=== PATIENT | female | born 1955 | race Caucasian/White ===

== ENCOUNTER 2019-04-28 07:08 | Outpatient (CLI) | payer MEDICARE, SELFPAY ==
--- NOTE | 2019-04-28 16:33 | WPDPFTINT ---
PFT Interpretation PFT Interpretation: DOS: 04/28/2019 REQUESTING: Dr. Mayers/ [place] REASON FOR TESTING: Asthma PULMONARY FUNCTION TESTS Results are reliable and reproducible. Spirometry: FEV1 is 54%, 1.3 L, moderately reduced. FVC 57%, moderately reduced. FEV1% is 76% consistent with airflow obstruction. [id number]% is reduced at 38%, increases by 24% after bronchodilator administration. Lung volumes: Total lung capacity is 61%, mildly reduced. RV/TLC ratio is 39% mild air trapping. Airway resistance is increased. Diffusion: DLCO is 62%, mildly decreased. Flow volume loop: Scooping of the expiratory limb. IMPRESSION: Mild obstructive ventilatory impairment which is severe in the small airways with a good response to bronchodilator in the small airways. Mild restriction, mild air trapping, increased airway resistance, and mild diffusion impairment. This is a mixed pattern with obstructive and restrictive processes. Elsi Sarkar MD
== END 2019-04-28 07:09 | disposition home or self-care (01) ==
LOC: CHSCARD 07:11
PROVIDERS: PCP Family Medicine; Visit Provider Internal Medicine Critical Care Medicine
DX: J45.909 Unspecified asthma, uncomplicated (principal)
CPT/HCPCS: 94060; 94726; 94729

== ENCOUNTER 2019-04-30 19:58 | Outpatient (CLI) | payer MEDICARE, SELFPAY ==
--- NOTE | 2019-05-18 12:33 | SLEEP_ITS ---
Split-night sleep study. DATE OF STUDY: 04/30/2019 ORDERING PHYSICIAN: Elsi Sarkar M.D. REASON FOR STUDY: History of hypercapnic hypoxemic respiratory failure, suspected obstructive sleep apnea syndrome. HISTORY: This patient is a 64-year-old female, 66 inches tall, weighing 214 pounds with a body mass index of 34.5. She has a history of hypercapnia with underlying lung disease, asthma, and witnessed apneas. She does not usually snore and it is not loud enough that others complain about it. She occasionally has trouble sleeping with a cold. She does not gasp for breath at night. She has been told by others that she does not breathe normally at night. She occasionally sweats excessively at night and occasionally notices her heart pounding or beating irregularly at night. She rarely falls asleep during the day. She does not fall asleep involuntarily or while driving. She does not have loss of muscle tone with strong emotion. She denies daytime difficulties due to excessive sleepiness. She does not feel paralyzed on waking or falling asleep and does not have vivid dreamlike scenes upon awakening or falling asleep. She is never afraid to go to sleep. She rarely has nightmares. She occasionally remembers her dreams. She frequently has racing thoughts. She rarely feels sad or depressed. She occasionally has anxiety. She does not have muscular tension. She rarely notices parts of her body jerking. She does not kick at night. She does not have crawly achy feelings in her legs. She rarely has leg pain at night. No morning jaw pain or grinding her teeth at night. She frequently is bothered by pain during the day. She occasionally is awakened by pain at night. She rarely wakes up feeling stiff in the morning with sore achy muscles or having pain in her neck or spine. Normal bedtime is 11:30-12 midnight taking 5 to 10 minutes to fall asleep, typically waking once at night to go to the bathroom. She wakes for the day at 7 to 8 a.m. Weekend schedule is the same. She does not take naps. MEDICAL COMORBIDITIES: Hypertension, asthma, seasonal allergies, kyphoscoliosis with restrictive lung physiology, history of DVT, pulmonary hypertension. MEDICATIONS: 1. Aspirin 325 mg a day. 2. Losartan 25 mg a day. 3. Metoprolol 25 mg daily. 4. Furosemide 40 mg a day. 5. Trelegy inhaler 1 puff daily. 6. Claritin 1 tablet daily. 7. Azelastine 1 squirt each nostril at night. 8. Benadryl 2 tablets at night as needed. 9. ProAir inhaler p.r.n. shortness of breath. HABITS: Tobacco, never smoked tobacco. One caffeinated beverage a day. No alcohol. DESCRIPTION OF THE STUDY: On the Mcandrews Sleepiness Scale, her score is 6. This was conducted as a split-night study using the KTM Advance multiple channel system including EOG, EEG, submental EMG, EKG, nasal and oral airflow using thermistors and nasal pressure sensors, chest and abdominal belts, body position data, and pulse oximetry. The study was scored using [facility] guidelines. Duration of the baseline diagnostic portion 185.1 minutes. Sleep time 165.5 minutes. Sleep efficiency 89.4%. Sleep latency was 14.7 minutes. REM latency 62 minutes. She had 4 awakenings. She spent 4.9 minutes awake after sleep onset. Sleep architecture showed 3% stage I sleep, 38.7% stage II sleep, 42.3% stage III sleep, and 16% stage REM. She spent 0.6% of this portion supine. The apnea-hypopnea index was 7.6. The obstructive index was 7.3 and the central index was 0.4. The lowest desaturation was 68%. She had 15 desaturations of 4% or greater for an index of 4.9. The REM desaturation index was 29.4. The mean saturation was 92.4%. She spent 48.6 minutes below 88%, which was 23.6% of the baseline portion. She had 12 obstructive apneas, 3 obs
== END 2019-04-30 19:59 | disposition home or self-care (01) ==
LOC: CHSCSM 20:00
PROVIDERS: PCP Family Medicine; Visit Provider Internal Medicine Critical Care Medicine
DX: G47.30 Sleep apnea, unspecified (principal)
CPT/HCPCS: 95811

== ENCOUNTER → 2019-05-08 13:00 | Outpatient (CLI) | payer MEDICARE, SELFPAY ==
--- NOTE | ~2019-05-08 | MMUS_ITS ---
EXAMINATION: MM diagnostic shreya BI w chastity, US breast LT limited HISTORY: Palpable lump in the upper outer quadrant of the left breast TECHNIQUE: Craniocaudal, mediolateral, and mediolateral oblique 3-D tomosynthesis images of the warren ts were performed and synthetic 2-D images were generated. CAD analysis was submitted and interpreted . High resolution limited left breast ultrasound was performed. COMPARISON: 06/20/2017, 06/06/2017, 03/28/2015, 05/22/2013 BREAST PARENCHYMAL COMPOSITION: The breasts are almost entirely fatty. FINDINGS: MAMMOGRAPHIC FINDINGS: There is no evidence of suspicious mass, calcification, or architectural distortion in either breast to suggest malignancy. There has been no suspicious interval change. No mammographic correlate is i dentified for the reported palpable abnormality of concern in the left breast. ULTRASOUND: There is no evidence of focal abnormal solid or cystic lesion in the vicinity of the reported palpabl e abnormalities concern of the left breast IMPRESSION: 1. No specific mammographic or sonographic correlate is identified for the reported palpable abnormal ity of concern in the left breast. Further evaluation at this time should be based on clinical assess ment. Continued follow-up physical examination is recommended. 2. Recommend routine screening mammography in one year. BI-RADS Category 1: Negative Reviewed, dictated and finalized at location A. IMPRESSION: 1. No specific mammographic or sonographic correlate is identified for the repo rted palpable abnormality of concern in the left breast. Further evaluation at this time should be based on clinical assessment. Continued follow-up physical examination is recommended. 2. Recommend routine screening mammography in one year. BI-RADS Category 1: Negative
== END ==
PROVIDERS: PCP Family Medicine; Visit Provider Obstetrics & Gynecology
DX: Z12.31 Encounter for screening mammogram for malignant neoplasm of breast (principal); N63.21 Unspecified lump in the left breast, upper outer quadrant
CPT/HCPCS: 76642; 77062; 77066; G0279

== ENCOUNTER → 2019-09-29 12:12 | Outpatient (CLI) | payer MEDICARE, SELFPAY ==
--- NOTE | ~2019-09-29 | DEXA_ITS ---
Bone Density Report Name: Lucita Vallejo Age: 64 Sex: Female Ethnicity: White Date of : 1955 Indication: osteopenia; history of glucocorticoids; asthma or emphysema; postmenopausal Referring Provider: DARLING MELGAR Study: Bone densitometry was performed. Exam Date: September 29, 2019 Accession number: [id number] Bone Density: Region BMD T-score Z-score Classification AP Spine (L1-L4) 0.818 -2.1 -0.3 Osteopenia Femoral Neck (Left) 0.659 -1.7 -0.2 Osteopenia Total Hip (Left) 0.914 -0.2 1.0 Normal Femoral Neck (Right) 0.674 -1.6 0.0 Osteopenia Total Hip (Right) 1.028 0.7 2.0 Normal Total Hip Mean 0.971 0.3 1.5 Normal World Health Organization criteria for BMD impression classify patients as: Normal (T-score at or above -1.0), Osteopenia (T-score between -1.0 and -2.5), or Osteoporosis (T-score at or below -2.5). 10-year Fracture Risk(1): Major Osteoporotic Fracture 15% Hip Fracture 2.1% Reported Risk Factors: [place] (), Neck BMD=0.659, BMI=32.9, glucocorticoids (1) FRAX(R) Version 3.08. Fracture probability calculated for an untreated patient. Fracture probability may be lower if the patient has received treatment. Previous Exams: Region Exam Age BMD T-score BMD Change BMD Change Date g/cm2 vs Baseline vs Previous AP Spine(L1-L4) 09/29/2019 64 0.818 -2.1 -0.067 -0.007 06/06/2017 62 0.826 -2.0 -0.060 0.026* 05/22/2013 58 0.800 -2.2 -0.086 0.018 01/08/2011 55 0.781 -2.4 -0.104 -0.043 01/06/2010 54 0.824 -2.0 -0.061 -0.011 01/06/2008 52 0.835 -1.9 -0.051* -0.051* 10/01/2005 50 0.885 -1.5 Total Hip(Left) 09/29/2019 64 0.914 -0.2 0.045 -0.109* 06/06/2017 62 1.023 0.7 0.154 0.048* 05/22/2013 58 0.975 0.3 0.106 0.044* 01/08/2011 55 0.931 -0.1 0.062 0.053* 01/06/2010 54 0.877 -0.5 0.009 -0.072 01/06/2008 52 0.949 0.1 0.081* 0.081* 10/01/2005 50 0.869 -0.6 Total Hip(Right) 09/29/2019 64 1.028 0.7 0.069 -0.020 06/06/2017 62 1.048 0.9 0.089 0.098* 05/22/2013 58 0.950 0.1 -0.009 0.066* 01/08/2011 55 0.884 -0.5 -0.075 -0.015 01/06/2010 54 0.899 -0.4 -0.060 -0.079 01/06/2008 52 0.977 0.3 0.019 0.019 10/01/2005 50 0.959 0.1
== END ==
PROVIDERS: Visit Provider Obstetrics & Gynecology
DX: Z78.0 Asymptomatic menopausal state (principal); M85.89 Other specified disorders of bone density and structure, multiple sites
CPT/HCPCS: 77080

== ENCOUNTER 2019-12-21 07:50 | Outpatient (CLI) | payer MEDICARE, SELFPAY ==
--- NOTE | 2020-01-20 11:48 | WPDHOMESLEEP ---
Sleep Study - Home Unattended Date of Study: 12/21/19 Ordering Provider: Elsi Sarkar MD Interpreting Physician: Elsi Sarkar MD Home Sleep Study Type: Apnea Link Air Height: 1.68 m Weight: 91.172 kg Body Mass Index: 32.4 Neck Circumference (inches): 17 [place]: 4 Reason for Sleep Study Known JESSEE and severe nocturnal hypoxemia, poor response to therapy Sleep History Lucita Vallejo is a 64 yo female with a history of congestive heart failure EF 45%, hypercapnic respiratory failure due to restrictive lung disease associated with to kyphoscoliosis as well as asthma-COPD overlap. She has been on BiPAP 02/01 with 2 liters/minute oxygen with sleep which was prescribed after her April 30, 2019 split night study. Although she has been complaint and the AHI was controlled, she has not felt better. She has not felt refreshed using it. Since that time she has lost 20 lb. The patient was hospitalized in February, had low oxygen levels with elevated carbon dioxide. She has a history of hypercapnia with underlying lung disease, asthma, and witnessed apneas. She does not usually snore and it is not loud enough that others complain about it. She occasionally has trouble sleeping with a cold. She does not gasp for breath at night. She has been told by others that she does not breathe normally at night. She occasionally sweats excessively at night and occasionally notices her heart pounding or beating irregularly at night. She rarely falls asleep during the day. She does not fall asleep involuntarily or while driving. She does not have loss of muscle tone with strong emotion. She denies daytime difficulties due to excessive sleepiness. She does not feel paralyzed on waking or falling asleep and does not have vivid dreamlike scenes upon awakening or falling asleep. She is never afraid to go to sleep. She rarely has nightmares. She occasionally remembers her dreams. She frequently has racing thoughts. She rarely feels sad or depressed. She occasionally has anxiety. She does not have muscular tension. She rarely notices parts of her body jerking. She does not kick at night. She does not have crawly achy feelings in her legs. She rarely has leg pain at night. No morning jaw pain or grinding her teeth at night. She frequently is bothered by pain during the day. She occasionally is awakened by pain at night. She rarely wakes up feeling stiff in the morning with sore achy muscles or having pain in her neck or spine. Normal bedtime is 11:30-12 midnight taking 5 to 10 minutes to fall asleep, typically waking once at night to go to the bathroom. She wakes for the day at 7 to 8 a.m. Weekend schedule is the same. She does not take naps. [facility] Past Medical History Medical History Acute and chronic respiratory failure with hypercapnia Asthma Asthma Asthma-COPD overlap syndrome Bronchitis CHF (congestive heart failure) Systolic Diverticulitis DVT (deep venous thrombosis) Both legs after a trip to [place] History of ovarian cyst History of pneumonia HTN (hypertension) with goal to be determined Kyphoscoliosis Pulmonary hypertension Surgical History Surgical History History of removal of ovarian cyst History of surgery on arm lt. 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 Her is the power state's attorney. She desires to be a full code.
[2020-01-25 13:22] VITALS: BMI 32.4
== END 2019-12-21 07:51 | disposition home or self-care (01) ==
LOC: ANHCSM 07:54
PROVIDERS: PCP Family Medicine; Visit Provider Internal Medicine Critical Care Medicine
DX: G47.33 Obstructive sleep apnea (adult) (pediatric) (principal)
CPT/HCPCS: 95806

== ENCOUNTER 2019-12-24 09:03 | Outpatient (CLI) | payer MEDICARE, SELFPAY ==
--- NOTE | 2019-12-27 13:03 | WPDPFTINT ---
PFT Interpretation PFT Interpretation: This Spirometry met all criteria for ATS standards and reproducibility FEV/FVC 71% FEV1 53% or 1.22 liters FVC 54% or 1.71 liters Flow volume loops showed significant expiratory coving. Impression: Moderate airflow obstruction. Clinical correlation is advised.
== END 2019-12-24 09:04 | disposition home or self-care (01) ==
PROVIDERS: PCP Family Medicine; Visit Provider Internal Medicine Critical Care Medicine
DX: J45.909 Unspecified asthma, uncomplicated (principal); R94.2 Abnormal results of pulmonary function studies
CPT/HCPCS: 94375

== ENCOUNTER 2020-06-29 15:10 | Outpatient (CLI) | payer MEDICARE, SELFPAY ==
[2020-06-29 15:59] LABS: SARS-CoV-2 RNA PCR Negative (Negative)
== END 2020-06-29 15:11 | disposition home or self-care (01) ==
LOC: CHSLAB 15:13
PROVIDERS: PCP Internal Medicine; Visit Provider Internal Medicine Critical Care Medicine
DX: Z01.812 Encounter for preprocedural laboratory examination (principal); Z20.822 Contact with and (suspected) exposure to COVID-19
CPT/HCPCS: C9803; U0003; U0005

== ENCOUNTER 2020-07-01 19:55 | Outpatient (CLI) | payer MEDICARE, SELFPAY ==
--- NOTE | 2020-07-08 09:14 | WPDSLEEPSTUD ---
Sleep Study Ordering Provider: Elsi Sarkar MD Interpreting Physician: Jose Rodriges MD Sleep Study Type: Polysomnogram Height: 1.68 m Weight: 92.986 kg Body Mass Index: 33.0 Neck Circumference (inches): 19 [place]: 2 Reason for Sleep Study Patient has history of obstructive sleep apnea which was identified during her hospitalization in 2019. Patient was recommended to use BiPAP but was aperture and Diederich intolerant. Currently has a mandibular advancement device. Sleep History Patient's sleep history does not mention significant sleep-related symptoms. . As a matter of fact patient mentions that she was unaware of the problem till she was informed about it in February of 2019. . [facility] Past Medical History Medical History Acute respiratory failure with hypoxia and hypercapnia Asthma-COPD overlap syndrome Bronchitis CHF (congestive heart failure) Systolic Diverticulitis DVT (deep venous thrombosis) Both legs after a trip to [place] History of ovarian cyst History of pneumonia HTN (hypertension) with goal to be determined Kyphoscoliosis Pulmonary hypertension Surgical History Surgical History History of removal of ovarian cyst History of surgery on arm lt. 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 Her is the power state's attorney. She desires to be a full code. She has 3 children. Lifelong nonsmoker. No alcohol. No illicit drugs. Lives with her Smoking status: Never smoker Second hand tobacco smoke exposure: No Alcohol intake: current Drinks per week: 1 Substance use: never Gender identity (if verbalized by the patient): Female Spiritual care concerns: No Agree to blood products: Yes Medications Home Medications Medication Instructions Recorded Confirmed Type albuterol sulfate [ProAir HFA] 2 puff INHALATION QID PRN 03/03/19 06/06/20 History aspirin 325 mg PO DAILY 03/03/19 06/06/20 History loratadine 10 mg PO DAILY 03/03/19 06/06/20 History losartan 25 mg PO DAILY 03/03/19 06/06/20 History metoprolol succinate 25 mg PO DAILY 03/03/19 06/06/20 History calcium carbonate 600 mg calcium 600 mg PO DAILY 12/31/19 06/06/20 History (1,500 mg) tablet cholecalciferol (vitamin D3) 50 50 mcg PO DAILY 12/31/19 06/06/20 History mcg (2,000 unit) capsule furosemide 20 mg tablet 40 mg PO DAILY tablet 06/06/20 06/06/20 History Sleep Procedure Patient underwent overnight polysomnography with the dental device in place. The device is Prosomnus ALYSON with javier. it was adjusted during the sleep study. Initial setting was 1 mm was increased to 3 mm in the last part of the study. Sleep Architecture Total recording time 520 minutes, total sleep time 336 minutes with 64.7% sleep efficiency. Sleep latency was 7 minutes, REM latency 381 minutes. Awake after sleep onset 176 minutes, stage N1 32.8%, N2 65.2%, N3 0%, stage R 1.9%. supine sleep 0% Respiratory Analysis CMS criteria used. - Patient had 1 central apnea with index 0.2, 16 hypopneas with index 2.9, AHI 3.0 . REM index 55.4, non-REM index 2.0. All events occurred in nonsupine sleep. Arousals Total arousals 138 with index 15.9, spontaneous arousals 121, snore arousals 14, hypopnea arousals 2, leg movement arousals 1. Periodic Limb Movements There was 1 isolated leg movement, no PLM. Oximetry D
[2020-07-08 09:34] VITALS: BMI 33.0
== END 2020-07-01 19:56 | disposition home or self-care (01) ==
LOC: CHSCSM 19:55
PROVIDERS: PCP Internal Medicine; Visit Provider Internal Medicine Critical Care Medicine
DX: G47.33 Obstructive sleep apnea (adult) (pediatric) (principal); I27.20 Pulmonary hypertension, unspecified
CPT/HCPCS: 95810

== ENCOUNTER 2021-12-18 11:10 | Outpatient (CLI) | payer MEDICARE, SELFPAY ==
--- NOTE | ~2021-12-18 | XR_ITS ---
XR chest 2V 12/18/2021 11:50 Indication: Hypoxia. Pulmonary fibrosis. Procedure: PA and lateral views of the chest Comparison: 03/03/2019 Findings: Cardiomegaly. Enlarged central pulmonary arteries consistent with pulmonary hypertension. B ibasilar airspace disease may represent atelectasis or pneumonia. There is a wedge-shaped deformity o f the upper thoracic spine. There is accentuated kyphosis at this level. Impression: 1: Bibasilar infiltrates may represent atelectasis and/or pneumonia. 2: Enlarged central pulmonary arteries consistent with pulmonary hypertension. Reviewed, dictated and finalized at location B. Impression: 1: Bibasilar infiltrates may represent atelectasis and/or pneumonia. 2: Enlarged central pulmonary arteries consistent with pulmonary hypertension.
[2021-12-18 11:28] LABS: Base Excess ABG 7.9 mmol/L (0-2); Basophils Absolute Auto 0.03 K/mm3 (0.00-0.10); Basophils Percent Auto 0.4 % (0.0-1.0); Eosinophils Absolute Auto 0.13 K/mm3 (0.02-0.50); Eosinophils Percent Auto 1.8 % (1.0-6.0); HCO3 ABG 35.9 mmol/L (23-29); Hematocrit 51.4 % (35.0-42.0); Hemoglobin 15.3 g/dL (11.7-13.8); Immature Granulocyte Absolute 0.02 K/mm3 (0.00-0.00); Immature Granulocyte Percent A 0.3 % (0.0-0.0); Lymphocytes Absolute Auto 1.23 K/mm3 (1.10-4.50); Lymphocytes Percent Auto 16.8 % (18.0-42.0); Mean Corpuscular HGB Conc 29.8 g/dL (32.0-36.0); Mean Corpuscular Hemoglobin 28.3 pg (27.0-31.0); Mean Platelet Volume 10.2 fl (9.2-11.8); Monocytes Percent Auto 10.9 % (2.0-11.0); Neutrophils Absolute Auto 5.1 K/mm3 (1.7-7.2); Neutrophils Percent Auto 69.8 % (50.0-70.0); Oxygen Content ABG 19.7 %vol (16.0-22.0); Oxygen Saturation ABG 87.3 % (95-97); Oxyhemoglobin 85.2 % (94-100); PCO2 ABG 62.8 mmHg (35-45); PO2 ABG 52.1 mmHg (75-85); Platelet Count Result 172 K/mm3 (150-420); Red Blood Count 5.41 M/mm3 (4.20-5.40); Total Hemoglobin 16.5 g/dL (12.0-18.0); White Blood Count 7.3 K/mm3 (4.8-10.8); pH ABG 7.38 (7.35-7.45)
[2021-12-18 11:29] LABS: Device ROOM AIR; Modified Allen's Test Pass; Site Drawn LEFT RADIAL
[2021-12-18 11:55] LABS: Hemoglobin A1C 6.3 % (<5.7)
[2021-12-18 12:14] LABS: Alanine Aminotransferase 27 U/L (14-59); Albumin Level 3.1 g/dL (3.4-5.0); Alkaline Phosphatase 57 U/L (46-116); Anion Gap 3 mmol/L (8-16); Aspartate Amino Transferase 23 U/L (15-37); Bilirubin,Total 0.4 mg/dL (0.00-1.00); Blood Urea Nitrogen 15 mg/dL (7-18); Calcium 8.2 mg/dL (8.5-10.1); Carbon Dioxide 38 mmol/L (21-32); Chloride 97 mmol/L (98-108); Cholesterol 130 mg/dL (0-200); Estimated Glomerular Filt Rate 59; Free T4 Free Thyroxine 1.07 ng/dL (0.76-1.46); Glucose 99 mg/dL (70-99); HDL Direct 39 mg/dL (40-60); LDL Cholesterol Calculated 75 mg/dL (<130); NT Pro B Type Natriuretic Pept 1052 pg/mL (0-125); Osmolality Calculated 286 mOsm/kg (285-295); Potassium 4.5 mmol/L (3.5-5.1); Sodium 138 mmol/L (136-145); Thyroid Stimulating Hormone 2.88 uIU/mL (0.36-3.74); Total Protein 6.7 g/dL (6.4-8.2); Triglycerides 79 mg/dL (0-150)
== END 2021-12-18 11:11 | disposition home or self-care (01) ==
PROVIDERS: PCP Internal Medicine; Visit Provider Internal Medicine
DX: I50.42 Chronic combined systolic (congestive) and diastolic (congestive) heart failure (principal); I27.20 Pulmonary hypertension, unspecified; R73.01 Impaired fasting glucose; R09.02 Hypoxemia
CPT/HCPCS: 36415; 36600; 71046; 80053; 80061; 82805; 83036; 83880; 84439; 84443; 85025

== ENCOUNTER 2021-12-19 08:46 | Outpatient (CLI) | payer MEDICARE, SELFPAY ==
--- NOTE | ~2021-12-19 | CT_ITS ---
EXAMINATION: CTA chest PE protocol DATE: 12/19/2021 10:00 INDICATION: Shortness of breath. TECHNIQUE: Computed tomography angiography (CTA) of the chest was performed with 100 mL Omnipaque-350 intravenous contrast timed to evaluate the pulmonary arteries. Coronal maximum intensity projection 3D-reconstructions were created by the technologist. Automated exposure control and iterative reconst ruction technique were employed. The dose-length product was 595.55 mGy-cm. COMPARISON: Chest CT 03/04/2019 FINDINGS: The lungs demonstrate mild atelectasis. Motion artifact is noted. A calcified left lung nod ule is consistent with old granulomatous disease. No pleural effusion. Cardiomegaly is noted. No rashaun cardial effusion. There is no pulmonary embolus. There is a 5 mm cyst in the liver. There are old rig ht rib deformities. There are segmentation anomalies in superior thoracic spine with focal kyphosis. IMPRESSION: 1. No pulmonary embolus. Sensitivity is severely decreased by motion artifact. 2. Cardiomegaly. Reviewed, dictated and finalized at location A.
[2021-12-19 10:40] VITALS: PULSE 87; O2SAT 95
[2021-12-19 10:42] VITALS: PULSE 110; O2SAT 83
[2021-12-19 10:45] VITALS: PULSE 95; O2SAT 83
[2021-12-19 10:48] VITALS: PULSE 94; O2SAT 83
[2021-12-19 10:51] VITALS: PULSE 98; O2SAT 93
--- NOTE | 2021-12-19 12:07 | HOMEO2EVAL ---
Evaluation was performed at [facility] Home Oxygen Evaluation RC: Home Oxygen (O2) Evaluation Start: 12/19/21 11:57 Freq: Status: Active Protocol: RPE Activity Type Activity Date Activity User E-sign Co-sign Detail Recorded Client Recorded Date Recorded By Document 12/19/21 10:40 [id number] 12/19/21 12:07 CH Document 12/19/21 10:42 CH [id number] 12/19/21 12:07 CH Document 12/19/21 10:45 [id number] 12/19/21 12:07 Document 12/19/21 10:48 [id number] 12/19/21 12:07 Document 12/19/21 10:51 CH [id number] 12/19/21 12:07 12/19/21 12/19/21 12/19/21 10:40 10:42 10:45 Home O2 Evaluation [Oxygen] -Test Phase Resting Exercise Exercise -Oxygen Delivery Room Air Room Air Nasal Cannula -Oxygen Flow Rate (L/min) 1 [Pulse Oximetry] -Pulse Oximetry (90-100 %) 95 83 L 83 L [Pulse Rate] -Pulse Rate (60-100 beats/min) 87 110 H 95 [Evaluation] -Activity Tolerance Fair Fair -Rating of Perceived Dyspnea (PD) +2 Mild, Some +2 Mild, Some Difficulty, Difficulty, Noticeable to Noticeable to the Observer the Observer -Rate of Perceived Exertion (PE) 9 Very light 9 Very light Query Text:Click the Protocol Button to View the RPE Scale [Exercise] -Ambulation Distance (feet) 130 190 -Ambulation Distance (meters) 39.62 57.90 [Comments] -Home Oxygen Evaluation Comments will begin walk will start 1 will increase . LPM. to 2 LPM. [Charges] -Treatment Charges O2 Evaluation - Outpatient 12/19/21 12/19/21 10:48 10:51 Home O2 Evaluation [Oxygen] -Test Phase Exercise Exercise -Oxygen Delivery Nasal Cannula Nasal Cannula -Oxygen Flow Rate (L/min) 2 3 [Pulse Oximetry] -Pulse Oximetry (90-100 %) 83 L 93 [Pulse Rate] -Pulse Rate (60-100 beats/min) 94 98 [Evaluation] -Activity Tolerance Fair Good -Rating of Perceived Dyspnea (PD) +2 Mild, Some +2 Mild, Some Difficulty, Difficulty, Noticeable to Noticeable to the Observer the Observer -Rate of Perceived Exertion (PE) 12 12 Query Text:Click the Protocol Button to View the RPE Scale [Exercise] -Ambulation Distance (feet) 250 260 -Ambulation Distance (meters) 76.19 79.24 [Comments] -Home Oxygen Evaluation Comments will increase Finished the to 3 lpm. walk on 3LPM with SPO2 at 93 % and above. Total walked 935 feet pushing a wheelchair. PLB encouraged. [Charges] -Treatment Charges
== END 2021-12-19 08:47 | disposition home or self-care (01) ==
LOC: CHSIMG 08:48
PROVIDERS: PCP Internal Medicine; Visit Provider Internal Medicine
DX: R06.02 Shortness of breath (principal); R09.02 Hypoxemia; I50.42 Chronic combined systolic (congestive) and diastolic (congestive) heart failure; I27.20 Pulmonary hypertension, unspecified
CPT/HCPCS: 71275; 94618; Q9967

== ENCOUNTER 2021-12-21 09:16 | Outpatient (CLI) | payer MEDICARE, SELFPAY ==
--- NOTE | ~2021-12-21 | CT_ITS ---
EXAMINATION: CT chest high resolution wo nv DATE: 12/21/2021 09:45 INDICATION: Shortness of breath. Low oxygen saturation. TECHNIQUE: Computed tomography (CT) of the chest was performed without intravenous contrast. The dose -length product was 334.58 mGy-cm. Automated exposure control and iterative reconstruction technique were employed. COMPARISON: CT dated 12/19/2021 FINDINGS: There is mild atherosclerosis of ectasia of the aorta. No evidence for aneurysm. Cardiomega ly. No significant pleural or pericardial effusion. There is a Bochdalek hernia. No thoracic lymphade nopathy. There are old right rib deformities. Segmentation anomalies in the upper thoracic spine. The re is bilateral basilar atelectasis/scarring without significant change. There is mild interlobular s eptal thickening of the right lower lobe. No pneumothorax. IMPRESSION: 1. Stable linear infiltrates of the mid and lower lungs with areas of interlobular septal thickening which may represent atelectasis and/or fibrosis. 2: Cardiomegaly. Reviewed, dictated and finalized at location B. IMPRESSION: 1. Stable linear infiltrates of the mid and lower lungs with areas of interlobu lar septal thickening which may represent atelectasis and/or fibrosis. 2: Cardiomegaly.
== END 2021-12-21 09:17 | disposition home or self-care (01) ==
LOC: CHSIMG 09:18
PROVIDERS: PCP Internal Medicine; Visit Provider Internal Medicine
DX: R06.02 Shortness of breath (principal); J84.10 Pulmonary fibrosis, unspecified
CPT/HCPCS: 71250

== ENCOUNTER 2021-12-29 13:16 | Outpatient (CLI) | payer MEDICARE, SELFPAY ==
--- NOTE | 2021-12-29 14:28 | ECHO_ITS ---
Patient Info Name: Lucita Vallejo Age: 66 years : 1955 Gender: Female Ht: 66 in Wt: 212 lbs BSA: 2.15 m2 HR: 79 bpm BP: 117 / 63 mmHg Technical Quality: Fair Exam Date: 12/29/2021 1:22 PM Exam Location: [facility] [place] Patient Status: Outpatient Admit Date: 12/29/2021 Staff Ordering Physician: Sreedhar Ortega MD Rheostat Assembler: Sidney Husain RDCS, RT Attending Provider: Sreedhar Ortega MD Referring Physician: Jordan MCFARLANE; Exam Type: CA echo doppler color flow Study Info Indications J96.91 - Respiratory failure, unspecified with hypoxia Complete two-dimensional, color flow and Doppler transthoracic echocardiogram is performed. Strain analysis performed. Summary 1. Complete two-dimensional, color flow and Doppler transthoracic echocardiogram is performed. 2. Left ventricular chamber dimension is normal. 3. Left ventricular systolic function is normal, estimated at 65-70%. 4. The left ventricular diastolic function is normal. 5. E/e' 5 is not elevated. 6. Global longitudinal strain is abnormal at -11.2%. 7. Left atrial chamber dimension is mildly enlarged. 8. There is mild tricuspid valve regurgitation. 9. Moderate pulmonary hypertension, estimated pulmonary arterial systolic pressure is 55 mmHg. 10. There is trace pulmonic regurgitation. Left Ventricle E/e' 5 is not elevated. Global longitudinal strain is abnormal at -11.2%. Left ventricular chamber dimension is normal. Left ventricular systolic function is normal, estimated at 65-70%. The left ventricular diastolic function is normal. Right Ventricle Right ventricular systolic function is normal and with normal TAPSE 2.3 cm. Right ventricular chamber dimension is normal. Left Atria Left atrial chamber dimension is mildly enlarged. Right Atria Right atrial chamber dimension is normal. Aortic Valve The aortic valve is trileaflet. There is no aortic valve stenosis. There is no aortic valve regurgitation. Pulmonic Valve There is trace pulmonic regurgitation. Mitral Valve There is no mitral valve stenosis. There is no mitral valve regurgitation. Tricuspid Valve There is mild tricuspid valve regurgitation. Moderate pulmonary hypertension, estimated pulmonary arterial systolic pressure is 55 mmHg. Pericardium/Pleural There is no pericardial effusion. Inferior Vena Cava Normal inferior vena cava with >50% collapse upon inspiration consistent with normal right atrial pressure, 5 mmHg. Aorta The aortic root size at the sinus of Valsalva is normal. Left Ventricular Outflow Tract Name Value Normal LVOT 2D LVOT Diameter 2.0 cm LVOT Doppler LVOT Peak Velocity 87 cm/s LVOT Peak Gradient 3 mmHg LVOT Mean Gradient 2 mmHg LVOT VTI 18 cm LVOT VTI/AV VTI Ratio 0.7 LVOT Stroke Volume 54 ml Mitral Valve Name Value Normal
== END 2021-12-29 13:17 | disposition home or self-care (01) ==
LOC: CHSIMG 13:17
PROVIDERS: PCP Internal Medicine; Visit Provider Internal Medicine
DX: R09.02 Hypoxemia (principal); I50.42 Chronic combined systolic (congestive) and diastolic (congestive) heart failure; I27.20 Pulmonary hypertension, unspecified; R73.01 Impaired fasting glucose
CPT/HCPCS: 93306

== ENCOUNTER 2022-01-04 15:02 | Outpatient (CLI) | payer MEDICARE, SELFPAY ==
--- NOTE | 2022-01-10 11:46 | P.PCNPFT_ITS ---
PFT Procedure Performed PFT Procedure Performed Plethysmography (Lung Vol) Diffusing Cap (DLCO) Flow Vol Loop Spirometry w/o Bronchodil PFT Interpretation This is a pulmonary function test with spirometry, plethysmography and diffusing capacity. The test was performed and results interpreted in accordance with the 2019 and 2005 ATS/ERS Task Force guidelines respectively using the Global Lung Function Initiative-2012 reference equations. Patient demonstrated good effort and cooperation. Reproducibility criteria were met. The quality of the spirometry maneuver was Grade A. Findings: Spirometry: The contour the expiratory flow tracing remain as embolus is that of a witch's hat . The FVC is 1.26 L, 40% predicted. The FEV1 is 0.92 L, 37% predicted. The FEV1: FVC ratio 73%. Plethysmography: The total lung capacity is 3.19 L, 59% predicted. The functional residual capacity is 2.04 L, 67% predicted. The residual volume is 1.66 L, 74% predicted. Diffusing capacity: The diffusing capacity unadjusted for hemoglobin and carboxyhemoglobin is 15.6, 72% predicted. The diffusing capacity adjusted for alveolar volume is 6.36, 150% predicted. Impression: There is a severe restrictive ventilatory abnormality. The spirometry is normal without evidence of an obstructive abnormality. The di ffusing capacity unadjusted for hemoglobin and carboxyhemoglobin is normal and is elevated when adjusted for alveolar volume. There are no prior studies for comparison
== END 2022-01-04 15:03 | disposition home or self-care (01) ==
LOC: ANHPFT 15:03
PROVIDERS: PCP Internal Medicine; Visit Provider Internal Medicine
DX: R09.02 Hypoxemia (principal); R06.00 Dyspnea, unspecified; J84.10 Pulmonary fibrosis, unspecified
CPT/HCPCS: 94375; 94726; 94729

== ENCOUNTER 2022-01-05 08:59 | Outpatient (CLI) | payer MEDICARE, SELFPAY | END 2022-01-05 09:00 | disposition home or self-care (01) | LOC: CHSCARD 09:01 | PROVIDERS: PCP Internal Medicine; Visit Provider Internal Medicine | DX: R09.02 Hypoxemia (principal); I50.42 Chronic combined systolic (congestive) and diastolic (congestive) heart failure; I27.20 Pulmonary hypertension, unspecified; R73.01 Impaired fasting glucose | CPT/HCPCS: 95012 ==

== ENCOUNTER 2022-04-18 18:08 | Outpatient (CLI) | payer MEDICARE, SELFPAY ==
[2022-04-18 18:59] LABS: Influenza A QL RT-PCR Negative (Negative); Influenza B QL RT-PCR Negative (Negative); SARS-CoV-2 RNA PCR Negative (Negative)
== END 2022-04-18 18:09 | disposition home or self-care (01) ==
LOC: CHSLAB 18:10
PROVIDERS: PCP Internal Medicine; Visit Provider Internal Medicine
DX: J06.9 Acute upper respiratory infection, unspecified (principal); Z20.822 Contact with and (suspected) exposure to COVID-19
CPT/HCPCS: 87636

== ENCOUNTER 2023-01-01 10:40 | Outpatient (CLI) | payer MEDICARE, SELFPAY ==
[2023-01-01 11:03] LABS: Base Excess ABG 7.4 mmol/L (0-2); Basophils Absolute Auto 0.05 K/mm3 (0.00-0.10); Basophils Percent Auto 0.9 % (0.0-1.0); Eosinophils Absolute Auto 0.19 K/mm3 (0.02-0.50); Eosinophils Percent Auto 3.3 % (1.0-6.0); HCO3 ABG 31.9 mmol/L (23-29); Hematocrit 46.4 % (35.0-42.0); Hemoglobin 13.6 g/dL (11.7-13.8); Immature Granulocyte Absolute 0.01 K/mm3 (0.00-0.00); Immature Granulocyte Percent A 0.2 % (0.0-0.0); Lymphocytes Percent Auto 24.2 % (18.0-42.0); Mean Corpuscular HGB Conc 29.3 g/dL (32.0-36.0); Mean Corpuscular Hemoglobin 29.4 pg (27.0-31.0); Mean Corpuscular Volume 100.2 fL (78.0-102.0); Mean Platelet Volume 10.4 fl (9.2-11.8); Monocytes Absolute Auto 0.47 K/mm3 (0.10-0.90); Monocytes Percent Auto 8.1 % (2.0-11.0); Neutrophils Absolute Auto 3.7 K/mm3 (1.7-7.2); Neutrophils Percent Auto 63.3 % (50.0-70.0); Oxygen Content ABG 19.7 %vol (16.0-22.0); PCO2 ABG 44.1 mmHg (35-45); PO2 ABG 108.7 mmHg (75-85); Platelet Count Result 199 K/mm3 (150-420); Red Blood Count 4.63 M/mm3 (4.20-5.40); Red Cell Distribution Width 12.4 % (11.6-14.4); Total Hemoglobin 14.5 g/dL (12.0-18.0); White Blood Count 5.8 K/mm3 (4.8-10.8); pH ABG 7.48 (7.35-7.45)
[2023-01-01 11:04] LABS: Device ROOM AIR; Modified Allen's Test Pass; Site Drawn LEFT RADIAL
[2023-01-01 11:07] LABS: Appearance Urine Clear (Clear); Bilirubin Urine 1+ (Negative); Blood Urine Negative (Negative); Color Urine Yellow (Yellow); Glucose Urine UA Negative (Negative); Ketones Urine Negative (Negative); Leukocyte Esterase Ur 1+ (Negative); Nitrate Urine Negative (Negative); Protein Urine Trace (Negative); Specific Grav Ur >= 1.030 (1.010-1.020)
[2023-01-01 11:12] LABS: Add Urine Microscopic? YES; Bacteria Urine 1+ /hpf; Mucus Urine Rare /lpf; RBC Urine None seen /hpf (0-2); Squamous Epithelial Cell Urine Few /hpf (Few)
[2023-01-01 11:13] LABS: MALB Creatinine Ratio 7.4 mg/g (0-30); Microalbumin Urine Random 25.2 mg/L
[2023-01-01 11:14] LABS: Hemoglobin A1C 5.9 % (<5.7)
[2023-01-01 11:36] LABS: Alanine Aminotransferase 20 U/L (14-59); Albumin Level 3.3 g/dL (3.4-5.0); Alkaline Phosphatase 65 U/L (46-116); Anion Gap 8 mmol/L (8-16); Aspartate Amino Transferase 13 U/L (15-37); Bilirubin,Total 0.5 mg/dL (0.00-1.00); Blood Urea Nitrogen 11 mg/dL (7-18); Carbon Dioxide 31 mmol/L (21-32); Chloride 99 mmol/L (98-108); Cholesterol 176 mg/dL (0-200); Creatine Kinase 40 U/L (26-192); Estimated Glomerular Filt Rate > 60; Free T4 Free Thyroxine 1.02 ng/dL (0.76-1.46); Glucose 111 mg/dL (70-99); HDL Direct 58 mg/dL (40-60); LDL Cholesterol Calculated 105 mg/dL (<130); NT Pro B Type Natriuretic Pept 58 pg/mL (0-125); Osmolality Calculated 286 mOsm/kg (285-295); Potassium 3.5 mmol/L (3.5-5.1); Sodium 138 mmol/L (136-145); Thyroid Stimulating Hormone 3.65 uIU/mL (0.36-3.74); Total Protein 7.1 g/dL (6.4-8.2); Triglycerides 64 mg/dL (0-150)
== END 2023-01-01 10:41 | disposition home or self-care (01) ==
LOC: CHSLAB 10:43
PROVIDERS: PCP Internal Medicine; Visit Provider Internal Medicine
DX: I50.42 Chronic combined systolic (congestive) and diastolic (congestive) heart failure (principal); I27.20 Pulmonary hypertension, unspecified; J96.11 Chronic respiratory failure with hypoxia; I10 Essential (primary) hypertension; R73.01 Impaired fasting glucose
CPT/HCPCS: 36415; 36600; 80053; 80061; 81001; 82043; 82550; 82805; 83036; 83880; 84439; 84443; 85025

== ENCOUNTER 2023-03-19 10:18 | Outpatient (CLI) | payer MEDICARE, SELFPAY ==
[2023-03-19 11:41] LABS: Anion Gap 4 mmol/L (8-16); Blood Urea Nitrogen 9 mg/dL (7-17); Calcium 8.6 mg/dL (8.4-10.2); Carbon Dioxide 38 mmol/L (22-30); Chloride 97 mmol/L (98-107); Estimated Glomerular Filt Rate > 60; Glucose 100 mg/dL (65-110); Sodium 139 mmol/L (137-145)
== END 2023-03-19 10:19 | disposition home or self-care (01) ==
LOC: ANHSURGERY 10:23
PROVIDERS: Anesthesiology; PCP Internal Medicine; Visit Provider Surgery
DX: Z01.818 Encounter for other preprocedural examination (principal); I27.20 Pulmonary hypertension, unspecified
CPT/HCPCS: 36415; 80048

== ENCOUNTER 2023-03-22 00:27 | Day surgery (SDC) | payer MEDICARE, SELFPAY ==
--- NOTE | 2023-03-14 12:52 | PC.NURSE ---
Report to the Outpatient Waiting Room, entrance under the green pavilion located off [facility], at time 1 PM on date ___03/22/23 ____. Planned Procedure Time: __3 PM . Time changes happen often and if your time is changed the preop area will call you the afternoon before. - You and your visitor will be asked to self-screen and do not enter if you have any COVID symptoms. - A mask is optional within the hospital at this time. Patients may have clear liquids (water, carbonated beverages, clear teas, apple juice) until 3 hours prior to surgery( NOON) with a maximum of 20 ounces. - No food from midnight until time of surgery - Infants may have breast milk until 4 hours before surgery, formula 6 hours prior to surgery. - Children will be allowed to drink immediately following surgery. If applicable, please bring a bottle or sippy cup to assist with drinking. Juice, water, soda, and popsicles are readily available. For infants on formula, please bring formula the day of surgery. Pacifiers are allowed. Take the following medications with a SIP of water the morning of surgery: ___INHALER IF NEEDED,METOPROLOL DO NOT STOP ANY OF YOUR OTHER PRESCRIPTION MEDICATIONS PRIOR TO SURGERY ?EXCEPT THE FOLLOWING Medications to discontinue per physician ___PT STATES HOLD ASPIRIN 7 DAYS PRE OP PER DR HWANG.LAST DOSE 03/14/23. HOLD ALL VITAMINS AND SUPPLEMENTS 3 DAYS PRE OP .LAST DOSE 03/18/23 Please no make-up, nail greenlandic, hairspray, perfume, deodorant, or body powder the day of surgery. No jewelry (including any body piercings) or valuables the day of surgery, leave them at home. Please take a shower or bath the night before, or the morning of, surgery with an antibacterial soap. Wear comfortable, loose fitting clothing. Children are encouraged to wear pajamas. - Jewelry must be removed prior to entering the operating room. Rings and piercings that are not removed may be cut off. - The hospital will not accept responsibility for valuables. - Please leave all valuables, including medications, at home the day of surgery. If you are going home after surgery, a licensed furniture delivery driver must drive you home. - NO public transportation without another adult if you receive anesthesia. - We recommend that an adult stay with you for 24 hours following discharge. - We also recommend that you do not drive, make important decision, drink alcoholic beverages, or take any drugs that were not prescribed by your health care provider for at least 24 hours after your discharge time. For Pediatric surgeries, we recommend two adults accompany the child home. Follow any additional instructions given to you from your surgeon. If you or anyone in your household have experienced Covid symptoms in the past week, please notify your surgeon or the nurse liaison at the phone number below for possible testing. Telephone instructions given to __PATIENT and asked if any additional questions and then verbalized understanding. Patient advised to call surgeon office or pre surgery nurse liaison [phone] if any additional questions.
[2023-03-14 13:05] VITALS: BMI 35.5
[2023-03-22] VITALS (8 sets, daily range): BP systolic 111–135; BP diastolic 55–77; PULSE 72–84; RESP 12–20; TEMP 36.4–36.5; O2SAT 91–100
[2023-03-22] MEDS: LACTATED RINGERS 1,000 ML 30 ML IV CONT (12:50)
--- NOTE | 2023-03-22 13:03 | WPDANESEPPF ---
Anes - Initial Pre Proc Eval Procedure: Operation Date: 03/22/23 15:00 Proposed Procedures p Excision Back Cyst Times Two - Tyler Lopes DO Date/Time: 03/22/23 13:03 Surgeon: Tyler Lopes DO Pre Op Diagnosis: back cyst x2 1.5CM /1.2CM Patient Data Age: 68 Gender: F Height: 1.68 m Weight: 101 kg Last Vital Signs Temp 36.5 C 03/22/23 12:58 Pulse 79 03/22/23 12:58 Resp 20 03/22/23 12:58 BP 135/69 03/22/23 12:58 Pulse Ox 97 03/22/23 12:58 O2 Del Method Room Air 03/22/23 12:58 Allergies Allergy/AdvReac Type Severity Reaction Status Date / Time ibuprofen Allergy Unknown Swelling Verified 03/22/23 12:34 Penicillins Allergy Unknown Unknown Verified 03/22/23 12:34 Common Ragweed Allergy Mild NASAL AND Uncoded 03/22/23 12:34 CHEST CONGESTION Cat Dander Allergy Unknown ASTHMA Uncoded 03/22/23 12:34 SYMPTOMS Chicken Feathers Allergy Unknown NASAL Uncoded 03/22/23 12:34 CONGESTION AND SWELLING ASTHMA SYMPTOMS WHEEZING Dog Dander Allergy Unknown ASTHMA Uncoded 03/22/23 12:34 SYMPTOMS Dust Allergy Unknown ASTHMATIC Uncoded 03/22/23 12:34 SYMPTOMS WHEEZING AND COUGHING Grass Allergy Unknown NASAL Uncoded 03/22/23 12:34 CONGESTION AND WHEEZING Molds and Smuts Allergy Unknown SNEEZING Uncoded 03/22/23 12:34 NASAL AND CHEST CONGESTION Home Medications Medication Instructions Recorded Confirmed Type albuterol sulfate 90 mcg/actuation 2 puff inhalation QID PRN 03/03/19 03/14/23 History aerosol inhaler (ProAir HFA) Shortness Of Breath Or Wheezing aspirin 325 mg tablet 325 mg PO DAILY 03/03/19 03/14/23 History loratadine 10 mg tablet 10 mg PO DAILY 03/03/19 03/14/23 History losartan 25 mg tablet 25 mg PO DAILY 03/03/19 03/14/23 History cholecalciferol (vitamin D3) 50 50 mcg PO DAILY 12/31/19 03/14/23 History mcg (2,000 unit) capsule furosemide 20 mg tablet 60 mg PO DAILY 12/08/21 03/14/23 History calcium carbonate 600 mg calcium 300 mg PO DAILY 06/08/22 03/14/23 History (1,500 mg) tablet (Calcium) metoprolol succinate 25 mg 12.5 mg PO DAILY 06/08/22 03/14/23 History tablet,extended release 24 hr potassium chloride 10 mEq 10 meq PO DAILY 03/14/23 03/14/23 History tablet,extended release(part/cryst) (Roxann M) Patient hx anesthesia problems: none Family hx anesthesia problems: none Results Review: All pre-operative results and documents have been reviewed as part of the pre-operative evaluation. [facility] Past Medical History Medical History Acute respiratory failure with hypoxia and hypercapnia Bronchitis Cataracts, both eyes Diverticulitis DVT (deep venous thrombosis) Both legs after a trip to [place] History of ovarian cyst History of pneumonia HTN (hypertension) with goal to be determined Kyphoscoliosis Pulmonary hypertension Surgical History Surgical History History of removal of ovarian cyst History of surgery on arm lt. 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 Her is the power energy attorney. She desires to be a full code. She has 3 children. Lifelong nonsmoker. No alcohol. No illicit drugs. Lives with her Smoking status: Never smoker Second hand tobacco smoke e
--- NOTE | 2023-03-22 13:51 | PM.IMHP ---
H&P: HPI History of Present Illness Date/Time: 03/22/23 13:51 Chief Complaint: Back mass Narrative: This is a 68-year-old woman who presents for excision of 2 back masses. She reports no changes since last seen in the office. Review of Systems Review of Systems: All systems reviewed & are unremarkable except as noted in HPI and below Constitutional: Constitutional: Denies chills, Denies fever(s), Denies headache(s) and Denies weight loss Eyes: Eyes: Denies change in vision ENT: Denies dizziness, Denies headache(s), Denies neck mass and Denies throat swelling Cardiovascular: Cardiovascular: Denies chest pain, Denies lightheadedness and Denies dyspnea Respiratory: Respiratory: Denies cough, Denies dyspnea and Denies wheezing Gastrointestinal: Gastrointestinal: Denies abdominal pain, Denies change in bowel habits, Denies nausea and Denies vomiting Genitourinary: Genitourinary: Denies hematuria and Denies dysuria Musculoskeletal: Musculoskeletal: Reports as per HPI Integumentary/Breasts: Skin/Breast: Reports as per HPI Neurologic: Denies dizziness and Denies headache(s) Allergic/Immunologic: Allergic/Immunologic: Denies throat swelling and Denies wheezing PMFSH Past Medical History Medical History Acute respiratory failure with hypoxia and hypercapnia Bronchitis Cataracts, both eyes Diverticulitis DVT (deep venous thrombosis) Both legs after a trip to [place] History of ovarian cyst History of pneumonia HTN (hypertension) with goal to be determined Kyphoscoliosis Pulmonary hypertension Surgical History Surgical History History of removal of ovarian cyst History of surgery on arm lt. 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 Her is the power state attorney. She desires to be a full code. She has 3 children. Lifelong nonsmoker. No alcohol. No illicit drugs. Lives with her Smoking status: Never smoker Second hand tobacco smoke exposure: No Alcohol intake: current Drinks per week: 1 Substance use: never Living arrangements: with family Occupation/Education: retired Gender identity (if verbalized by the patient): Female Spiritual care concerns: No Agree to blood products: Yes Meds Home Medications and Allergies Home Medications Medication Instructions Recorded Confirmed Type albuterol sulfate 90 mcg/actuation 2 puff inhalation QID PRN 03/03/19 03/14/23 History aerosol inhaler (ProAir HFA) Shortness Of Breath Or Wheezing aspirin 325 mg tablet 325 mg PO DAILY 03/03/19 03/14/23 History loratadine 10 mg tablet 10 mg PO DAILY 03/03/19 03/14/23 History losartan 25 mg tablet 25 mg PO DAILY 03/03/19 03/14/23 History cholecalciferol (vitamin D3) 50 50 mcg PO DAILY 12/31/19 03/14/23 History mcg (2,000 unit) capsule furosemide 20 mg tablet 60 mg PO DAILY 12/08/21 03/14/23 History calcium carbonate 600 mg calcium 300 mg PO DAILY 06/08/22 03/14/23 History (1,500 mg) tablet (Calcium) metoprolol succinate 25 mg 12.5 mg PO DAILY 06/08/22 03/14/23 History tablet,extended release 24 hr potassium chloride 10 mEq 10 meq PO DAILY 03/14/23 03/14/23 History tablet,extended release(part/cryst) (Klor-Con M) Allergies Allergy/AdvReac Type Severity Reaction Status Date / Time ibuprofen Allergy Unknown Swe
[2023-03-22] MEDS: ceFAZolin 2 GM/D5W 50 ML 2 GM/50 ML BAG IVPB (14:27)
[2023-03-22] MEDS: LIDO 1%/EPINEPHRINE 1:100,000 50 ML VIAL 20 ML INFILTRATE (14:53)
--- NOTE | 2023-03-22 15:11 | P.OP_ITS ---
Procedure Note - Detailed Date of Procedure 03/22/23 Pre-op Diagnosis Left upper back cyst and right upper back cyst Post-op Diagnosis Same Procedure Performed 1. Excision of 1.5 cm left upper back cyst 2. Excision of 1.2 cm right upper back cyst Surgeon Tyler Lopes, DO Anesthesia MAC and Local (1% lidocaine with epinephrine) Indications This is a 68-year-old woman who presented with 2 separate back cysts. She had 1 on her left upper back that had drained in the past and does become painful at times as well. She has a smaller cyst on her right upper back that has started to increase in size but has not become as symptomatic as the left side. The 2 areas appeared to be inclusion cysts. Discussions were made with the patient about treatment options and decision was made to proceed with excision of 1.5 cm and 1.2 cm back cysts. Findings Both cyst were separately excised completely. The left upper back cyst was about 1.5 cm wide with margins and the right upper back cyst was 1.2 cm wide with margins. Both appeared to be consistent with inclusion cyst. The cysts were completely excised intact and sent to the lab for pathology. Description of Procedure Procedure as well as risks, benefits, and alternatives were discussed with the patient. Written consent was obtained and placed in chart prior to procedure. Patient was brought back to surgical suite. She was placed in left lateral de cubitus position. Time-out was done to confirm patient and procedure. LMA anesthesia was administered by the anesthesia department. Her back area was prepped and draped in sterile fashion using chlorhexidine prep. 1% lidocaine with epinephrine was infiltrated locally around each of the areas. An elliptical incision was made around the left upper back cyst with a 15 blade scalpel. The mass was completely excised sharply with the 15 blade scalpel. The entire back cyst was completely excised intact. The wound bed was then inspected and hemostasis was achieved with electrocautery. The skin edges were then reapproximated using 3-0 nylon vertical mattress interrupted sutures. I then moved my attention to the right upper back cyst. An elliptical incision was made around this cyst using a 15 blade scalpel and sharp dissection was used to carry out the dissection all the way down around the cyst. The cyst was completely excised intact and sent to the lab for pathology. Hemostasis was then achieved with electrocautery. The wound edges were then reapproximated using 3-0 nylon simple interrupted sutures. Bacitracin ointment was then applied over each incision followed by 4 x 4 gauze and tape. The patient was then awakened from anesthesia, extubated, and transferred to recovery. Estimated Blood Loss 5 Pathology Yes (1.5 cm left upper back cyst and 1.2 cm right upper back cyst) Complications No immediate complications Condition Stable Disposition Same day [facility] Billing Surgery - Charge Forward: Surgery Billing
--- NOTE | 2023-03-22 15:17 | WPDHPUPDATE1 ---
History and Physical Update Update Date/Time: 03/22/23 15:17 History and Physical has been reviewed, including an updated exam of the patient. There are NO changes in the patient's condition. Risks, benefits, and alternatives have been discussed and questions answered. Patient agrees to proceed with procedure.
== END 2023-03-22 17:09 | disposition home or self-care (01) ==
PROVIDERS: PCP Internal Medicine; Visit Provider Surgery
PROC: (CPT 11402; principal; 2023-03-22 15:00)
DX: L72.0 Epidermal cyst (principal); I10 Essential (primary) hypertension; I27.20 Pulmonary hypertension, unspecified; Z86.718 Personal history of other venous thrombosis and embolism; E66.9 Obesity, unspecified; Z68.35 Body mass index [BMI] 35.0-35.9, adult; Z79.51 Long term (current) use of inhaled steroids; Z79.82 Long term (current) use of aspirin
CPT/HCPCS: 11402 ×2; 88305; A9270; J0690; J1100; J1170; J2250; J2371; J2405; J2704; J3010; J7120

== ENCOUNTER 2023-07-15 12:44 | Outpatient (CLI) | payer MEDICARE, SELFPAY ==
--- NOTE | ~2023-07-15 | MM_ITS ---
EXAMINATION: MM screening shreya BI w chastity HISTORY: Screening TECHNIQUE: Craniocaudal and mediolateral oblique 3-D tomosynthesis images were obtained and synthetic 2-D images were generated. CAD analysis was submitted and interpreted. COMPARISON: Comparison to multiple prior studies sequentially, with oldest reviewed study dated 02/2015. BREAST PARENCHYMAL COMPOSITION: Not Dense: Breast are almost entirely fatty. FINDINGS: There is no evidence of suspicious mass, calcification, or architectural distortion to sugg est malignancy in either breast. There has been no suspicious interval change. IMPRESSION: 1. No mammographic evidence of malignancy. 2. Recommend routine screening mammography in one year. BI-RADS Category 1: Negative Reviewed, dictated and finalized at location A.
--- NOTE | ~2023-07-15 | DEXA_ITS ---
? Bone Density Report? Name:? suraj núñez Patient ID:??? [id number] Age:? 68 Sex:? Female Ethnicity:? White Date of : 1955 Indication: postmenopausal; screening for osteoporosis; height loss; asthma or emphysema; Referring Provider: Sreedhar Ortega Study: Bone densitometry was performed. Exam Date: July 15, 2023 Accession number: [id number] Bone Density: Region? BMD??? T-score? Z-score?? Classification AP Spine(L1-L4)? 0.783?? -2.4? -0.3? Osteopenia Femoral Neck (Left)? 0.664?? -1.7? 0.1? Osteopenia Total Hip (Left)? 0.878?? -0.5?0.9? Normal Femoral Neck (Right)? 0.692?? -1.4? 0.3? Osteopenia Total Hip (Right)? 0.939??? 0.0? 1.4? Normal Femoral Neck Mean? 0.678?? -1.5? 0.2? Osteopenia Total Hip Mean? 0.909?? -0.3? 1.2?Normal World Health Organization criteria for BMD impression classify patients as: Normal (T-score at or above -1.0), Osteopenia (T-score between -1.0 and -2.5), or Osteoporosis (T-score at or below -2.5). 10-year Fracture Risk(1): Major Osteoporotic Fracture? 9.2% Hip Fracture? 1.3% Reported Risk Factors: [place] (), Neck BMD=0.664, BMI=36.6 (1) FRAX? Version 3.08. Fracture probability calculated for an untreated patient. Fracture probability may be lower if the patient has received treatment. Clinical Information Provided by Patient: Has used the following medications: Actonel (i.e. risedronate), Evista (i.e. raloxifene), Vitamin D, Calcium Has the following medical conditions: Asthma or Emphysema Patient maximum height was 66 Menopause Age: 49 No regular weight bearing exercise Does not regularly consume dairy products Drinks caffeinated beverages Onset of menses at age 12 Number of children 3 Missed period for more than 6 months in a row Impression: The patient has low bone mass, based on the Total Spine T-score. Discussion: BONE DENSITY IS LOW AT ONE OR MORE SKELETAL SITES. This patient's lowest T-score is low at one or more skeletal sites.? It meets the World Health Organization's (WHO) criteria for ?low bone mass?? (T-score between -1.0 and -2.5).? The patient's 10-year risk of fracture as calculated by FRAX is less than the threshold where pharmacological therapy is recommended by the National Osteoporosis Foundation (NOF).? However, all treatment decisions require clinical judgment and consideration of individual patient factors, including patient preferences, comorbidities, previous drug use, risk factors not captured in the FRAX model (e.g., frailty, falls, vitamin D deficiency, increased bone turnover, interval significant decline in bone density) and possible under or overestimation of fracture risk by FRAX. The patient should follow a healthful lifestyle (good nutrition with adequate calcium and vitamin D, and appropriate weight-bearing exercise). Follow-Up: Consider repeating this study in 2 to 3 years to reassess this patie
== END 2023-07-15 12:45 | disposition home or self-care (01) ==
LOC: CHSIMG 12:48
PROVIDERS: PCP Internal Medicine; Visit Provider Internal Medicine
DX: Z12.31 Encounter for screening mammogram for malignant neoplasm of breast (principal); Z78.0 Asymptomatic menopausal state; M85.89 Other specified disorders of bone density and structure, multiple sites
CPT/HCPCS: 77063; 77067; 77080

== ENCOUNTER 2023-08-23 08:57 | Outpatient (CLI) | payer MEDICARE, SELFPAY ==
--- NOTE | 2023-08-23 09:10 | PC.NURSE ---
Here for OP infusion of reclast
[2023-08-23 09:28] VITALS: BMI 36.6
[2023-08-23 09:29] VITALS: BP 110/69; PULSE 93; RESP 18; TEMP 36.1; O2SAT 95
[2023-08-23] MEDS: ZOLEDRONIC ACID 5 MG/100 ML 100 ML 400 MG IVPB (09:37)
--- NOTE | 2023-08-23 09:42 | PC.NURSE ---
Education given on medication, reviewed possible side effects, verbalized understanding, printed copy to take home given to patient
[2023-08-23 10:05] VITALS: BP 109/65; PULSE 78; RESP 18
--- NOTE | 2023-08-23 10:10 | PC.NURSE ---
Tolerated infusion well, bandage over saline lock site with no bleeding, education on reclast to patient, denies any s/s of reaction noted, ambulatory on discharge
== END 2023-08-23 08:58 | disposition home or self-care (01) ==
PROVIDERS: PCP Internal Medicine; Visit Provider Internal Medicine
DX: M81.0 Age-related osteoporosis without current pathological fracture (principal)
CPT/HCPCS: 96365; J3489

== ENCOUNTER 2023-11-19 10:06 | Outpatient (CLI) | payer MEDICARE, SELFPAY ==
--- NOTE | ~2023-11-19 | XR_ITS ---
Left Hand Technique: PA, oblique, and lateral views were obtained. Clinical History: Carpal tunnel syndrome Findings: No acute fracture or dislocation is seen. Osseous alignment is anatomic. Joint spaces are p reserved. Soft tissues are unremarkable. Impression: Unremarkable left hand. Reviewed, dictated and finalized at location . Impression: Unremarkable left hand.
--- NOTE | ~2023-11-19 | XR_ITS ---
Right Hand Technique: PA, oblique, and lateral views were obtained. Clinical History: Carpal tunnel syndrome Findings: No acute fracture or dislocation is seen. Osseous alignment is anatomic. There is minimal d egenerative change of the first CMC joint. Soft tissues are unremarkable. Impression: Minimal degenerative change first CMC joint. Reviewed, dictated and finalized at location . Impression: Minimal degenerative change first CMC joint.
--- NOTE | 2023-11-19 11:00 | NEURO_ITS ---
Impression: # Complains of bilateral numbness of hand, left more than right. Non-diabetic. 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 # Needle/EMG Exam neurogenic in left ADM/1st DI Nerve Conduction Studies Anti Sensory Summary Table Stim Site NR Peak (ms) P-T Amp (?V) Site1 Site2 Delta-P (ms) Dist (cm) Alexy (m/s) Left Median Anti Sensory (2-3nd Digit) Wrist 3.7 45.7 Wrist 2-3nd Digit 3.7 14.0 38 Wrist 3.8 48.3 Wrist 2-3nd Digit 3.7 14.0 38 Right Median Anti Sensory (2-3nd Digit) Wrist 3.3 85.6 Wrist 2-3nd Digit 3.3 14.0 42 Wrist 3.3 90.0 Wrist 2-3nd Digit 3.3 14.0 42 Left Radial Anti Sensory (Base 1st Digit) Wrist 2.1 50.3 Wrist Base 1st Digit 2.1 0.0 Right Radial Anti Sensory (Base 1st Digit) Wrist 2.6 28.2 Wrist Base 1st Digit 2.6 0.0 Left Ulnar Anti Sensory (5th Digit) Wrist 3.2 16.2 Wrist 5th Digit 3.2 14.0 44 Right Ulnar Anti Sensory (5th Digit) Wrist 2.8 29.7 Wrist 5th Digit 2.8 14.0 50 Motor Summary Table Stim Site NR Onset (ms) O-P Amp (mV) Site1 Site2 Delta-0 (ms) Dist (cm) Alexy (m/s) Left Median Motor (Abd Poll Brev) Wrist 3.5 2.6 Elbow Wrist 5.2 29.0 56 Elbow 8.7 2.1 Right Median Motor (Abd Poll Brev) Wrist 3.8 1.7 Elbow Wrist 5.1 29.0 57 Elbow 8.9 1.2 Left Ulnar Motor (Abd Dig Minimi) Wrist 2.8 6.4 A Elbow Wrist 7.4 29.0 39 A Elbow 10.2 4.6 B Elbow Wrist 3.7 21.0 57 B Elbow 6.5 5.2 Right Ulnar Motor (Abd Dig Minimi) Wrist 2.8 5.4 A Elbow Wrist 5.5 31.0 56 A Elbow 8.3 4.8 F Wave Studies NR F-Lat (ms) L-R F-Lat (ms) Left Median (Mrkrs) (Abd Poll Brev) 30.66 1.29 Right Median (Mrkrs) (Abd Poll Brev) 29.38 1.29 Left Ulnar (Mrkrs) (Abd Dig Min) 28.91 0.85 Right Ulnar (Mrkrs) (Abd Dig Min) 29.77 0.85 EMG Side Muscle Nerve Root Ins Act Fibs Amp Dur Recrt Comment Right 1stDorInt Ulnar C8-T1 Nml Nml Nml Nml Nml Right Ext Indicis Radial (Post Int) C7-8 Nml Nml Nml Nml Nml Right Ext Digitorum Radial (Post Int) C7-8 Nml Nml Nml Nml Nml Right BrachioRad Radial C5-6 Nml Nml Nml Nml Nml Right PronatorTeres Median C6-7 Nml Nml Nml Nml Nml Right Abd Poll Brev Median C8-T1 Nml Nml Nml Nml Nml Right ABD Dig Min Ulnar C8-T1 Nml Nml Nml Nml Nml Left 1stDorInt Ulnar C8-T1 Nml Nml Nml >12ms +2 Left Ext Indicis Radial (Post Int) C7-8 Nml Nml Nml Nml Nml Left Ext Digitorum Radial (Post Int) C7-8 Nml Nml Nml Nml Nml Left BrachioRad Radial C5-6 Nml Nml Nml Nml Nml Left PronatorTeres Median C6-7 Nml Nml Nml Nml Nml Left Abd Poll Brev Median C8-T1 Nml Nml Nml Nml Nml Left ABD Dig Min Ulnar C8-T1 Nml Nml Nml >12ms +2 MTDD
== END 2023-11-19 10:07 | disposition home or self-care (01) ==
LOC: ANHNEURO 10:08
PROVIDERS: PCP Internal Medicine; Visit Provider Plastic Surgery
DX: G56.03 Carpal tunnel syndrome, bilateral upper limbs (principal); G56.22 Lesion of ulnar nerve, left upper limb
CPT/HCPCS: 73130; 95886; 95911

== ENCOUNTER 2024-08-25 07:01 | Outpatient (CLI) | payer MEDICARE, SELFPAY ==
--- NOTE | ~2024-08-25 | MM_ITS ---
EXAMINATION: MM screening shreya BI w chastity HISTORY: Screening mammogram, family history of breast cancer in her mother. TECHNIQUE: Craniocaudal and mediolateral oblique 3-D tomosynthesis images were obtained and synthetic 2-D images were generated. CAD analysis was submitted and interpreted. COMPARISON: 07/15/2023, 05/08/2019 BREAST PARENCHYMAL COMPOSITION:Not Dense. The breasts are almost entirely fatty FINDINGS: No suspicious mass, calcification, or architectural distortion are identified in either sanchez ast to suggest malignancy. There has been no suspicious interval change. IMPRESSION: No mammographic evidence of malignancy. Recommend routine screening mammography in one year. BI-RADS Category 1: Negative Reviewed, dictated and finalized at location .
--- NOTE | ~2024-08-25 | DEXA_ITS ---
Bone Density Report Name: TORITO JAMA Age: 69 Sex: Female Ethnicity: White Date of : 1955 Indication: osteopenia; monitoring treatment; asthma or emphysema; Referring Provider: Sreedhar Ortega Study: Bone densitometry was performed. Exam Date: August 25, 2024 Accession number: [id number] Bone Density: Region BMD T-score Z-score Classification AP Spine(L1-L4) 0.823 -2.0 0.1 Osteopenia Femoral Neck (Left) 0.670 -1.6 0.2 Osteopenia Total Hip (Left) 0.943 0.0 1.5 Normal Femoral Neck (Right) 0.673 -1.6 0.2 Osteopenia Total Hip (Right) 0.940 0.0 1.5 Normal Femoral Neck Mean 0.671 -1.6 0.2 Osteopenia Total Hip Mean 0.942 0.0 1.5 Normal World Health Organization criteria for BMD impression classify patients as: Normal (T-score at or above -1.0), Osteopenia (T-score between -1.0 and -2.5), or Osteoporosis (T-score at or below -2.5). 10-year Fracture Risk: FRAX not reported because: Treated for osteoporosis Previous Exams: Region Exam Age BMD T-score BMD Change BMD Change Date g/cm2 vs Baseline vs Previous AP Spine (L1-L4) 08/25/2024 69 0.823 -2.0 0.041 (5.2%)# 0.041 (5.2%)# 07/15/2023 68 0.783 -2.4 Total Hip(Left) 08/25/2024 69 0.943 0.0 0.065 (7.4%)# 0.065 (7.4%)# 07/15/2023 68 0.878 -0.5 Total Hip(Right) 08/25/2024 69 0.940 0.0 0.001 (0.1%)# 0.001 (0.1%)# 07/15/2023 68 0.939 0.0 *Denotes significance at 95% confidence level, LSC for AP Spine = 0.022 g/cm2, LSC for Total Hip = 0.027 g/cm2 # Denotes dissimilar scan types or analysis methods Clinical Information Provided by Patient: Is being treated for osteoporosis Has used the following medications: Actonel (i.e. risedronate), Evista (i.e. raloxifene), Reclast (i.e. zoledronate), Vitamin D, Calcium Has the following medical conditions: Asthma or Emphysema Patient maximum height was 66 Menopause Age: 49 No regular weight bearing exercise Does not regularly consume dairy products Drinks caffeinated beverages Onset of menses at age 12 Number of children 3 Missed period for more than 6 months in a row Impression: The patient has low bone mass, based on the Total Spine T-score. No significant bone loss was observed. Discussion: PATIENT UNDER TREATMENT WITH NO SIGNIFICANT BMD LOSS SINCE LAST EXAM. In an untreated patient, BMD typically declines with age. A lack of decline or gain is usually a sign that treatment is efficacious and fracture risk is reduced. It is important to ask patients whether they are taking their medications and to encourage continued and appropriate compliance with their osteoporosis therapies to reduce fracture risk. It is also important to review their risk factors and encourage appropriate calcium and vitamin D intakes, exercise, fall prevention and other lifestyle measures. Follow-Up: Consider a repeat BMD and Vertebral Fracture Assessment (VFA) exam in 2 years or sooner if medically necessary, to reassess this patient's status. Reported by: MARTHA on 08/25/2024 7:29:00 AM. Reviewed, dictated and finalized at location A.
--- OUTSIDE RECORDS SUMMARY | 2024-08-25 07:05 | XMS_ITS | Referral Summary ---
Author Organization [facility] [address] Address [address] [place] [address] Care Team Providers Care Sludge Filtration Attendant Name Role Phone Sreedhar Ortega MD Primary Care Provider [phone] Jacobo Becker MD Unavailable [phone] Bill Ortega MD Unavailable [phone] Bebe Loredo MD Unavailable Luis A Hernandez MD Unavailable Allergies Active Allergy Reactions Criticality Noted Date Comments Cat Dander Unknown 04/11/2023 Chicken Derived Shortness of breath High 02/08/2015 Patient reports allergy was indicated from a skin test with Fitness Management Director when she was young. States she eats eggs now with no issues. May trigger an issue with her asthma Dog Dander Unknown 04/11/2023 Egg Derived Unknown 02/08/2015 Feathers Unknown 04/11/2023 Grass Pollen Unknown 04/11/2023 House Dust Unknown 04/11/2023 Ibuprofen Swelling Medium 06/17/2017 Mold Unknown 04/11/2023 Penicillin G Rash Medium 06/17/2017 Ragweed Pollen Unknown 04/11/2023 Medications loratadine (CLARITIN) 10 mg tabletIndicatio ns:Allergic Rhinitis Take 2.5 tablets (25 mg total) by mouth underground mine machinery mechanic before breakfast Active furosemide (LASIX) 20 mg tabletIndicatio ns:Edema,hypert ension Take 3 tablets (60 mg total) by mouth underground mine machinery mechanic before breakfast 3 10/09/201 8 Active losartan (COZAAR) 25 mg tabletIndicatio ns:hypertension Take 1 tablet (25 mg total) by mouth underground mine machinery mechanic before breakfast Active albuterol HFA (PROVENTIL HFA,VENTOLIN HFA,PROAIR HFA) 90 mcg/actuation inhalerIndicati ons:Acute Asthma Attack Inhale 2 puffs every 4 hours Active cholecalciferol , vitamin D3, (VITAMIN D3 ORAL) Take 1 tablet by mouth underground mine machinery mechanic before breakfast Active calcium citrate 250 mg calcium tablet tabletIndicatio ns:Hypocalcemia Prevention Take 1 tablet (250 mg total) by mouth underground mine machinery mechanic before breakfast Active aspirin 325 mg tabletIndicatio ns:prevention of thrombosis Take 1 tablet (325 mg total) by mouth underground mine machinery mechanic before breakfast Active furosemide (LASIX) 40 mg tablet 3 Active metoprolol XL (TOPROL-XL) 25 mg extended release tabletIndicatio ns:hypertension Take 0.5 tablets (12.5 mg total) by mouth underground mine machinery mechanic before breakfast 45 tablet 3 3 Active Klor-Con M10 10 mEq CR tablet Take 1 tablet/capsule (10 mEq total) by mouth daily 3 Active Rybelsus 7 mg tablet Take 1 tablet (7 mg total) by mouth daily 4 Active Active Problems Problem Noted Date Diagnosed Date Shortness of breath 05/13/2024 Chronic obstructive pulmonar y disease, unspecified COPD type 04/01/2023 Interstitial lung disease 10/03/2022 Chronic respiratory failure with hypoxia and hyp ercapnia 05/10/2022 Mild obstructive sleep apnea 05/10/2022 On home oxygen therapy 05/10/2022 Dermatochalasis of both upper eyelids 12/16/2021 Overview (12/16/2021): Added automatically from request for surgery [id number] 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 11/26 Overview (12/16/2021): Added automatically from request for surgery [id number] Deep vein thrombosis (DVT) 04/27/2018 Pulmonary hypertension Resolved Problems Problem Noted Date Diagnosed Date Resolved Date Lesion of right eyelid 12/16/202104/11 Overview (12/16/2021): Added automatically from request for surgery [id number] Lesion of left eyelid 12/16/20212023 Overview (12/16/2021): Added automatically from request for surgery [id number] Hypoxia 04/11/2023 Immunizations Immunization Administration Dates Next Due Influenza, Quadrivalent, Spl it, Preservative Free, Intramuscular 01/22/2023,12/21/2021 Pneumococcal Conjugate PCV 13 04/12/2020 Pneumococcal Polysaccharide PPV23 10/27/2020 Tdap 12/03/2014 Social History Tobacco Use Types Packs/Day Years Used Date Smoking Tobacco: Never Smokeless Tobacco: Never Tobacco Cessation:Counseling Given: Not Answered AUDIT-C Answer Date Recorded Q1: How often do you have a drink containing alc ohol? Monthly or less 12/21/2021 Q2: How many drinks containi ng alcohol do you have on a typical day when you are drinking? 1 or 2 12/21/2021 Q3: How often do you have si x or more drinks on one occasion? Never 12/21/2021 Personal Safety Answer Date Recorded Getting School Help Needed Denies 02/06 Comments Unknown Sex and Gender Information Value Date Recorded Sex Assigned at Not on file Legal Sex Female 10:06 AM CDT Gender Identity Not on file Sexual Orientation Not on file Last Filed Vital Signs Vital Sign Reading Time Taken Comments Blood Pressure 114/71 05/13/2024 10:37 AM CDT Pulse 79 05/13/2024 10:37 AM CDT Temperature 36.1 C (97 F) 05/13/2024 10:37 AM CDT Respiratory Rate 18 05/13/2024 10:37 AM CDT Oxygen Saturation 94% 05/13/2024 10:37 AM CDT Inhaled Oxygen Concentration - - Weight 99.8 kg (220 lb) 05/13/2024 10:37 AM CDT Height 166.4 cm (5' 5.5) 05/13/2024 10:37 AM CD T Body Mass Index 36.05 05/13/2024 10:37 AM CDT Plan of Treatment Not on file Insurance MEDICARE [facility] MEDICARE [facility]ICARE [facility] MEDICARE [facility] Care Teams Sludge Filtration Attendant Relationship Specialty Start Date End Date Sreedhar Ortega MD [address] [place] [address] PCP - General Internal Medicine 12/14/21 Jacobo Becker MD [address] [facility] [address] [place] [address] Referring Physician Pulmonary Disease 05/05/22 Bill Ortega MD [address] [facility] [address] [place] [address] Consulting Physician Cardiology 05/05/22 Bebe Loredo MD [address] [facility] NEUROLOGY SLEEP [facility] [address] [place] [address] Consulting Physician Sleep Medicine 07/27/22 Luis A Hernandez MD [address] [address] Consulting Physician Cardiovascular Disease 05/13/24
--- OUTSIDE RECORDS SUMMARY | 2024-08-25 07:05 | XMS_ITS | Clinical Summary ---
Author Organization [facility] [address] Address [address] [place] [address] Care Team Providers Care Row Boss Name Role Phone Sreedhar Ortega MD Primary Care Provider [phone] Jacobo Becker MD Unavailable Bill Ortega MD Unavailable [phone] Bebe Loredo MD Unavailable Luis A Hernandez MD Unavailable [phone] Allergies Active Allergy Reactions Criticality Noted Date Comments Cat Dander Unknown 04/11/2023 Chicken Derived Shortness of breath High 02/08/2015 Patient reports allergy was indicated from a skin test with Senior Information Security Analyst when she was young. States she eats [...] 2.5 tablets (25 mg total) by mouth lifeguard before breakfast Active furosemide (LASIX) 20 mg tabletIndicatio ns:Edema,hypert ension Take 3 tablets (60 mg total) by mouth lifeguard before breakfast 3 10/09/201 8 Active losartan (COZAAR) 25 mg tabletIndicatio ns:hypertension Take 1 tablet (25 mg total) by mouth lifeguard before breakfast Active albuterol HFA (PROVENTIL HFA,VENTOLIN HFA,PROAIR HFA) 90 mcg/actuation inhalerIndicati ons:Acute Asthma Attack Inhale 2 puffs every 4 hours Active cholecalciferol , vitamin D3, (VITAMIN D3 ORAL) Take 1 tablet by mouth lifeguard before breakfast Active calcium citrate 250 mg calcium tablet tabletIndicatio ns:Hypocalcemia Prevention Take 1 tablet (250 mg total) by mouth lifeguard before breakfast Active aspirin 325 mg tabletIndicatio ns:prevention of thrombosis Take 1 tablet (325 mg total) by mouth lifeguard before breakfast Active furosemide (LASIX) 40 mg tablet 3 Active metoprolol XL (TOPROL-XL) 25 mg extended release tabletIndicatio ns:hypertension Take 0.5 tablets (12.5 mg total) by mouth lifeguard before breakfast 45 tablet 3 3 Active [...] (12/16/2021): Added automatically from request for surgery [id number] 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 11/26 Overview (12/16/2021): Added automatically from request for surgery [id number] Deep vein thrombosis (DVT) 04/27/2018 Pulmonary hypertension Resolved Problems Problem Noted Date Diagnosed Date Resolved Date Lesion of right eyelid 12/16/202104/11 Overview (12/16/2021): Added automatically from request for surgery [id number] Lesion of left eyelid 12/16/20212023 Overview (12/16/2021): Added automatically from request for surgery [id number] Hypoxia 04/11/2023 Immunizations Immunization Administration Dates Next Due Influenza, Quadrivalent, Spl it, Preservative Free, Intramuscular 01/22/2023,12/21/2021 Pneumococcal Conjugate PCV 13 04/12/2020 Pneumococcal Polysaccharide PPV23 10/27/2020 Tdap 12/03/2014 Surgical History Surgery Date Site/Laterality Comments TUBAL LIGATION CARDIAC CATHETERIZATION ANGIOPLASTY / STENTING ILIAC CATARACT EXTRACTION Bilateral Medical History Medical History Date Comments DVT of deep femoral vein (HCC) Sleep apnea CHF (congestive heart failure) (HCC) Pulmonary hypertension (HCC) Asthma Lesion of right eyelid 12/16/2021 Added aut omatically from request for surgery [id number] Lesion of left eyelid 12/16/2021 Added auto matically from request for surgery [id number] Hypoxia Family History Medical History Relation Name Comments Asthma Father Cancer Father Cancer Mother Heart disease Mother Heart failure Mother Hypertension Mother Stroke Mother Relation Name Status Comments Father Mother Social History Tobacco Use Types Packs/Day Years [...] on file Sexual Orientation Not on file Obstetrics History Last Filed Vital Signs Vital Sign Reading [...] 05/13/2024 10:37 AM CDT Plan of Treatment Health Maintenance Due Date Last Done Comments Breast Cancer Screening-Mammogram 1954 Colon Cancer Screening-Colonoscopy 1954 Depression Screening 1954 Fall Risk Assessment 1954 Hepatitis C Screening 1954 Osteoporosis Screening-Bone Density Scan 1954 Hepatitis B Screening 02/04/1972 Zoster Vaccine (1 of 2) 02/04/2004 Well Visit 65+ 2019 Covid-19 Vaccine (2023-2 5 season) 2024 11/06/2023, 12/14/2022, 02/14/2022, Additional history exists Influenza Vaccine (Season Ended) 2024 01/23/20 23, 12/21/2021 DTaP/Tdap/Td Vaccine (2 - Td or Tdap) 12/03/2024 12/03/2014 Pneumococcal vaccine 65+ Completed 10/27/2020, 03/28 Insurance MEDICARE [facility] MEDICARE [facility] MEDICARE [facility] [address] MEDICARE [facility] Care Teams Row Boss Relationship Specialty Start Date End Date Sreedhar Ortega MD [address] [place] [address] PCP - General Internal Medicine 12/14/21 Jacobo Becker MD [address] [place] [address] Referring Physician Pulmonary Disease 05/05/22 Bill Ortega MD [address] [facility] [address] [place] [address] Consulting Physician Cardiology 05/05/22 Bebe Loredo MD [address] [place] [address] NEUROLOGY SLEEP MED, [facility] [address] [place] [address] Consulting Physician Sleep Medicine 07/27/22 Luis A Hernandez MD [address] [facility] [place] [address] Consulting Physician Cardiovascular Disease 05/13/24
--- OUTSIDE RECORDS SUMMARY | 2024-08-25 07:05 | XMS_ITS | Data Portability ---
Author Organization [facility] [place] Address [address] [place] [address] Assessment No assessment recorded. Plan of Treatment Reminders Order Date Submit Date Provider Last Modified By Organization Details Last Modified Time Details Appointments None record ed. Lab None record ed. Referral None record ed. Procedures None record ed. Surgeries None record ed. Imaging None record ed. Medication Orders None record ed. Patient TargetsNo targets recorded. Patient InstructionsNo instructions recorded. Reason for Referral None Reported. Results Created Date Observation Date Name Description Value Unit Range Abnormal Flag Note LastModifiedBy Organization Detail LastModifiedTime 10/06/19 20 09/29/2019 DEXA, axial skele ton + verte bral fract ure asses sment No observ ation record ed. layran Not Available 2019 16:13:08 Result Notes None recorded. 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) w/o abn findings;P ractice ID: 0001 Not Available [facility] 0 21:54:24 Screening for malignant neoplasm of rectum Active 2017 Encounter for screening for malignant neoplasm of rectum;Pra ctice ID: 0001 Not Available [facility] 0 21:54:24 Screening for malignant neoplasm of cervix Active 2019 Encounter for screening for malignant neoplasm of cervix;Pra ctice ID: 0001 Not Available [facility] 0 21:54:24 Disorder of breast 54282209 Active 2019 Disorder of breast, unspecifie d;Practice ID: 0001 Not Available [facility] 0 21:54:24 Vitamin D deficienc y 91384148 Active 2010 Unspecifie d vitamin d deficiency ;Practice ID: 0001 Not Available [facility] 0 21:54:24 Disorder of bone and articular cartilage 470224130 Active 2010 Osteopenia ;Practice ID: 0001 Not Available [facility] 0 21:54:24 Leukocyto sis 079815924 Active 2012 LEUKOCYTOS IS NOS;Practi ce ID: 0001 Not Available [facility] 0 21:54:24 Benign essential hypertens ion 9551393 Active 2012 Benign essential hypertensi on;Practic e ID: 0001 Not Available [facility] 0 21:54:24 Specializ ed medical examinati on Active 2012 Routine gynecologi caitlyn examinatio n;Practice ID: 0001 Not Available [facility] 0 21:54:[address] Concept Active 2015 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) (routine) w abnormal findings;P ractice ID: 0001 Not Available [facility] 0 21:54:[address] Concept Active 2017 Anxiety disorder, unspecifie d;Practice ID: 0001 Not Available [facility] 0 21:54:25 Evaluatio n finding 883478000 Active 2017 Oth abn and inconclusi ve findings on dx imaging of breast;Rec orded Elsewhere: No Locatio n: [facility] Barbara rce: EHR Chroni c: N Practice ID: 0001 Billa ble Time: 11:50:43 AM Not Available [facility] 0 21:54:25 Breast lump 47274657 Active 2019 Unspecifie d lump in unspecifie d breast;Rec orded Elsewhere: No Locatio n: [facility] Barbara rce: EHR Chroni c: N Practice ID: 0001 Billa ble Time: 12:41:53 PM Not Available Count includes the [facility] 0 21:54:25 Body mass index 30+ - obesity 881548541 Active 2017 Body mass index (BMI) 36.0-36.9, adult;Nilay rded Elsewhere: No Locatio n: [facility] Barbara rce: EHR Chroni c: N Practice ID: 0001 Billa ble Time: 11:30:00 AM Not Available [facility] 0 21:54:26 Bone density finding 786166091 Active 2019 osteopenia ;Recorded Elsewhere: No Locatio n: [facility] Barbara rce: EHR Chroni c: N Practice ID: 0001 Billa ble Time: 02:30:00 PM Not Available Count includes the [facility] 0 21:54:27 Pain of breast 51224407 Active 2010 Mastodynia ;Practice ID: 0001 Not Available Count includes the [facility] 0 21:54:27 Problem Notes None recorded. Procedures Surgical History Date Name Laterality Status Provider Name and Address Organization Details Recorded Time 0 Other completed , P[facility] 08/19/2019 11:56:46 ligation of bilateral fallopian tubes completed , [facility] 08/19/2019 11:55:53 Ovarian Cystectomy completed , [facility] 08/19/2019 11:56:15 Imaging Results None recorded. Procedure Notes None recorded. Medical Equipment None Reported. Allergies Allergen ID Allergen Name Allergen Category Reaction Reaction Severity Criticality Documentation Date Start Date Code Code System Note Provider Name and Address Organization Details Recorded Time 1121 Product containin g penicilli n (product) medicatio n Not available Not available Not available 08/21/2019 [id number] DARLENE [facility] 0 14:36:09 Medications Name Sig Start Date Stop Date Status Note LastModified by Organization Details LastModified Time furosemid e 40 mg tablet 08/20 completed Not Available Not Available Not Available furosemid e 10 mg/mL injection solution inject 4 millilit er by intraven ous route over once active Prescrib ed Elsewher e: Yes Loca tion: Abhilash horn [facility] odify By: mateusz Horn ncounter DateTime : 05/15/19 02:45:00 PM Not Available Not Available Not Available Evista 60 mg tablet take 1 tablet by oral route every day 04/03 completed Prescrib ed Elsewher e: Yes Loca tion: Abhilash [facility] odify By: juancho rodriguez DateTime : 12/06/19 11 06:59:33 PM Not Available Not Available Not Available Zoloft 50 mg tablet take 1 tablet by oral route every day 05/14 completed Prescrib ed Elsewher e: No Locat ion: Abhilash horn [facility] odify By: mateusz Horn ncounter DateTime : 04/30/19 18 11:30:00 AM Not Available Not Available Not Available losartan 25 mg tablet take 1 tablet by oral route every day active Prescrib ed Elsewher e: Yes Loca tion: Abhilash [facility] odify By: parag rodriguez DateTime : 04/07/19 02:30:00 PM Not Available Not Available Not Available furosemid e 20 mg tablet 08/20 completed Not Available Not Available Not Available gabapenti n 100 mg capsule take 3 capsule by oral route 3 times every day 05/18 completed Prescrib ed Elsewher e: Yes Loca tion: Abhilash horn [facility] odify By: juancho rodriguez DateTime : 04/03/19 13 10:30:00 AM Not Available Not Available Not Available metoprolo l succinate ER 25 mg tablet,ex tended release 24 hr active Not Available Not Available Not Available Vitamin D2 1,250 mcg (50,000 unit) capsule take 1 capsule (34695ZA ITS) by oral route every week 04/07 completed Prescrib ed Elsewher e: No Locat ion: Abhilash horn [facility] odify By: parag rodriguez DateTime : 06/29/19 18 01:02:22 PM Not Available Not Available Not Available Cece Aspirin 325 mg tablet take 1 tablet by oral route every day active Prescrib ed Elsewher e: Yes Loca tion: Abhilash horn [facility] odify By: parag rodriguez DateTime : 04/07/19 02:30:00 PM Not Available Not Available Not Available metoprolo l tartrate 5 mg/5 mL intraveno us solution inject 5 millilit er by intraven ous route every 2 minutes for 3 doses active Prescrib ed Elsewher e: Yes Loca tion: Abhilash horn [facility] odify By: parag rodriguez DateTime : 04/07/19 02:30:00 PM Not Available Not Available Not Available Benadryl 25 mg capsule take 2 capsule by oral route 4 - 6 hours as needed 01/29 completed Prescrib ed Elsewher e: Yes Loca tion: Abhilash horn [facility] odify By: ary curran DateTime : 12/06/19 06:59:33 PM Not Available Not Available Not Available Spiriva with [employer] r 18 mcg and inhalatio n capsules active Not Available Not Available Not Available eszopiclo ne 3 mg tablet 08/20 completed Not Available Not Available Not Available aspirin active Not Available Not Avail able Not Available furosemid e active Not Available Not Available Not Available Vitamin D3 10 mcg (400 unit) capsule 04/29 completed Prescrib ed Elsewher e: Yes Loca tion: Abhilash horn [facility] odify By: bea curran DateTime : 12/08/19 01:00:00 PM Not Available Not Available Not Available ProAir HFA 90 mcg/actua tion aerosol inhaler inhale 2 puff by inhalati on route every 4 - 6 hours as needed active Prescrib ed Elsewher e: Yes Loca tion: Abhilash horn [facility] odify By: parag rodriguez DateTime : 04/07/19 02:30:00 PM Not Available Not Available Not Available Symbicort 160 mcg-4.5 mcg/actua tion HFA aerosol inhaler inhale 2 puff by inhalati on route 2 times every day in the morning and evening 05/14 completed Prescrib ed Elsewher e: Yes Loca tion: Abhilash horn [facility] odify By: mateusz joeveronica DateTime : 04/07/19 02:30:00 PM Not Available Not Available Not Available Actonel 150 mg tablet take 1 tablet (150MG) by oral route every month 04/29 completed Prescrib ed Elsewher e: No Locat ion: Abhilash horn [facility] odify By: bea rodriguezuntveronica DateTime : 05/06/19 14 10:34:10 AM Not Available Not Available Not Available loratadin e (bulk) 100 % powder active Prescrib ed Elsewher e: Yes [facility] By: parag rodriguez DateTime : 04/07/19 02:30:00 PM Not Available Not Available Not Available potassium chloride ER 20 mEq tablet,ex tended release 08/20 completed Not Available Not Available Not Available Spiriva Respimat 1.25 mcg/actua tion solution for inhalatio n inhale 2 puff by inhalati on route every day 05/14 completed Prescrib ed Elsewher e: Yes [facility] By: mateusz rodriguezuntveronica DateTime : 04/07/19 02:30:00 PM Not Available Not Available Not Available Trelegy Ellipta 100 mcg-62.5 mcg-25 mcg powder for inhalatio n inhale 1 puff by inhalati on route every day at the same time each day active Prescrib ed Elsewher e: Yes Loca tion: [facility] odify By: mateusz curran DateTime : 05/15/19 02:45:00 PM Not Available Not Available Not Available Vitals Date Recorded Body height Body mass index (BMI) Body weight Systolic blood pressure Diastolic blood pressure Provider Name and Address Organization Details Last Updated DateTime 08/21/2019 2011.68 cm 0.2 kg/m2 19892.66 g 108 mm[Hg] 69 mm[Hg] Yin [facility] 0 14:35:58 Social History None recorded. Functional Status None recorded. Mental Status None recorded. Family History Relationship Description Onset Age of this Age Resolved Age Notes LastModified by Organization Details LastModified Time Mother Family history of breast cancer jgumber Not available 2019 11:57:28 Mother Hypertensive disorder jgumber Not available 2019 11:57:51 Brother Hypertensive disorder jgumber Not available 2019 11:57:51 Paternal Grandfather Family history of stroke jgumber Not available 2019 11:58:30 Father Asthma jgumber Not available 11:58:45 Father Inflammatory disease of liver jgumber Not available 2019 11:59:34 Paternal Grandmother Diabetes mellitus jgumber Not available 2019 11:59:09 Sister Diabetes mellitus jgumber Not available 2019 11:59:09 Notes:Brother: Hypertension Family history of Diabetes mellitus Father: Hepatitis, Asthma, esophageal Cancer Maternal grandmother: Seizure disorder Mother: heart arythemia, Cancer, breast, Hypertension Paternal grandfather: Stroke Paternal grandmother: Diabetes mellitus Sister: low platelets, Diabetes mellitus Medical History No medical history recorded. Gynecological History Statement/Question Response Current Control Method None Obstetrics History GPAL:G 0 P 0 0 0 0 Past Encounters Encounter ID Performer Location Encounter Start Date Encounter Closed Date Diagnosis/Indication Diagnosis SNOMED-CT Code Diagnosis ICD10 Code Diagnosis Note [id number] MELISSA [facility] [address] [address] 08/21/2019 14:29:09 08/21/2019 15:09:44 Mass of left breast [id number] 8151388 N63.20 Patient is a 64yo white female with a family history of breast cancer. She is here for f/u 3mos breast exam of left breast where she felt a pea size hard mobile pebble like structure in left upper outer quadrant of breast. She does not feel there has been any changes in this area; her recent Mammo & breast US was neg in 04/2019. She still feeling concerned about this area due to her family history of breast cancer & other cancers that run in her family. She has requested a consult with a breast specialist to ensure this is not an area of concern. Exam is unchanged from last exam in 04/2019. Agreed to request for referral to breast specialist Ozzie. Time spent in visit is a total of 15 mins with at least 50% of visit consisting of counseling and review of plan of care. Health Concerns Section Related Observation LastModified by Organization Detai ls LastModified Time None Recorded Concern Status LastModified by Organization Details LastModified Time None Recorded Advance Directives Directive None Recorded Payers Insurance Date Sequence Insurance Name Policy Number Policy Mendez Covered Member ID Mendez Member ID Guarantor Name 05/14/2020 1 [place] Lucita Vallejo [id number] 08/21/2019 2 [employer] (MEDICARE SUPPLEMENT) Lucita Vallejo [id number] Notes Date Note Type Note Provider Name and Address Organization Details Recorded Time 08/21/2019 text/html Patient is a 64yo white female with a family history of breast cancer. She is here for f/u 3mos breast exam of left breast where she felt a pea size hard mobile pebble like structure in left upper outer quadrant of breast. She does not feel there has been any changes in this area; her recent Mammo & breast US was neg in 04/2019. She still feeling concerned about this area due to her family history of breast cancer & other cancers that run in her family. She has requested a consult with a breast specialist to ensure this is not an area of concern. Courtney Dos Santos, MELISSA- [address] [place], [address], [facility] 08/21/2019 15:01:23 OBGyn Episode Ob Episode Information Episode Created Date Number of Fetuses Patient Bloodtype Patient rh Status Prepregnancy Weight lbs Domestic Partner Domestic Partner Phone Father Name Anthropological Linguist Status 08/21/19 20 1 CLOSED Fetus Data First Name Last Name Admitted to NICU Weight (g) Sex Living Outcome Pediatric Complications Fetus ID Race Codes Race Delivery Type 2568 Antonio Calculation Initial Antonio Date Initial Exam Date Initial Exam Provider Initial Ultrasound Date Last Menstrual Period Date Ultra Sound Weeks Gestation 0 Eighteen To Twenty Week Antonio Update Ultra Sound Date Fundal Height At Umbil Quickening Date Ultra Sound Latest Weeks Gestation Final Antonio Confirmed By Final Antonio Confirmed Date Final Antonio Date Ultra Sound Latest Days Gestation 0 0 Menstrual History Last Menstrual Date Menses Monthly On Bcp Conception Prior Menses Frequency Hcg Plus Date Menarche Onset Age Delivery Information Delivery Date Delivery Type Labor Anesthesia Weeks Gestation Incision Type Labor Labor Length Hrs Delivered By Post Complications Tubal Sterilization Discharge Date Comments 5 Discharge Information Feeding Method Contraceptive Method Maternal HG B and HCT Levels Ob Episode Information Episode Created Date Number of Fetuses Patient Bloodtype Patient rh Status Prepregnancy Weight lbs Domestic Partner Domestic Partner Phone Father Name Anthropological Linguist Status 08/21/19 20 1 CLOSED Fetus Data First Name Last Name Admitted to NICU Weight (g) Sex Living Outcome Pediatric Complications Fetus ID Race Codes Race Delivery Type 2567 Antonio Calculation Initial Antonio Date Initial Exam Date Initial Exam Provider Initial Ultrasound Date Last Menstrual Period Date Ultra Sound Weeks Gestation 0 Eighteen To Twenty Week Antonio Update Ultra Sound Date Fundal Height At Umbil Quickening Date Ultra Sound Latest Weeks Gestation Final Antonio Confirmed By Final Antonio Confirmed Date Final Antonio Date Ultra Sound Latest Days Gestation 0 0 Menstrual History Last Menstrual Date Menses Monthly On Bcp Conception Prior Menses Frequency Hcg Plus Date Menarche Onset Age Delivery Information Delivery Date Delivery Type Labor Anesthesia Weeks Gestation Incision Type Labor Labor Length Hrs Delivered By Post Complications Tubal Sterilization Discharge Date Comments 8 Discharge Information Feeding Method Contraceptive Method Maternal HG B and HCT Levels Ob Episode Information Episode Created Date Number of Fetuses Patient Bloodtype Patient rh Status Prepregnancy Weight lbs Domestic Partner Domestic Partner Phone Father Name Anthropological Linguist Status 08/21/19 20 1 CLOSED Fetus Data First Name Last Name Admitted to NICU Weight (g) Sex Living Outcome Pediatric Complications Fetus ID Race Codes Race Delivery Type 2569 Antonio Calculation Initial Antonio Date Initial Exam Date Initial Exam Provider Initial Ultrasound Date Last Menstrual Period Date Ultra Sound Weeks Gestation 0 Eighteen To Twenty Week Antonio Update Ultra Sound Date Fundal Height At Umbil Quickening Date Ultra Sound Latest Weeks Gestation Final Antonio Confirmed By Final Antonio Confirmed Date Final Antonio Date Ultra Sound Latest Days Gestation 0 0 Menstrual History Last Menstrual Date Menses Monthly On Bcp Conception Prior Menses Frequency Hcg Plus Date Menarche Onset Age Delivery Information Delivery Date Delivery Type Labor Anesthesia Weeks Gestation Incision Type Labor Labor Length Hrs Delivered By Post Complications Tubal Sterilization Discharge Date Comments 2 Discharge Information Feeding Method Contraceptive Method Maternal HG B and HCT Levels
--- OUTSIDE RECORDS SUMMARY | 2024-08-25 07:05 | XMS_ITS | Encounter Summary ---
Author Organization [facility] Address [address] [place] [address] Phone Care Team Providers Care Home Comfort Advisor Name Role Phone Bruce Bush MD Primary Care Provider [phone] Sreedhar Ortega MD Primary Care Provider [phone] Jacobo Becker MD Unavailable [phone] Bill Ortega MD Unavailable [phone] Bebe Loredo MD Unavailable Luis A Hernandez MD Unavailable [phone] Encounter Details Date Type Department Care Team (Latest Contact Info) Description 10/14/2020 Orders Only [facility] Scanning, Provider Social History Tobacco Use Types Packs/Day Years Used Date Smoking Tobacco: Never Smokeless Tobacco: Never Comments Unknown Sex and Gender Information Value Date Recorded Sex Assigned at Not on file Legal Sex Female 10:06 AM CDT Gender Identity Not on file Sexual Orientation Not on file documented as of this encounter Plan of Treatment Not on file documented as of this encounter Procedures Procedure Name Priority Date/Time Associated Diagnosis Comments SCAN - LABS 10/14/2020 documented in this encounter Results * SCAN - LABS (10/14/2020) us Provider Scanning Final Result documented in this encounter Visit Diagnoses Not on filedocumented in this encounter Care Teams Home Comfort Advisor Relationship Specialty Start Date End Date Bruce Bush MD [address] [facility] [place] [address] PCP - General Family Medicine 05/24/17 12/13/21 Sreedhar Ortega MD [address] [place], [place] [id number] PCP - General Internal Medicine 12/14/21 Jacobo Becker MD [address] [facility] [address] [place] [address] Referring Physician Pulmonary Disease 05/05/22 Bill Ortega MD [address] [facility] [address] [place] [address] Consulting Physician Cardiology 05/05/22 Bebe Loredo MD [address] [facility] NEUROLOGY SLEEP [facility] [address] [place] [address] Consulting Physician Sleep Medicine 07/27/22 Luis A Hernandez MD [address] [facility] [address] [address] Consulting Physician Cardiovascular Disease 05/13/24 documented as of this encounter
--- OUTSIDE RECORDS SUMMARY | 2024-08-25 07:05 | XMS_ITS | Encounter Summary ---
Author Organization [facility] Address [address] [place] [address] Phone Care Team Providers Care Citrus Picker Name Role Phone Bruce Bush MD Primary Care Provider [phone] Sreedhar Ortega MD Primary Care Provider [phone] Jacobo Becker MD Unavailable [phone] Bill Ortega MD Unavailable [phone] Bebe Loredo MD Unavailable Luis A Hernandez MD Unavailable [phone] Encounter Details Date Type Department Care Team (Latest Contact Info) Description 04/13/2020 Orders Only [facility] Scanning, Provider [...] Date/Time Associated Diagnosis Comments SCAN - LABS 04/13/2020 documented in this encounter Results * SCAN - LABS (04/13/2020) us Provider Scanning Final Result documented in this encounter Visit Diagnoses Not on filedocumented in this encounter Care Teams Citrus Picker Relationship Specialty Start Date End Date Bruce Bush MD [address] [facility] [place] [address] PCP - General Family Medicine 05/24/17 12/13/21 Sreedhar Ortega MD [address] [place], [place] [id number] PCP - General Internal Medicine 12/14/21 Jacobo Becker MD [address] [facility] [address] [place] [address] Referring Physician Pulmonary Disease 05/05/22 Bill Ortega MD [address] [facility] [address] [place] [address] Consulting Physician Cardiology 05/05/22 Bebe Loredo MD [address] [facility] NEUROLOGY SLEEP [facility] [address] [place] [address] Consulting Physician Sleep Medicine 07/27/22 Luis A Hernandez MD [address] [facility] [address] [address] Consulting Physician Cardiovascular Disease 05/13/24 documented as of this encounter
--- OUTSIDE RECORDS SUMMARY | 2024-08-25 07:05 | XMS_ITS | Clinical Summary ---
Author Organization [facility] Address [address] [place] [address] Care Team Providers Care Beamer Operator Name Role Phone Unavailable Primary Care Provider Unavailabl e Source Comments [facility],non-owned Affiliates and Associated Physician Practices is amultiple site organization consisting of ambulatory clinics and hospital sitesin [place], [place], [place] and [place]. This disclosure is being madepursuant to the Care Everywhere program and may not contain all information available regarding this patient. Last updated 17.[facility] Allergies Active Allergy Reactions Criticality Noted Date Comments Chicken-Derived Products Unknown 02/08/2015 Albumin Unknown 01/19/2019 Ibuprofen Swelling 02/08/2015 Penicillin G Rash Medium 02/08/2015 Medications * Be aware that medications may not be up to date on this document. Alwaysverify current medications with the patient. LOSARTAN POTASSIUM PO Active BABY ASPIRIN PO Acti ve SYMBICORT 160-4.5 MCG/ACT inhaler INHALE 2 PUFFS BY MOUTH TWICE DAILY IN THE MORNING AND EVENING 0 12/08/2018 Active furosemide (LASIX) 20 MG tablet Take 20 mg by mouth once daily 3 11/09/2018 Active metoprolol succinate XL 24hr (TOPROL XL) 25 MG tablet Take 25 mg by mouth once daily 3 11/13/2018 Active benzonatate (TESSALON) 200 MG capsuleIndicati ons:Cough Take 1 capsule by mouth 3 times daily as needed for Cough 30 capsule 01/19/2019 Active Social History Tobacco Use Types Packs/Day Years Used Date Smoking Tobacco: Never Smokeless Tobacco: Never Comments Unknown Sex and Gender Information Value Date Recorded Sex Assigned at Not on file Legal Sex Female 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 Gender Identity Not on file Sexual Orientation Not on file Last Filed Vital Signs Vital Sign Reading Time Taken Comments Blood Pressure 126/80 01/19/2019 5:21 PM BOARD MACHINE SET UP OPERATOR Pulse 84 01/19/2019 5:21 PM BOARD MACHINE SET UP OPERATOR Temperature 37.4 C (99.3 F) 01/19/2019 5:21 PM BOARD MACHINE SET UP OPERATOR Respiratory Rate 20 01/19/2019 5:21 PM BOARD MACHINE SET UP OPERATOR Oxygen Saturation 93% 01/19/2019 5:21 PM BOARD MACHINE SET UP OPERATOR Inhaled Oxygen Concentration - - Weight 104.3 kg (230 lb) 01/19/2019 5:21 PM BOARD MACHINE SET UP OPERATOR Height 167.6 cm (5' 6) 01/19/2019 5:21 PM BOARD MACHINE SET UP OPERATOR Body Mass Index 37.12 01/19/2019 5:21 PM BOARD MACHINE SET UP OPERATOR Plan of Treatment Health Maintenance Due Date Last Done Comments BONE DENSITY TESTING 1954 COLOGUARD (AGES 45-75) - COL ON CA SCREENING 1954 COLON MONITORING 1954 COLONOSCOPY - COLON CA SCREENING 1954 CT COLONOGRAPHY - COLON CA SCREENING 1954 Colorectal Cancer Screening 1954 FIT - COLON CA SCREENING 1954 FLEX SIG - COLON CA SCREENING 1954 LIPID TESTING 1954 MAMMOGRAM 1955 MEDICARE AWV 12 MONTHS 1954 HEPATITIS C SCREENING 01/30/1972 DTAP/TDAP/TD VACCINES (1 - Tdap) 1973 PNEUMOCOCCAL VACCINE 50+ (1 of 1 - PCV) 02/04/2004 ZOSTER VACCINE (1 of 2) 02/04/2004 SCREENING FOR DIABETES 01/19/2019 COVID-19 VACCINE (1 - 2023-2 5 season) 2023 DEPRESSION SCREENING 02/26/2024 INFLUENZA VACCINE (Season Ended) 2024 Respiratory Syncytial Virus (RSV) Vaccine Pt: or over 60 yrs (1 - 1-dose 75+ series) 2029 HEPATITIS B VACCINE Aged Out No longe r eligible based on patient's age to complete this topic HIB VACCINE Aged Out No longer eligi ble based on patient's age to complete this topic HPV VACCINE Aged Out No longer eligi ble based on patient's age to complete this topic MENINGOCOCCAL (Group B) VACC INE SHARED DECISION-MAKING Aged Out No longer eligibl e based on patient's age to complete this topic MENINGOCOCCAL GROUPS A/C/Y/W VACCINE Aged Out No longer eligible b ased on patient's age to complete this topic Insurance MEDICARE [facility] MEDICARE [facility]
--- OUTSIDE RECORDS SUMMARY | 2024-08-25 07:05 | XMS_ITS | Encounter Summary ---
Author Organization [facility] Address [address] [place] [address] Phone Care Team Providers Care Photoengraving Supervisor Name Role Phone Sreedhar Ortega MD Primary Care Provider [phone] Jacobo Becker MD Unavailable [phone] Bill Ortega MD Unavailable [phone] Bebe Loredo MD Unavailable Luis A Hernandez MD Unavailable [phone] Encounter Details Date Type Department Care Team (Latest Contact Info) Description 12/21/2021 Orders Only [facility] Scanning, Provider Social History Tobacco Use Types Packs/Day Years Used Date Smoking Tobacco: Never Smokeless Tobacco: Never AUDIT-C Answer Date Recorded Q1: How often do you have a drink containing alc ohol? Monthly or less 12/21/2021 Q2: How many drinks containi ng alcohol do you have on a typical day when you are drinking? 1 or 2 12/21/2021 Q3: How often do you have si x or more drinks on one occasion? Never 12/21/2021 Comments Unknown Sex and Gender Information Value Date Recorded Sex Assigned at Not on file Legal Sex Female 10:06 AM CDT Gender Identity Not on file Sexual Orientation Not on file documented as of this encounter Functional Status * Audit-C Score Answer Date of Assessment Author 1 12/21/2021 10:27 AM CDT Megan Rios RN * Question Answer Date of Assessment Author Q1: How often do you have a drink containing alcohol? Monthly or less 12/21/2021 10:27 AM Megan Chavez RN Q2: How many drinks containing alcohol do you have on a typical day when you are drinking? 1 or 2 12/21/2021 10:27 AM Megan Chavez RN Q3: How often do you have six or more drinks on one occasion? Never 12/21/2021 10:27 AM Megan Chavez RN documented as of this encounter Plan of Treatment Not on file documented as of this encounter Procedures Procedure Name Priority Date/Time Associated Diagnosis Comments SCAN - RADIOLOGY/IMAGING 12/21/2021 documented in this encounter Results * SCAN - RADIOLOGY/IMAGING (12/21/2021) Anatomical Region Laterality Modality Other us Provider Scanning Final Result documented in this encounter Visit Diagnoses Not on filedocumented in this encounter Care Teams Photoengraving Supervisor Relationship Specialty Start Date End Date Sreedhar Ortega MD [address] [place] [address] PCP - General Internal Medicine 12/14/21 Jacobo Becker MD [address] [facility] [address] [place] [address] Referring Physician Pulmonary Disease 05/05/22 Bill Ortega MD [address] [facility] [address] [place] [address] Consulting Physician Cardiology 05/05/22 Bebe Loredo MD [address] [facility] NEUROLOGY SLEEP MED, [facility] [address] [place] [address] Consulting Physician Sleep Medicine 07/27/22 Luis A Hernandez MD [address] [place] [place] [address] Consulting Physician Cardiovascular Disease 05/13/24 documented as of this encounter
--- OUTSIDE RECORDS SUMMARY | 2024-08-25 07:05 | XMS_ITS | Clinical Summary ---
Author Organization [facility] Address [address] [place] [address] Care Team Providers Care Signals Officer Name Role Phone Sreedhar Ortega MD Primary Care Provider [phone] Active Problems Problem Noted Date Diagnosed Date Interstitial lung disease (CMS/HCC HHS/HCC) 11/25 Social History Tobacco Use Types Packs/Day Years Used Date Smoking Tobacco: Never Assessed Comments Unknown Sex and Gender Information Value Date Recorded Sex Assigned at Not on file Legal Sex Female 4:14 PM CDT Gender Identity Not on file Sexual Orientation Not on file Plan of Treatment Health Maintenance Due Date Last Done Comments Colorectal Cancer Screening Colonoscopy (10 Years) 1954 Hepatitis C 02/04/1972 Mammogram Screening 1994 Zoster Vaccines (1 of 2) 02/04/2004 Annual Medicare Wellness Visit 2019 Dexa Scan (General) 2019 COVID-19 Vaccine ( season) 2023 02/14/2022, 09/07/2021, 12/24/2020, Additional history exists DTaP, Tdap and Td Vaccines (2 - Td or Tdap) 12/03/2024 12/03/2014 RSV Immunization or 60+ Years (1 - 1-dose 75+ series) 2029 Pneumococcal Vaccine: 50+ Years Completed 10/27/2020, 04/12/2020 Meningococcal B Vaccine Aged Out No l onger eligible based on patient's age to complete this topic Meningococcal Vaccine Aged Out No arnulfo abisai eligible based on patient's age to complete this topic RSV Immunizations Under 20 Months Aged Out No longer eligible based on patient's age to complete this topic Insurance MEDICARE [facility] Care Teams Signals Officer Relationship Specialty Start Date End Date Sreedhar Ortega MD [address] [place] [address] PCP - General INTERNAL MEDICINE 10/19/22
--- OUTSIDE RECORDS SUMMARY | 2024-08-25 07:05 | XMS_ITS | Data Portability ---
Author Organization [place] - [facility] OFFICE Address [address] [place] [address] Care Team Providers Care Working Second Hand Name Role Phone CLAYTON RK Primary Care Provider Assessment Encounter Date Assessment Date Assessment LastModified by Organization Details LastModified Time 12/27/2022 12/27/2022 Patient Examined by JAZMYN Bernal, Also Documentation reviewed and approved by supervising physician linette Not available 12/27/2022 11:32:02 Plan of Treatment Reminders Order Date Submit Date Provider Last Modified By Organization Details Last Modified Time Details Appointments ESTABLISH ED PATIENT DETAILED 2024 11:15A M Luis A Huntley i, MD Not available Not available Not available Lab None recorded. Referral None recorded. Procedures None recorded. Surgeries None recorded. Imaging None recorded. Medication Orders Rybelsus 7 mg tablet 2023 024 [email or web address] [facility]/Pharmacy #[id number], [address] [place], [address], 06/23/2024 10:51:50 losartan 25 mg tablet 2022 023 [facility][id number], [address] [place], [address], 12/27/2022 11:44:33 furosemid e 40 mg tablet 2022 023 [facility]/Pharmacy #[id number], [address] [place], [address], 12/27/2022 11:44:32 Patient TargetsNo targets recorded. Patient Instructions Encounter Date Encounter Id Patient Instructions Last Modified By Organization Details Last Modified Time 06/05/2022 [id number] Weight loss 20 pounds Exercise advised Low cholesterol diet advised Low sodium diet advised. [email or web address] Not available 06/05/2022 13:18:41 12/27/2022 [id number] Low cholesterol diet advised Low sodium diet advised. [email or web address] Not available 12/27/2022 11:44:27 Reason for Referral None Reported. Results Created Date Observation Date Name Description Value Unit Range Abnormal Flag Note LastModifiedBy Organization Detail LastModifiedTime 06/07/1906/05/2022 elect rocar diogr am No observ ation record ed. [email or web address] Not Available 2022 10:17:54 01/03/2012/27/2022 elect rocar diogr am No observ ation record ed. [email or web address] Not Available 2022 12:52:29 12/18/19 24 12/17/2023 elect rocar diogr am No observ ation record ed. [email or web address] Not Available 2023 11:24:22 06/25/19 25 06/23/2024 elect rocar diogr am No observ ation record ed. [email or web address] Not Available 2024 12:12:39 07/16/19 25 07/07/2024 , [facility] ardio gram No observ ation record ed. [email or web address] Not Available 2024 14:38:49 Result Notes None recorded. Problems Name Problem SNOMED Code Status Onset Date Resolution Date Notes Provider Name and Address Organization Details Recorded Time Asthma 601497551 Active 2017 Wen thompson [place] - [facility] 8 00:57:28 Seasonal allergy 587652847 Active 2017 Wen thompson [place] - [facility] 8 00:57:41 Congestive heart failure 00904144 Active 2017 Marcos thompson [place] - [facility] 2 14:01:03 On examination - systolic murmur Active 2017 Wen thompson [place] [facility] 8 01:01:10 Edema of lower extremity 861904115 Active 2017 Wen [place], [place] - [facility] 8 01:01:23 D-dimer above reference range 781013676 Active 2017 Halanahi [place] [facility] 8 01:01:38 Dyslipidemia 808377188 Active 2017 Marcos Juan [place] [facility] 2 13:43:18 Dyspnea 649357500 Active 2017 Halanahi [place] [facility] 8 01:02:19 Deep venous thrombosis 424568115 Active 2018 Rodríguezliza Juan [place] [facility] 9 11:36:01 Venous insufficiency of leg 996517134 Active 2018 Sahra Hiram [place] [facility] 9 09:40:18 Iliac vein compression syndrome 422049435 Active 2018 Marcos Juan [place] [facility] 9 16:34:33 Cellulitis 796915393 Active 2018 Luis A Huntley i, MD [address] [place], [address] [facility] [[email or web address] [place] - [facility] 9 17:13:27 Problem Notes None recorded. Medical Equipment None Reported. Allergies Allergen ID Allergen Name Allergen Category Reaction Reaction Severity Criticality Documentation Date Start Date Code Code System Note Provider Name and Address Organization Details Recorded Time 6903 ibuprofen medicatio n Not available Not available Not available 11/30/2017 5640 RxNorm Wen Cano [place], [place] [facility] 8 00:58:05 6904 ragweed pollen environme nt Not available Not available Not available 11/30/2017 44996 UNK Wen Cano [place] [facility] 8 00:58:40 6905 cat dander environme nt Not available Not available Not available 11/30/2017 42952 UNK Wen [place] [facility] 8 00:58:51 6906 feathers environme nt Not available Not available Not available 11/30/2017 [id number] UNK Wen Cano [facility] 8 00:59:23 6907 Canis lupus familiari s extract environme nt Not available Not available Not available 11/30/2017 00772 4 RxNorm Wen Cano [facility], [facility] 8 00:59:32 6908 house dust allergeni c extract environme nt,medica tion Not available Not available Not available 11/30/2017 55819 9 RxNorm Wen Cano [facility], [facility] 8 00:59:42 6909 grass pollen environme nt,medica tion Not available Not available Not available 11/30/2017 65863 UNK Wen Cano [facility] 8 00:59:49 6910 mold extract environme nt Not available Not available Not available 11/30/2017 98846 8 RxNorm Wen Cano [facility] 8 01:00:06 6911 Product containin g penicilli n (product) medicatio n Not available Not available Not available 11/30/2017 73671 8001 SNOMED Wen Cano [facility] 8 01:00:21 Medications Name Sig Start Date Stop Date Status Note LastModified by Organization Details LastModified Time furosemid e 40 mg tablet TAKE 1 TABLET BY MOUTH EVERY DAY DIRECTED . MAY TAKE AN EXTRA HALF A TABLET NEEDED active Not Available Not Available No t Available neomycin- polymyxin -hydrocor t 3.5 mg/mL-10, 000 unit/mL-1 % ear solution 03/16 completed No longer take it 04/29/18 : [place] Not Available Not Available Not Available clindamyc in HCl 300 mg capsule TAKE 2 CAPSULES BY MOUTH RIGHT AWAY, THEN 1 CAP EVERY 6 HOURS FOR 10 DAYS 06/23 completed Not Available Not Available Not Available clarithro mycin 250 mg tablet Take 1 tablet every 12 hours by oral route for 10 days. 07/15 completed Not Available Not Available Not Available azithromy ameena 250 mg tablet TAKE 2 TABLETS BY MOUTH TODAY, THEN TAKE 1 TABLET DAILY FOR 4 DAYS DIRECTED 06/23 completed Not Available Not Available Not Available aspirin 325 mg tablet Take 1 tablet every day by oral route as directed . active Not Available Not Available No t Available ofloxacin 0.3 % eye drops USE 1 DROP LEFT EYE 4 TIMES A DAY active Not Available Not Available No t Available clarithro mycin 500 mg tablet Take 1 tablet every 12 hours by oral route as directed for 4 days. 07/15 completed Not Available Not Available Not Available hydrocodo ne 5 mg-acetam inophen 325 mg tablet TAKE 1-2 TABLETS BY MOUTH EVERY 6 HOURS NEEDED FOR PAIN active Not Available Not Available No t Available Claritin 10 mg tablet Take 1 tablet every day by oral route as directed . active Not Available Not Available No t Available prednison e 20 mg tablet 12/03 completed NO LONGER TAKING;A L 12/03/17 Not Available Not Available Not Available sulfameth oxazole 800 mg-trimet hoprim 160 mg tablet TAKE 1 TABLET BY MOUTH EVERY 12 HOURS 12/25 completed Not Available Not Available Not Available oxycodone -acetamin ophen 5 mg-325 mg tablet 05/20 completed Not Available Not Available Not Available prednisol one acetate 1 % eye drops,waldo pension PUT 1 DROP IN LEFT EYE 4 TIMES A DAY active Not Available Not Available No t Available benzonata te 100 mg capsule TAKE 2 CAPSULES BY MOUTH 3 TIMES A DAY NEEDED FOR COUGH 12/05 completed Not Available Not Available Not Available doxycycli ne monohydra te 100 mg capsule TAKE 1 CAPSULE BY MOUTH TWICE A DAY 05/20 completed Not Available Not Available Not Available oseltamiv ir 75 mg capsule TAKE 1 CAPSULE BY MOUTH TWICE A DAY 05/20 completed Not Available Not Available Not Available losartan 25 mg tablet TAKE 1 TABLET BY MOUTH EVERY DAY DIRECTED active Not Available Not Available No t Available codeine 10 mg-guaife nesin 100 mg/5 mL oral liquid 05/27 completed No longer take it 04/29/18 : [place] Not Available Not Available Not Available furosemid e 20 mg tablet TAKE 1 TABLET BY MOUTH EVERY DAY 11/29 completed Not Available Not Available Not Available metoprolo l succinate ER 25 mg tablet,ex tended release 24 hr TAKE 1 TABLET BY MOUTH EVERY DAY active Not Available Not Available No t Available ergocalci ferol (vitamin D2) 1,250 mcg (50,000 unit) capsule 12/03 completed NO LONGER TAKING;A L 12/03/17 Not Available Not Available Not Available levofloxa ameena 500 mg tablet TAKE 1 TABLET BY MOUTH EVERY 24 HOURS active Not Available Not Available No t Available methylpre dnisolone 4 mg tablets in a dose pack TAKE 6 TABLETS ON DAY 1 DIRECTED ON PACKAGE AND DECREASE BY 1 TAB EACH DAY FOR A TOTAL OF 6 DAYS 06/23 completed Not Available Not Available Not Available sertralin e 50 mg tablet 12/03 completed NO LONGER TAKING;A L 12/03/17 Not Available Not Available Not Available doxycycli ne hyclate 100 mg tablet 05/27 completed No longer take it 04/29/18 : [place] Not Available Not Available Not Available potassium chloride ER 10 mEq tablet,ex tended release(p art/cryst ) TAKE 1 TABLET BY MOUTH EVERY DAY active Not Available Not Available No t Available Spiriva with [employer] r 18 mcg and inhalatio n capsules Inhale 1 capsule every day by inhalati on route as directed . 05/30 completed pt not taking 05/30/20 Not Available Not Available Not Available eszopiclo ne 3 mg tablet 05/30 completed pt not taking 05/30/20 Not Available Not Available Not Available Vitamin C 1qd 01/30 completed pt no longer takes 12/07/19 21 nj Not Available Not Available Not Available Vitamin D 1qd 12/25 completed Not Available Not Available Not Available multivita min 12/25 completed Not Available Not Available Not Available ProAir HFA 90 mcg/actua tion aerosol inhaler Inhale 2 puffs every 4 hours by inhalati on route as needed. 03/16 completed NEEDED 04/29/18 : [place] Not Available Not Available Not Available Symbicort 160 mcg-4.5 mcg/actua tion HFA aerosol inhaler Inhale 2 puffs twice a day by inhalati on route as directed . 11/29 completed pt no longer takes the medicati on as a month ago 11/30/19 20 rl Not Available Not Available Not Available Mucinex 1,200 mg tablet, extended release Take 1 tablet every day by oral route as directed . 07/15 completed No longer take it 04/29/18 : [place] Not Available Not Available Not Available Xarelto 15 mg tablet Take 1 tablet twice a day by oral route as directed . 01/21 completed WILL TAKE THIS MED UNTIL FINISH WITH BOTTLE;A L 12/03/17 ( WILL INCREASE D TO 20 MG QD) Not Available Not Available Not Available Xarelto 20 mg tablet Take 1 tablet every day by oral route as directed . 05/09 completed NO LONGER TAKING;A L 05/09/18 Not Available Not Available Not Available Eliquis 5 mg tablet Take 1 tablet twice a day by oral route. 07/15 completed Not Available Not Available Not Available potassium chloride ER 20 mEq tablet,ex tended release Take 1 tablet every day by oral route as directed . 2019 active Not Available Not Available Not Avai lable Jardiance 10 mg tablet TAKE 1 TABLET BY MOUTH EVERY DAY active Not Available Not Available No t Available Incruse Ellipta 62.5 mcg/actua tion powder for inhalatio n INHALE 1 PUFF (62.5 MCG) BY INHALATI ON ROUTE ONCE DAILY AT THE SAME TIME EACH DAY active Not Available Not Available No t Available Flonase Allergy Relief TAKE 1 PUFF BID 05/27 completed No longer take it 04/29/18 : [place] Not Available Not Available Not Available Trelegy Ellipta 100 mcg-62.5 mcg-25 mcg powder for inhalatio n 05/30 completed pt not taking 05/30/20 Not Available Not Available Not Available Rybelsus 7 mg tablet Take by oral route. 2024 active Not Available Not Available Not Avai lable ID NOW COVID-19 Test Kit TEST DIRECTED TODAY 12/05 completed Not Available Not Available Not Available Vitals Date Recorded Body height Body mass index (BMI) Body weight Heart rate Oxygen saturation Oxygen saturation in Arterial blood by Pulse oximetry Systolic blood pressure Diastolic blood pressure Provider Name and Address Organization Details Last Updated DateTime 4 167.64 cm 36 kg/m2 298203. 1 g 98 /min 95 % 95 % 128 mm[Hg] 76 mm[Hg] Rhina Dugan [place] - [facility] 4 11:13:15 Date Recorded Body height Body mass index (BMI) Body weight Heart rate Oxygen saturation Oxygen saturation in Arterial blood by Pulse oximetry Systolic blood pressure Diastolic blood pressure Provider Name and Address Organization Details Last Updated DateTime 3 167.64 cm 32 kg/m2 99639.2 9 g 84 /min 96 % 96 % 102 mm[Hg] 60 mm[Hg] Rhina [facility] 3 12:58:55 Date Recorded Body height Body mass index (BMI) Body weight Heart rate Oxygen saturation Oxygen saturation in Arterial blood by Pulse oximetry Systolic blood pressure Diastolic blood pressure Provider Name and Address Organization Details Last Updated DateTime 5 167.64 cm 35.5 kg/m2 81704.3 2 g 82 /min 95 % 95 % 102 mm[Hg] 64 mm[Hg] Rhina [facility] 5 10:59:28 Date Recorded Body height Body mass index (BMI) Body weight Heart rate Respiratory rate Oxygen saturation Oxygen saturation in Arterial blood by Pulse oximetry Systolic blood pressure Diastolic blood pressure Provider Name and Address Organization Details Last Updated DateTime 4 167.64 cm 35.8 kg/m2 940799. 79 g 90 /min 18 /min 94 % 94 % 144 mm[Hg] 88 mm[Hg] Rhina [facility] 4 17:34:16 Date Recorded Body height Body mass index (BMI) Body weight Heart rate Oxygen saturation Oxygen saturation in Arterial blood by Pulse oximetry Systolic blood pressure Diastolic blood pressure Provider Name and Address Organization Details Last Updated DateTime 3 167.64 cm 36.3 kg/m2 441566. 28 g 90 /min 98 % 98 % 129 mm[Hg] 73 mm[Hg] Eunice Maieruse [facility] 3 11:00:01 Social History Question Answer Notes LastModified by Organizat ion Details LastModified Time Tobacco Smoking Status Never Smoker Not Available [employer] 12/29/2019 03:30:42 What Is Your Level Of Caffeine Consumption? Occasional [id number] Information not available 12/29/2019 How Much Tobacco Do You Chew? None [id number] Information not available 12/29/2019 What Type Of Diet Are You Following? REGULAR [id number] Information not available 12/29/2019 Which Illicit Or Recreational Drugs Have You Used? None [id number] Information not available 12/29/2019 Live Alone Or With Others? With Others With Family [email or web address] Information not available 03/14/2019 Marital Status Unknown [email or web address] Informatio n not available 11/30/2019 What Was The Date Of Your Most Recent Tobacco Screening? 07/15/2018 [id number] Information not available 12/29/2019 How Much Tobacco Do You Smoke? No [id number] Information not available 12/29/2019 General Stress Level Medium [email or web address] Information not available 11/30/2019 How Many Years Have You Smoked Tobacco? 0 [id number] Information not available 12/29/2019 Sex: Unknown Functional Status Question Answer Note LastModified by Organizat ion Details LastModified Time What is your level of alcohol consumption? None [id number] Information not available 12/29/2019 Do you or have you ever used smokeless tobacco? Never used smokeless tobacco [id number] Information not available 12/29/2019 What is your occupation? retired [id number] Information not available 12/29/2019 Do you or have you ever used e-cigarettes or vape? Never used electronic cigarettes [id number] Information not available 12/29/2019 What is your exercise level? Occasional [id number] Information not available 12/29/2019 Mental Status None recorded. Family History Relationship Description Onset Age of this Age Resolved Age Notes LastModified by Organization Details LastModified Time Mother Congestive heart failure [email or web address] Not available 2017 12:21:22 Mother Malignant tumor of breast 70 [email or web address] Not available 2017 12:22:12 Mother Chronic obstructive pulmonary disease [email or web address] Not available 2017 12:22:25 Mother Hypertensive disorder hmesto Not available 2017 12:23:30 Sister Diabetes mellitus [email or web address] Not available 2017 12:22:46 Father Malignant tumor of esophagus 60 hmesto Not available 2017 12:23:10 Father Hypertensive disorder hmesto Not available 2017 12:23:30 Medical History Condition Response Congestive Heart Failure (CHF) Y Hyperlipidemia Y Asthma Y Gynecological HistoryNo gynecological history recorded. Obstetrics History GPAL:G 0 P 0 0 0 0 Past Encounters Encounter ID Performer Location Encounter Start Date Encounter Closed Date Diagnosis/Indication Diagnosis SNOMED-CT Code Diagnosis ICD10 Code Diagnosis Note [id number] Luis A Hernandez MD [place] OFFICE [facility] [place] [address] 12/03/2017 16:22:04 12/03/2017 18:01:57 Dyslipidemia 219326773 E78.5 Needs to keep LDL less than 70, and HDL more than 40 Will get lipid profile results from PCP Edema of l ower extremity 308630495 R60.0 Improving on lasix. Congestive heart failure 32315755 I50.9 ECHO on 11/13/17 showed an EF of 45% and mild mitral valve regurgitat ion. Deep venou s thrombosis 168987633 I82.409 On Xarelto. FU Venous duplex Tachycardia 9628429 R00. 0 12/03/17 HR elevated at 96 [id number] Luis A Hernandez MD [place] OFFICE [address] [place] [address] 01/21/2018 11:03:41 01/21/2018 11:45:55 Congestive heart failure 03535226 I50.9 ECHO on 11/13/17 showed an EF of 45% and mild mitral valve regurgitat ion. Will repeat Echo before next visit to check on heart function at this time. Dyslipidemia 726233937 E 78.5 Needs to keep LDL less than 70, and HDL more than 40. Will get lipid profile results from PCP. Edema of l ower extremity 634772978 R60.0 Improving on lasix. Deep venou s thrombosis 716929811 I82.409 On Xarelto. Had Venous Duplex on 12/17/17 showing negative bilateral venous study. Will need to stay on Xarelto for 4 more month Tachycardia 7716014 R00. 0 01/21/18: HR 87 [id number] Luis A Hernandez MD [place] OFFICE [address] [place] [address] 04/29/2018 10:17:24 04/29/2018 12:05:34 Congestive heart failure 14912347 I50.9 ECHO on 11/13/17 showed an EF of 45% and mild mitral valve regurgitat ion. Will repeat Echo before next visit to check on heart function at this time. Dyslipidemia 556030814 E 78.5 Needs to keep LDL less than 100, and HDL more than 40. No known DM, CAD or diabetes mellitus. LDL 134. Consider statin therapy. Edema of l ower extremity 950592782 R60.0 Improving on lasix. Deep venou s thrombosis 289578602 I82.409 On Xarelto.Wi ll d/c now. Full dose ASA Tachycardia 0057984 R00. 0 Resolved with metoprolol . She believes is making he hair fall out. [id number] Luis A Hernandez MD [place] OFFICE [address] [place] [address] 05/09/2018 09:19:35 05/09/2018 10:04:50 Congestive heart failure 55379593 I50.9 ECHO on 11/13/17 showed an EF of 45% and mild mitral valve regurgitat ion. Will repeat Echo before next visit to check on heart function at this time. Dyslipidemia 034905165 E 78.5 Needs to keep LDL less than 100, and HDL more than 40. No known DM, CAD or diabetes mellitus. LDL 134. Consider statin therapy. Edema of l ower extremity 164703877 R60.0 Improving on lasix. Deep venou s thrombosis 002878778 I82.409 On Xarelto.Wi ll d/c now. Full dose ASA Tachycardia 5953936 R00. 0 Resolved with metoprolol . She believes is making he hair fall out. Venous ins ufficiency of leg 917321952 I87.2 She underwent a venous duplex revealing no evidence of DVT but with SEVERE right popliteal vein with no filling defects. will arrange for iliac venous IVUS and possible stents compressio n stocking trial Iliac vein compression syndrome 464526177 I87.1 [id number] Luis A Hernandez MD [place] OFFICE [facility] [place] [address] 05/27/2018 10:45:15 05/27/2018 12:04:16 Congestive heart failure 16063140 I50.9 ECHO on 11/13/17 showed an EF of 45% and mild mitral valve regurgitat ion. 04/29/18 ECHO: LV chamber size is normal. There is normal global systolic function and contractil ity. There is moderate tricuspid regurgitat ion. Estimated RVSP is 58 mmHg. Continue with Lasix. Dyslipidemia 996252161 E 78.5 Needs to keep LDL less than 100, and HDL more than 40. No known DM, CAD or diabetes mellitus. LDL 134. Consider statin therapy. Edema of l ower extremity 846439057 R60.0 Improving on lasix. Deep venou s thrombosis 667055103 I82.409 Off Xarelto. On Eliquis now.Will d/c now. Full dose ASA Venous ins ufficiency of leg 585952088 I87.2 She underwent a venous duplex revealing no evidence of DVT but with SEVERE right popliteal vein with no filling defects. She underwent an iliac venous IVUS with iliac vein compressio n syndrome requiring stent placement to her right leg. Since then she has a SIGNIFICAN T AMOUNT OF BRUISING TO HER LEFT LEG WITH PAIN. SWELLING IS BETTER. compressio n stocking trialFU venous duplex Tachycardia 7304667 R00. 0 Resolved with metoprolol . She believes is making he hair fall out. Iliac vein compression syndrome 727663652 I87.1 Had Venous Duplex 04/29/18 : Negative left-sided venous study. Severe right popliteal vein reflux with no filling defects. She underwent an iliac venous IVUS with iliac vein compressio n syndrome requiring stent placement to her right leg. Since then she has a SIGNIFICAN T AMOUNT OF BRUISING TO HER LEFT LEG WITH PAIN. SWELLING IS BETTER. On Eliquis now. [id number] Luis A Hernandez MD [place] OFFICE [facility] [place] [address] 06/17/2018 16:16:38 06/22/2018 23:18:50 Iliac vein compression syndrome 816133209 I87.1 Had Venous Duplex 04/29/18 : Negative left-sided venous study. Severe right popliteal vein reflux with no filling defects. She underwent an iliac venous IVUS with iliac vein compressio n syndrome requiring stent placement to her right leg. She is currently on Eliquis. Has two more days left. Has two more days left then change to ASA. Congestive heart failure 27060136 I50.9 ECHO on 11/13/17 showed an EF of 45% and mild mitral valve regurgitat ion. 04/29/18 ECHO: LV chamber size is normal. There is normal global systolic function and contractil ity. There is moderate tricuspid regurgitat ion. Estimated RVSP is 58 mmHg. Continue with Lasix. Dyslipidemia 522758054 E 78.5 Needs to keep LDL less than 100, and HDL more than 40. No known DM, CAD or diabetes mellitus. LDL 134. Consider statin therapy. Edema of l ower extremity 905434214 R60.0 On Lasix. Deep venou s thrombosis 849621481 I82.409 Off Xarelto. She is currently on Eliquis. Has two more days left then change to ASA. Venous ins ufficiency of leg 510420942 I87.2 She underwent a venous duplex revealing no evidence of DVT but with SEVERE right popliteal vein with no filling defects. She underwent an iliac venous IVUS with iliac vein compressio n syndrome requiring stent placement to her right leg. Will get f/u Venous reflux study. compressio n stocking trial Tachycardia 9376994 R00. 0 Resolved with metoprolol . She believes is making he hair fall out. Cellulitis 882516204 L03 .90 Start abx. Has known PCN allergy.Wi ll get f/u Venous reflux study. [id number] Luis A Hernandez MD [address] [address] 07/15/2018 15:44:07 07/15/2018 20:57:32 Cellulitis 749737360 L03.90 Resolved after course of antibiotic s. Iliac vein compression syndrome 331719283 I87.1 Had Venous Duplex 04/29/18 : Negative left-sided venous study. Severe right popliteal vein reflux with no filling defects. She underwent an iliac venous IVUS with iliac vein compressio n syndrome requiring stent placement to her right leg. She finished eliquis and is on ASA 325mg daily. Congestive heart failure 42785810 I50.9 ECHO on 11/13/17 showed an EF of 45% and mild mitral valve regurgitat ion. 04/29/18 ECHO: LV chamber size is normal. There is normal global systolic function and contractil ity. There is moderate tricuspid regurgitat ion. Estimated RVSP is 58 mmHg. Continue with Lasix. Dyslipidemia 937132944 E 78.5 Needs to keep LDL less than 100, and HDL more than 40. No known DM, CAD or diabetes mellitus. LDL 134. Consider statin therapy. Deep venou s thrombosis 278536958 I82.409 Finished Eliquis. On ASA 325mg daily. Edema of l ower extremity 970721717 R60.0 On Lasix. Venous ins ufficiency of leg 277037840 I87.2 She underwent a venous duplex revealing no evidence of DVT but with SEVERE right popliteal vein with no filling defects. She underwent an iliac venous IVUS with iliac vein compressio n syndrome requiring stent placement to her right leg. Will get f/u Venous reflux study. compressio n stocking trial Tachycardia 8956660 R00. 0 Resolved with metoprolol . [id number] Luis A Hernandez MD [place] [facility] [address] [place] [address] 10/14/2018 12:34:20 10/15/2018 12:45:52 Cellulitis 867747976 L03.90 Resolved after course of antibiotic s. 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 Severe right popliteal vein reflux with no filling defects. She underwent an iliac venous IVUS with iliac vein compressio n syndrome requiring stent placement to her right leg. She finished eliquis and is on ASA 325mg daily. Congestive heart failure 04630215 I50.9 ECHO on 11/13/17 showed an EF of 45% and mild mitral valve regurgitat ion. 04/29/18 ECHO: LV chamber size is normal. There is normal global systolic function and contractil ity. There is moderate tricuspid regurgitat ion. Estimated RVSP is 58 mmHg. Continue with Lasix. Dyslipidemia 838309443 E 78.5 Needs to keep LDL less than 100, and HDL more than 40. No known DM, CAD or diabetes mellitus. LDL 134. Consider statin therapy. teo had made diet modificati ons Deep venou s thrombosis 487306380 I82.409 Finished Eliquis. On ASA 325mg daily. Edema of l ower extremity 582693262 R60.0 On Lasix. Venous ins ufficiency of leg 287988006 I87.2 She underwent a venous duplex revealing no evidence of DVT but with SEVERE right popliteal vein with no filling defects. She underwent an iliac venous IVUS with iliac vein compressio n syndrome requiring stent placement to her right leg. compressio n stocking trial, keep BLE elevated while sitting Tachycardia 9041813 R00. 0 Resolved with metoprolol . 39241 Luis A Hernandez MD [facility] [place] [address] 03/16/2019 14:27:27 03/16/2019 15:53:01 Cellulitis 596693951 L03.90 Resolved after course of antibiotic s. Iliac vein compression syndrome 065042758 I87.1 Had Venous Duplex 04/29/18 : Negative left-sided venous study. Severe right popliteal vein reflux with no filling defects. She underwent an iliac venous IVUS with iliac vein compressio n syndrome requiring stent placement to her right leg. She finished eliquis and is on ASA 325mg daily. Congestive heart failure 14026767 I50.9 04/29/18 ECHO: LV chamber size is normal. There is normal global systolic function and contractil ity. There is moderate tricuspid regurgitat ion. Estimated RVSP is 58 mmHg. Continue with Lasix. Dyslipidemia 408997183 E 78.5 Needs to keep LDL less than 100, and HDL more than 40. No known DM, CAD or diabetes mellitus. LDL 134. Consider statin therapy. teo had made diet modificati ons Deep venou s thrombosis 367430207 I82.409 Finished Eliquis. On ASA 325mg daily. Edema of l ower extremity 222758871 R60.0 On Lasix, will decrease to 60 mg po qd Venous ins ufficiency of leg 133243407 I87.2 She underwent a venous duplex revealing no evidence of DVT but with SEVERE right popliteal vein with no filling defects. She underwent an iliac venous IVUS with iliac vein compressio n syndrome requiring stent placement to her right leg. compressio n stocking trial, keep BLE elevated while sitting Tachycardia 9714688 R00. 0 Resolved with metoprolol . Obstructiv e sleep apnea syndrome 29884760 G47.33 Home sleep studyHe has leg swelling, fatigue, and snoring [id number] Luis A Hernandez MD [facility] [address] [place] [address] 08/31/2019 14:07:54 08/31/2019 14:46:39 Cellulitis 767751170 L03.90 Resolved after course of antibiotic s. Iliac vein compression syndrome 241578857 I87.1 Had Venous Duplex 04/29/18 : Negative left-sided venous study. Severe right popliteal vein reflux with no filling defects. She underwent an iliac venous IVUS with iliac vein compressio n syndrome requiring stent placement to her right leg. She finished eliquis and is on ASA 325mg daily. Congestive heart failure 36822120 I50.9 04/29/18 ECHO: LV chamber size is normal. There is normal global systolic function and contractil ity. There is moderate tricuspid regurgitat ion. Estimated RVSP is 58 mmHg. Continue with Lasix. Dyslipidemia 685757631 E 78.5 Needs to keep LDL less than 100, and HDL more than 40. No known DM, CAD or diabetes mellitus. LDL 134. Consider statin therapy. teo had made diet modificati ons Deep venou s thrombosis 520290204 I82.409 Finished Eliquis. On ASA 325mg daily. Edema of l ower extremity 797297479 R60.0 On Lasix, much better Venous ins ufficiency of leg 831918488 I87.2 She underwent a venous duplex revealing no evidence of DVT but with SEVERE right popliteal vein with no filling defects. She underwent an iliac venous IVUS with iliac vein compressio n syndrome requiring stent placement to her right leg. compressio n stocking trial, keep BLE elevated while sitting Tachycardia 7146311 R00. 0 Resolved with metoprolol . Obstructiv e sleep apnea syndrome 25591661 G47.33 Home sleep studyHe has leg swelling, fatigue, and snoring 13340 Luis A Hernandez MD [facility] [address] [place], [place] [phone] 11/30/2019 14:17:15 11/30/2019 15:27:48 Iliac vein compression syndrome 443632197 I87.1 Venous Duplex 04/29/2018 : Negative left-sided venous study. Severe right popliteal vein reflux with no filling defects. She underwent an iliac venous IVUS with iliac vein compressio n syndrome requiring stent placement to her right leg. She finished Eliquis and is on ASA 325mg daily. Will repeat venous duplex. Congestive heart failure 16403702 I50.9 Echo 03/04/2019: LV systolic function is normal, estimated at 55-60%. There is mildly increased LV wall thickness. The LV diastolic function is grade II diastolic dysfunctio n. There is mild tricuspid valve regurgitat ion. Moderate pulmonary HTN, estimated pulmonary arterial systolic pressure is 59 mmHg. Continue with Lasix, ARB, and BB. Dyslipidemia 812643473 E 78.5 Needs to keep LDL less than 100, and HDL more than 40. 04/21/2018 LDL 134 Not on statin or other lipid therapy Will get fasting lipids for follow-up prior to discussing starting medication Deep venou s thrombosis 726176130 I82.409 ResolvedFi reyna Isabellafatoumatamercedes, on ASA 325mg daily. Edema of l ower extremity 504658914 R60.0 Improved with Lasix Tachycardia 8534914 R00. 0 Resolved with metoprolol Obstructiv e sleep apnea syndrome 27148363 G47.33 Compliant with nightly CPAP use 00126 Luis A Hernandez MD [facility] [place] [address] 05/30/2020 14:33:20 05/30/2020 15:19:51 Iliac vein compression syndrome 927699966 I87.1 Venous Duplex 04/29/2018 : Negative left-sided venous study. Severe right popliteal vein reflux with no filling defects. She underwent an iliac venous IVUS with iliac vein compressio n syndrome requiring stent placement to her right leg. Venous reflux 01/26/2020 : No significan t reflux disease noted. Contine full dose ASA Congestive heart failure 57969413 I50.9 Seems to be well compensate d, appears euvolemic. Echo 03/04/2019: LV systolic function is normal, estimated at 55-60%. There is mildly increased LV wall thickness. The LV diastolic function is grade II diastolic dysfunctio n. There is mild tricuspid valve regurgitat ion. Moderate pulmonary HTN, estimated pulmonary arterial systolic pressure is 59 mmHg. Continue with Lasix, ARB, and BB. Dyslipidemia 607350613 E 78.5 Needs to keep LDL less than 100, and HDL more than 40. 12/09/2019 LDL 103 Not on statin or other lipid therapy; continue diet and lifestyle modificati ons Will get fasting lipids for follow-up and consider adding statin if LDL does not further improve Deep venou s thrombosis 193900856 I82.409 ResolvedCo ntinue full dose ASA daily Edema of l ower extremity 123662004 R60.0 Resolved with LasixOkay to decrease Lasix to 40mg once daily with extra 20mg (1/2 tablet) as needed Tachycardia 7427474 R00. 0 Resolved with metoprolol Obstructiv e sleep apnea syndrome 59866679 G47.33 Now using oral device per pulmonary d/t CPAP intoleranc e 11908 Luis A Hernandez MD [place] [facility] [place] [address] 12/06/2020 15:27:04 12/06/2020 16:03:22 Congestive heart failure 66776393 I50.9 Seems to be well compensate d, appears euvolemic. Echo 03/04/2019: LV systolic function is normal, estimated at 55-60%. There is mildly increased LV wall thickness. The LV diastolic function is grade II diastolic dysfunctio n. There is mild tricuspid valve regurgitat ion. Moderate pulmonary HTN, estimated pulmonary arterial systolic pressure is 59 mmHg. Continue with Lasix, ARB, and BB.Obtain echo to evaluate for structural /functiona l disease. Dyslipidemia 120645105 E 78.5 Needs to keep LDL less than 100, and HDL more than 40. 12/09/2019 LDL 103 Not on statin or other lipid therapy; continue diet and lifestyle modificati ons Will get fasting lipids for follow-up and consider adding statin if LDL does not further improve Edema of l ower extremity 065987594 R60.0 Resolved with LasixOkay to decrease Lasix to 40mg once daily with extra 20mg (1/2 tablet) as needed [id number] Luis A Hernandez MD [place] [facility] [place] [address] 06/06/2021 13:54:17 06/06/2021 14:35:00 Congestive heart failure 84049114 I50.9 Seems to be well compensate d, appears euvolemic Continue with Lasix, ARB, and BB.Obtain echo to evaluate for structural /functiona l disease. Dyslipidemia 625171925 E 78.5 Needs to keep LDL less than 100, and HDL more than 40. 12/09/2019 LDL 103 Not on statin or other lipid therapy; continue diet and lifestyle modificati ons Will get fasting lipids for follow-up and consider adding statin if LDL does not further improve Edema of l ower extremity 929634394 R60.0 Resolved with LasixOkay to decrease Lasix to 40mg once daily with extra 20mg (1/2 tablet) as needed [id number] Luis A Hernandez MD [place] [facility] [place] [address] 12/05/2021 11:47:39 12/05/2021 13:18:34 Congestive heart failure 82985850 I50.9 Seems to be well compensate d, appears euvolemic Continue with Lasix, ARB, and BB. ECHO 12/20/20:L V chamber size is normal,the re is normal global systolic function and contractil ity,the estimated LVEF is 55-60%,the re is mild tricuspid regurgitat ion. Dyslipidemia 995990288 E 78.5 Needs to keep LDL less than 100, and HDL more than 40. 12/09/2019 LDL 103 Not on statin or other lipid therapy; continue diet and lifestyle modificati ons Will get fasting lipids for follow-up and consider adding statin if LDL does not further improve Edema of l ower extremity 925974220 R60.0 Resolved with LasixOkay to decrease Lasix to 40mg once daily with extra 20mg (1/2 tablet) as needed [id number] Luis A Hernandez MD [place] [facility] [address] [place] [address] 01/30/2022 15:19:35 01/30/2022 15:58:42 Congestive heart failure 50049559 I50.9 Seems to be well compensate d, appears euvolemic Continue with Lasix, ARB, and BB. ECHO 12/20/20:L V chamber size is normal,the re is normal global systolic function and contractil ity,the estimated LVEF is 55-60%,the re is mild tricuspid regurgitat ion. Dyslipidemia 519591287 E 78.5 Needs to keep LDL less than 100, and HDL more than 40. 12/09/2019 LDL 103 Not on statin or other lipid therapy; continue diet and lifestyle modificati ons Will get fasting lipids for follow-up and consider adding statin if LDL does not further improve Edema of l ower extremity 366410626 R60.0 Resolved with Lasix Pulmonary hypertension 56022537 I27.20 Obtain echo to evaluate for structural /functiona l disease.Pu lmonary rehab Obstructiv e sleep apnea syndrome 96787699 G47.33 Now using oral device per pulmonary d/t CPAP intoleranc e [id number] Luis A Hernandez MD [place] [facility] [address] [place] [address] 06/05/2022 12:10:44 06/05/2022 13:29:40 Congestive heart failure 77744501 I50.9 Seems to be well compensate d, appears euvolemic Continue with Lasix, ARB, and BB. ECHO 12/20/20:L V chamber size is normal,the re is normal global systolic function and contractil ity,the estimated LVEF is 55-60%,the re is mild tricuspid regurgitat ion. Dyslipidemia 551302539 E 78.5 Needs to keep LDL less than 100, and HDL more than 40. 12/09/2019 LDL 103 Not on statin or other lipid therapy; continue diet and lifestyle modificati ons Will get fasting lipids for follow-up and consider adding statin if LDL does not further improve Edema of l ower extremity 702605941 R60.0 Resolved with Lasix Pulmonary hypertension 62157130 I27.20 SPAP of 55 Obstructiv e sleep apnea syndrome 78157713 G47.33 Now using oral device per pulmonary d/t CPAP intoleranc e 25261 Luis A Hernandez MD [place] [facility] [address] [place] [address] 12/27/2022 10:47:27 12/27/2022 12:04:33 Congestive heart failure 65847214 I50.9 Seems to be well compensate d, appears euvolemic Continue with Lasix, ARB, and BB. ECHO 12/20/20:L V chamber size is normal,the re is normal global systolic function and contractil ity,the estimated LVEF is 55-60%,the re is mild tricuspid regurgitat ion. Dyslipidemia 931103484 E 78.5 Needs to keep LDL less than 100, and HDL more than 40.*Last LDL was 75 done on 12/17/21.P t dose not takes any statins. Edema of l ower extremity 827050550 R60.0 Resolved with Lasix Pulmonary hypertension 24435764 I27.20 SPAP of 55 Obstructiv e sleep apnea syndrome 91534537 G47.33 Now using oral device per pulmonary d/t CPAP intoleranc e Diastolic heart failure 361330000 I50.30 Paroxysmal atrial fibrillation 078654812 I48.0 continue with metop 12.5 mgcontinue with full aspirin for nowshe MISA score of 2 Essential hypertension 64916469 I10 well controlled today [id number] Luis A Hernandez MD [place] [facility] [address] [place] [address] 05/21/2023 10:53:27 05/21/2023 11:28:33 Congestive heart failure 33806237 I50.9 Seems to be well compensate d, appears euvolemic Continue with Lasix, ARB, and BB. ECHO 12/20/20:L V chamber size is normal,the re is normal global systolic function and contractil ity,the estimated LVEF is 55-60%,the re is mild tricuspid regurgitat ion. Dyslipidemia 589745173 E 78.5 Needs to keep LDL less than 100, and HDL more than 40.*Last LDL was 75 done on 12/17/21.P t dose not takes any statins. Edema of l ower extremity 274449239 R60.0 Resolved with Lasix Pulmonary hypertension 37926203 I27.20 SPAP of 55 Obstructiv e sleep apnea syndrome 40760771 G47.33 Now using oral device per pulmonary d/t CPAP intoleranc e Diastolic heart failure 025625462 I50.30 Paroxysmal atrial fibrillation 447195302 I48.0 continue with metop 12.5 mgcontinue with full aspirin for nowshe MISA score of 2 Essential hypertension 80188228 I10 well controlled today [id number] Luis A Hernandez MD [place] [facility] [address] [place] [address] 12/17/2023 17:02:11 12/17/2023 18:27:48 Congestive heart failure 13850286 I50.9 Seems to be well compensate d, appears euvolemic Continue with Lasix, ARB, and BB. ECHO 12/20/20:L V chamber size is normal,the re is normal global systolic function and contractil ity,the estimated LVEF is 55-60%,the re is mild tricuspid regurgitat ion. Dyslipidemia 223414472 E 78.5 Needs to keep LDL less than 100, and HDL more than 40.*Last LDL was 75 done on 12/17/21.P t dose not takes any statins. Edema of l ower extremity 581044957 R60.0 Resolved with Lasix Pulmonary hypertension 82659116 I27.20 SPAP of 55 Obstructiv e sleep apnea syndrome 93473476 G47.33 Now using oral device per pulmonary d/t CPAP intoleranc e Diastolic heart failure 199464203 I50.30 Paroxysmal atrial fibrillation 261060431 I48.0 continue with metop 12.5 mgcontinue with full aspirin for nowshe MISA score of 2 Essential hypertension 80550067 I10 well controlled today [id number] Luis A Hernandez MD [facility] [address] [place] [address] 06/23/2024 10:45:29 06/23/2024 11:41:36 Congestive heart failure 89920222 I50.9 Seems to be well compensate d, appears euvolemic Continue with Lasix, ARB, and BB. ECHO 12/20/20:L V chamber size is normal,the re is normal global systolic function and contractil ity,the estimated LVEF is 55-60%,the re is mild tricuspid regurgitat ion. Obtain echo to evaluate for structural /functiona l disease. Dyslipidemia 090651761 E 78.5 Needs to keep LDL less than 100, and HDL more than 40.*Last LDL was 75 done on 12/17/21.P t dose not takes any statins. Edema of l ower extremity 945400106 R60.0 Resolved with Lasix Pulmonary hypertension 01568735 I27.20 SPAP of 55Obtain echo to evaluate for structural /functiona l disease. Obstructiv e sleep apnea syndrome 04965416 G47.33 Now using oral device per pulmonary d/t CPAP intoleranc e Diastolic heart failure 023939812 I50.30 Paroxysmal atrial fibrillation 911833275 I48.0 continue with metop 12.5 mgcontinue with full aspirin for nowshe MISA score of 2 Essential hypertension 57544170 I10 well controlled today Health Concerns Section Related Observation LastModified by Organization Detai ls LastModified Time None Recorded Concern Status LastModified by Organization Details LastModified Time None Recorded Advance Directives Directive None Recorded Payers Insurance Date Sequence Insurance Name Policy Number Policy Mendez Covered Member ID Mendez Member ID Guarantor Name 05/20/2023 1 [employer] (POS) [id number] Lucitaajay Vallejo [id number] Lucitaajay Vallejo 07/04/2024 1 [place] Lucitaajay Vallejo [id number] Lucitaajay Vallejo 05/20/2023 2 [facility] (MEDICARE REPLACEMENT/ ADVANTAGE - PPO) Lucita Vallejo [id number] Lucitaajay Vallejo 07/04/2024 2 [facility] (MEDICARE SUPPLEMENT) Lucita Vallejo [id number] Lucita Vallejo Notes Date Note Type Note Provider Name and Address Organization Details Recorded Time 3 text/html 06/05/22CC : Cardiac follow up , dyspnea on [id number]-pyz white women with a PMH of bilateral DVT, CHF, S/p stent of the right iliac vein stent, dyslipidemia, and obesity presents today for 6 month follow up. She was last seen in the clinic on 01/30/22, since then she has JESSEE, and now on Cpap.She denies ER visits and hospitalizations since she was last seen. Denies chest pain.Denies shortness of breath at rest. Has mild dyspnea on exertion.No orthopnea. No PNDs.Denies heart palpitations.Denies dizziness. Denies syncope or near syncope.No ankle or leg edema.No major bleeding events.No reported side effects from medications. Taking medications as prescribed with no missed doses.Denies snoring, daytime somnolence and AM headache.*Last LDL was 75 done on 12/17/21.Pt dose not takes any statins. Previously:She has occasional dyspnea on exertion. He has asthma as well. She had more Shortness of breath Her lower extremity edema has resolved on Lasix 60mg daily. She was in [facility] in 03/04/19 because of shortness of breath and CHF. *Had ECHO done in 03/04/19 showed EF 55-60% , LV diastolic function is grade I diastolic dysfunction , mild tricuspid valve regurgitation. Moderate pulmonary HTN, estimated pulmonary arterial systolic pressure is 59 mmHg. *Had venous doppler done in 03/03/19 showed Persistent right popliteal, posterior tibial DVT, interval improvement. Normalization of left peroneal vein .Results from this visit, or from the past:12/09/19: TC 181, TG 66, HDL 63, LDL 3362612/09/19: NA 140, K 3.9, CH 99, CO2 35, GL 96, BUN 12, CR 0.77, CA 9.1, AST 15, ALT 11, ALP : CK 34BMP 03/08/2019 NA 137 K 3.4 CH 94 CO2 38 BUN 26 CR 1.00 GL 82 CA 8.5 MG 2.CBC 03/08/2019 WBC 9.9 RBC 5.64 HGB 15.5 HCT 52.2 PLT : HB 13.7, HT 43.0 CBC 03/08/2019 WBC 9.9 RBC 5.64 HGB 15.5 HCT 52.2 PLT Glucose 106,BUN 12,Creati 0.95,Na 139,K 3.9,Cl 97,CO2 36,Ca 9.1 PT 10.2,INR 1.003: PT 10.2, INR 1.003: Na 139, K 3.9, CL 97 ,CO2 36, GLU 106, BUN 12, CR 0.95 ,05/09/18: HB 14.5, HT 45.302: Na 141 , K 4.4 ,CL 98 ,CO2 36 , GLU 106 ,BUN 12 ,CR 0.78, AST 14, ALT 14, CK : TC 214 ,TG 100 ,HDL 59 ,LDL 98119: NA 139, K 4.4, CL 91, CO2 >40, GLU 105, BUN 15, CR 0.: HB 14.8, HT 51.010 EKG: Atrial rhythm- occasional ectopic ventricular beat. Inferior - lateral infarct, age undetermined. Superior axis- may be secondary to infarct. Negative T 08/31/19 EKG: Sinus rhythm, low voltage in precordial leads. Nonspecific T- AbnormalityEKG 03/16/2019 Sinus rhythm-occasional PAC. #PACs=1. Left atrial enlargementEKG, 10/14/18: Anteroseptal mi, age undetermined. Prob old lateral NC. muEKG, 10/14/18: Anteroseptal mi, age undetermined. Prob old lateral NC. muEcho 03/04/2019 LVSF is normal, estimated at 55-60%. There is mildly increased LV wall thicknesss. The LV diastolic function is grade I diastolic dysfunction. There is mild tricuspid valve regurgitation. Moderate pulmonary HTN, estimated pulmonary arterial systolic pressure is 59 mmHg.US, doppler, venous [id number] doppler 07/08/2018 No significant reflux disease notedCTA chest 03/04/2019 No pulmonary emboli. Cardiomegaly, mildly dilated central pulmonary arteries. Scattered bibasilar atelectasis. Mild juusnukhm25/01/20 VENOUS REFLUX: No significant reflux disease noted.Venous doppler 03/03/2019 Persistent right popliteal, posterior tibial DVT, interval improvement. Normalization of left peroneal veinXR chest 03/03/2019 Mild bilateral perihilar airspace opacities, likely atelectasis. CardiomegalyAngiogram (PROC) [id number] compression disease of the right external iliac vein, treated with Wallstent placement, Wallstent 16x60 mm with excellent results. She will need to stay on anticoagulation for about one month.11/12/17 US VENOUS: Positive for bilateral DVT, Moderate clot burden on the right and small on left.11/11/17 CHEST 2 VIEW: Congestive changes, possible mild CHF exacerbation.12/17/17 MESFIN DUP- Negative bilateral venous study.04/29/18 ECHO: LV chamber size is normal. There is normal global systolic function and contractility. There is moderate tricuspid regurgitation. Estimated RVSP is 58 mmHg. Luis A Hernandez MD [address] [place], [address], [facility] 06/05/2022 13:21:52 3 text/html 12/27/22CC : Cardiac follow up dyspnea on svyfdnzx23-obhic-xvn white women with a PMH of bilateral DVT, CHF, S/p stent of the right iliac vein stent, COPD on oxygen at night , pulmonary hypertension, dyslipidemia, and obesity presents today for 6 month follow up. She was last seen in the clinic on 06/05/22, since then she is doing well. She denied chest pain but she is still dyspnea on exertion and she is on oxygen at night and with walking. *Last LDL was 75 done on 12/17/21.Pt dose not takes any statins. She denies ER visits and hospitalizations since she was last seen. Denies chest pain.Denies shortness of breath at rest. Has mild dyspnea on exertion.No orthopnea. No PNDs.Denies heart palpitations.Denies dizziness. Denies syncope or near syncope.No ankle or leg edema.No major bleeding events.No reported side effects from medications. Taking medications as prescribed with no missed doses.Denies snoring, daytime somnolence and AM headache.*Last LDL was 75 done on 12/17/21.Pt dose not takes any statins. Previously:*She has JESSEE, and now on Cpap. She has occasional dyspnea on exertion. He has asthma as well. She had more Shortness of breath Her lower extremity edema has resolved on Lasix 60mg daily. She was in [facility] in 03/04/19 because of shortness of breath and CHF. *Had ECHO done in 03/04/19 showed EF 55-60% , LV diastolic function is grade I diastolic dysfunction , mild tricuspid valve regurgitation. Moderate pulmonary HTN, estimated pulmonary arterial systolic pressure is 59 mmHg. *Had venous doppler done in 03/03/19 showed Persistent right popliteal, posterior tibial DVT, interval improvement. Normalization of left peroneal vein .Results from this visit, or from the past:12/09/19: TC 181, TG 66, HDL 63, LDL 2278012/09/19: NA 140, K 3.9, CH 99, CO2 35, GL 96, BUN 12, CR 0.77, CA 9.1, AST 15, ALT 11, ALP : CK 34BMP 03/08/2019 NA 137 K 3.4 CH 94 CO2 38 BUN 26 CR 1.00 GL 82 CA 8.5 MG 2.CBC 03/08/2019 WBC 9.9 RBC 5.64 HGB 15.5 HCT 52.2 PLT : HB 13.7, HT 43.0 CBC 03/08/2019 WBC 9.9 RBC 5.64 HGB 15.5 HCT 52.2 PLT Glucose 106,BUN 12,Creati 0.95,Na 139,K 3.9,Cl 97,CO2 36,Ca 9.1 PT 10.2,INR 1.003: PT 10.2, INR 1.003: Na 139, K 3.9, CL 97 ,CO2 36, GLU 106, BUN 12, CR 0.95 ,05/09/18: HB 14.5, HT 45.302: Na 141 , K 4.4 ,CL 98 ,CO2 36 , GLU 106 ,BUN 12 ,CR 0.78, AST 14, ALT 14, CK : TC 214 ,TG 100 ,HDL 59 ,LDL 04597/: NA 139, K 4.4, CL 91, CO2 >40, GLU 105, BUN 15, CR 0.: HB 14.8, HT 51.010 EKG: Atrial rhythm- occasional ectopic ventricular beat. Inferior - lateral infarct, age undetermined. Superior axis- may be secondary to infarct. Negative T 08/31/19 EKG: Sinus rhythm, low voltage in precordial leads. Nonspecific T- AbnormalityEKG 03/16/2019 Sinus rhythm-occasional PAC. #PACs=1. Left atrial enlargementEKG, 10/14/18: Anteroseptal mi, age undetermined. Prob old lateral NC. muEKG, 10/14/18: Anteroseptal mi, age undetermined. Prob old lateral NC. muEcho 03/04/2019 LVSF is normal, estimated at 55-60%. There is mildly increased LV wall thicknesss. The LV diastolic function is grade I diastolic dysfunction. There is mild tricuspid valve regurgitation. Moderate pulmonary HTN, estimated pulmonary arterial systolic pressure is 59 mmHg.US, doppler, venous [id number] doppler 07/08/2018 No significant reflux disease notedCTA chest 03/04/2019 No pulmonary emboli. Cardiomegaly, mildly dilated central pulmonary arteries. Scattered bibasilar atelectasis. Mild jwqgotesx40/01/20 VENOUS REFLUX: No significant reflux disease noted.Venous doppler 03/03/2019 Persistent right popliteal, posterior tibial DVT, interval improvement. Normalization of left peroneal veinXR chest 03/03/2019 Mild bilateral perihilar airspace opacities, likely atelectasis. 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 She will need to stay on anticoagulation for about one month.11/12/17 US VENOUS: Positive for bilateral DVT, Moderate clot burden on the right and small on left.11/11/17 CHEST 2 VIEW: Congestive changes, possible mild CHF exacerbation.12/17/17 MESFIN DUP- Negative bilateral venous study.04/29/18 ECHO: LV chamber size is normal. There is normal global systolic function and contractility. There is moderate tricuspid regurgitation. Estimated RVSP is 58 mmHg. [facility] - [facility] 12/27/2022 11:44:34 4 text/html 04/01/23CC : Cardiac follow [id number] white women with a PMH of bilateral DVT, CHF, S/p stent of the right iliac vein stent, COPD on oxygen at night , pulmonary hypertension, dyslipidemia, and obesity presents today for 3 month follow up. She was last seen in the clinic on 12/27/22, since then she is doing well, still needs O2 with exertionShe denies ER visits and hospitalizations since she was last seen. Today reports:Denies chest pain.Denies shortness of breath at rest. Has mild dyspnea on exertion.No orthopnea. No PNDs.Denies heart palpitations.Denies dizziness. Denies syncope or near syncope.No ankle or leg edema.No major bleeding events.No reported side effects from medications. Taking medications as prescribed with no missed doses.Denies snoring, daytime somnolence and AM headache.*Last LDL was 75 done on 12/17/21.Pt dose not takes any statins. Previously: She is still dyspnea on exertion and she is on oxygen at night and with walking. *She has JESSEE, and now on Cpap. She has occasional dyspnea on exertion. He has asthma as well. She had more Shortness of breath Her lower extremity edema has resolved on Lasix 60mg daily. She was in [facility] in 03/04/19 because of shortness of breath and CHF. *Had ECHO done in 03/04/19 showed EF 55-60% , LV diastolic function is grade I diastolic dysfunction , mild tricuspid valve regurgitation. Moderate pulmonary HTN, estimated pulmonary arterial systolic pressure is 59 mmHg. *Had venous doppler done in 03/03/19 showed Persistent right popliteal, posterior tibial DVT, interval improvement. Normalization of left peroneal vein .Results from this visit, or from the past:12/09/19: TC 181, TG 66, HDL 63, LDL 1707912/09/19: NA 140, K 3.9, CH 99, CO2 35, GL 96, BUN 12, CR 0.77, CA 9.1, AST 15, ALT 11, ALP : CK 34BMP 03/08/2019 NA 137 K 3.4 CH 94 CO2 38 BUN 26 CR 1.00 GL 82 CA 8.5 MG 2.CBC 03/08/2019 WBC 9.9 RBC 5.64 HGB 15.5 HCT 52.2 PLT : HB 13.7, HT 43.0 CBC 03/08/2019 WBC 9.9 RBC 5.64 HGB 15.5 HCT 52.2 PLT Glucose 106,BUN 12,Creati 0.95,Na 139,K 3.9,Cl 97,CO2 36,Ca 9.1 PT 10.2,INR 1.003: PT 10.2, INR 1.003: Na 139, K 3.9, CL 97 ,CO2 36, GLU 106, BUN 12, CR 0.95 ,05/09/18: HB 14.5, HT 45.302: Na 141 , K 4.4 ,CL 98 ,CO2 36 , GLU 106 ,BUN 12 ,CR 0.78, AST 14, ALT 14, CK : TC 214 ,TG 100 ,HDL 59 ,LDL 52786: NA 139, K 4.4, CL 91, CO2 >40, GLU 105, BUN 15, CR 0.: HB 14.8, HT 51.010 EKG: Atrial rhythm- occasional ectopic ventricular beat. Inferior - lateral infarct, age undetermined. Superior axis- may be secondary to infarct. Negative T 08/31/19 EKG: Sinus rhythm, low voltage in precordial leads. Nonspecific T- AbnormalityEKG 03/16/2019 Sinus rhythm-occasional PAC. #PACs=1. Left atrial enlargementEKG, 10/14/18: Anteroseptal mi, age undetermined. Prob old lateral NC. muEKG, 10/14/18: Anteroseptal mi, age undetermined. Prob old lateral NC. muEcho 03/04/2019 LVSF is normal, estimated at 55-60%. There is mildly increased LV wall thicknesss. The LV diastolic function is grade I diastolic dysfunction. There is mild tricuspid valve regurgitation. Moderate pulmonary HTN, estimated pulmonary arterial systolic pressure is 59 mmHg.US, doppler, venous [id number] doppler 07/08/2018 No significant reflux disease notedCTA chest 03/04/2019 No pulmonary emboli. Cardiomegaly, mildly dilated central pulmonary arteries. Scattered bibasilar atelectasis. Mild kgwfxwyki32/01/20 VENOUS REFLUX: No significant reflux disease noted.Venous doppler 03/03/2019 Persistent right popliteal, posterior tibial DVT, interval improvement. Normalization of left peroneal veinXR chest 03/03/2019 Mild bilateral perihilar airspace opacities, likely atelectasis. 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 She will need to stay on anticoagulation for about one month.11/12/17 US VENOUS: Positive for bilateral DVT, Moderate clot burden on the right and small on left.11/11/17 CHEST 2 VIEW: Congestive changes, possible mild CHF exacerbation.12/17/17 MESFIN DUP- Negative bilateral venous study.04/29/18 ECHO: LV chamber size is normal. There is normal global systolic function and contractility. There is moderate tricuspid regurgitation. Estimated RVSP is 58 mmHg. Luis A Hernandez MD [address] [place], [address], [facility] 05/21/2023 11:25:24 4 text/html 12/17/23CC : Cardiac follow [id number]-zmy white women with a PMH of bilateral DVT, CHF, S/p stent of the right iliac vein stent, COPD on oxygen at night , pulmonary hypertension, dyslipidemia, and obesity presents today for 6 month follow up. She was last seen in the clinic on 05/21/23, since then she is dong wellShe denies ER visits and hospitalizations since she was last seen. Denies chest pain.Denies shortness of breath at rest. Has mild dyspnea on exertion.No orthopnea. No PNDs.Denies heart palpitations.Denies dizziness. Denies syncope or near syncope.No ankle or leg edema.No major bleeding events.No reported side effects from medications. Taking medications as prescribed with no missed doses.Denies snoring, daytime somnolence and AM headache.*Last LDL was 75 done on 12/17/21.Pt dose not takes any statins. Previously:She is still dyspnea on exertion and she is on oxygen at night and with walking. *She has JESSEE, and now on Cpap. She has occasional dyspnea on exertion. He has asthma as well. She had more Shortness of breath Her lower extremity edema has resolved on Lasix 60mg daily. She was in [facility] in 03/04/19 because of shortness of breath and CHF. *Had ECHO done in 03/04/19 showed EF 55-60% , LV diastolic function is grade I diastolic dysfunction , mild tricuspid valve regurgitation. Moderate pulmonary HTN, estimated pulmonary arterial systolic pressure is 59 mmHg. *Had venous doppler done in 03/03/19 showed Persistent right popliteal, posterior tibial DVT, interval improvement. Normalization of left peroneal vein .Results from this visit, or from the past:12/09/19: TC 181, TG 66, HDL 63, LDL 7079012/09/19: NA 140, K 3.9, CH 99, CO2 35, GL 96, BUN 12, CR 0.77, CA 9.1, AST 15, ALT 11, ALP : CK 34BMP 03/08/2019 NA 137 K 3.4 CH 94 CO2 38 BUN 26 CR 1.00 GL 82 CA 8.5 MG 2.CBC 03/08/2019 WBC 9.9 RBC 5.64 HGB 15.5 HCT 52.2 PLT : HB 13.7, HT 43.0 CBC 03/08/2019 WBC 9.9 RBC 5.64 HGB 15.5 HCT 52.2 PLT Glucose 106,BUN 12,Creati 0.95,Na 139,K 3.9,Cl 97,CO2 36,Ca 9.1 PT 10.2,INR 1.003: PT 10.2, INR 1.003: Na 139, K 3.9, CL 97 ,CO2 36, GLU 106, BUN 12, CR 0.95 ,05/09/18: HB 14.5, HT 45.: Na 141 , K 4.4 ,CL 98 ,CO2 36 , GLU 106 ,BUN 12 ,CR 0.78, AST 14, ALT 14, CK : TC 214 ,TG 100 ,HDL 59 ,LDL 32193/: NA 139, K 4.4, CL 91, CO2 >40, GLU 105, BUN 15, CR 0.: HB 14.8, HT 51.010 EKG: Atrial rhythm- occasional ectopic ventricular beat. Inferior - lateral infarct, age undetermined. Superior axis- may be secondary to infarct. Negative T 08/31/19 EKG: Sinus rhythm, low voltage in precordial leads. Nonspecific T- AbnormalityEKG 03/16/2019 Sinus rhythm-occasional PAC. #PACs=1. Left atrial enlargementEKG, 10/14/18: Anteroseptal mi, age undetermined. Prob old lateral NC. muEKG, 10/14/18: Anteroseptal mi, age undetermined. Prob old lateral NC. muEcho 03/04/2019 LVSF is normal, estimated at 55-60%. There is mildly increased LV wall thicknesss. The LV diastolic function is grade I diastolic dysfunction. There is mild tricuspid valve regurgitation. Moderate pulmonary HTN, estimated pulmonary arterial systolic pressure is 59 mmHg.US, doppler, venous [id number] doppler 07/08/2018 No significant reflux disease notedCTA chest 03/04/2019 No pulmonary emboli. Cardiomegaly, mildly dilated central pulmonary arteries. Scattered bibasilar atelectasis. Mild gdlerhlkx89/01/20 VENOUS REFLUX: No significant reflux disease noted.Venous doppler 03/03/2019 Persistent right popliteal, posterior tibial DVT, interval improvement. Normalization of left peroneal veinXR chest 03/03/2019 Mild bilateral perihilar airspace opacities, likely atelectasis. 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 She will need to stay on anticoagulation for about one month.11/12/17 US VENOUS: Positive for bilateral DVT, Moderate clot burden on the right and small on left.11/11/17 CHEST 2 VIEW: Congestive changes, possible mild CHF exacerbation.12/17/17 MESFIN DUP- Negative bilateral venous study.04/29/18 ECHO: LV chamber size is normal. There is normal global systolic function and contractility. There is moderate tricuspid regurgitation. Estimated RVSP is 58 mmHg. Luis A Hernandez MD [address] [place], [address], [facility] 12/17/2023 18:23:44 5 text/html 06/23/24CC : Cardiac follow up, dyspnea on [id number]-hcbdc-zmu white women with a PMH of bilateral DVT, CHF, S/p stent of the right iliac vein stent, COPD on oxygen at night , pulmonary hypertension, dyslipidemia, and obesity presents today for 6 month follow up. She was last seen in the clinic on 12/17/23, since then she is dong wellShe denies ER visits and hospitalizations since she was last seen. Denies chest pain.Denies shortness of breath at rest. Has mild dyspnea on exertion.No orthopnea. No PNDs.Denies heart palpitations.Denies dizziness. Denies syncope or near syncope.No ankle or leg edema.No major bleeding events.No reported side effects from medications. Taking medications as prescribed with no missed doses.Denies snoring, daytime somnolence and AM headache.*Last LDL was 75 done on 12/17/21.Pt dose not takes any statins. Previously:She is still dyspnea on exertion and she is on oxygen at night and with walking. *She has JESSEE, and now on Cpap. She has occasional dyspnea on exertion. He has asthma as well. She had more Shortness of breath Her lower extremity edema has resolved on Lasix 60mg daily. She was in [facility] in 03/04/19 because of shortness of breath and CHF. *Had ECHO done in 03/04/19 showed EF 55-60% , LV diastolic function is grade I diastolic dysfunction , mild tricuspid valve regurgitation. Moderate pulmonary HTN, estimated pulmonary arterial systolic pressure is 59 mmHg. *Had venous doppler done in 03/03/19 showed Persistent right popliteal, posterior tibial DVT, interval improvement. Normalization of left peroneal vein .Results from this visit, or from the past:12/09/19: TC 181, TG 66, HDL 63, LDL 8346612/09/19: NA 140, K 3.9, CH 99, CO2 35, GL 96, BUN 12, CR 0.77, CA 9.1, AST 15, ALT 11, ALP : CK 34BMP 03/08/2019 NA 137 K 3.4 CH 94 CO2 38 BUN 26 CR 1.00 GL 82 CA 8.5 MG 2.CBC 03/08/2019 WBC 9.9 RBC 5.64 HGB 15.5 HCT 52.2 PLT : HB 13.7, HT 43.0 CBC 03/08/2019 WBC 9.9 RBC 5.64 HGB 15.5 HCT 52.2 PLT Glucose 106,BUN 12,Creati 0.95,Na 139,K 3.9,Cl 97,CO2 36,Ca 9.1 PT 10.2,INR 1.003: PT 10.2, INR 1.003: Na 139, K 3.9, CL 97 ,CO2 36, GLU 106, BUN 12, CR 0.95 ,05/09/18: HB 14.5, HT 45.302: Na 141 , K 4.4 ,CL 98 ,CO2 36 , GLU 106 ,BUN 12 ,CR 0.78, AST 14, ALT 14, CK : TC 214 ,TG 100 ,HDL 59 ,LDL 06608: NA 139, K 4.4, CL 91, CO2 >40, GLU 105, BUN 15, CR 0.: HB 14.8, HT 51.010 EKG: Atrial rhythm- occasional ectopic ventricular beat. Inferior - lateral infarct, age undetermined. Superior axis- may be secondary to infarct. Negative T 08/31/19 EKG: Sinus rhythm, low voltage in precordial leads. Nonspecific T- AbnormalityEKG 03/16/2019 Sinus rhythm-occasional PAC. #PACs=1. Left atrial enlargementEKG, 10/14/18: Anteroseptal mi, age undetermined. Prob old lateral NC. muEKG, 10/14/18: Anteroseptal mi, age undetermined. Prob old lateral NC. muEcho 03/04/2019 LVSF is normal, estimated at 55-60%. There is mildly increased LV wall thicknesss. The LV diastolic function is grade I diastolic dysfunction. There is mild tricuspid valve regurgitation. Moderate pulmonary HTN, estimated pulmonary arterial systolic pressure is 59 mmHg.US, doppler, venous [id number] doppler 07/08/2018 No significant reflux disease notedCTA chest 03/04/2019 No pulmonary emboli. Cardiomegaly, mildly dilated central pulmonary arteries. Scattered bibasilar atelectasis. Mild lgkgsgcit82/01/20 VENOUS REFLUX: No significant reflux disease noted.Venous doppler 03/03/2019 Persistent right popliteal, posterior tibial DVT, interval improvement. Normalization of left peroneal veinXR chest 03/03/2019 Mild bilateral perihilar airspace opacities, likely atelectasis. 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 She will need to stay on anticoagulation for about one month.11/12/17 US VENOUS: Positive for bilateral DVT, Moderate clot burden on the right and small on left.11/11/17 CHEST 2 VIEW: Congestive changes, possible mild CHF exacerbation.12/17/17 MESFIN DUP- Negative bilateral venous study.04/29/18 ECHO: LV chamber size is normal. There is normal global systolic function and contractility. There is moderate tricuspid regurgitation. Estimated RVSP is 58 mmHg. Luis A Hernandez MD [address] [place], [address], [place] [facility] 06/23/2024 11:32:27 OBGyn Episode No OBEpisode recorded.
--- OUTSIDE RECORDS SUMMARY | 2024-08-25 07:05 | XMS_ITS | Encounter Summary ---
Author Organization [facility] Address [address] [place] [address] Phone Care Team Providers Care Shop Fitter Name Role Phone Sreedhar Ortega MD Primary Care Provider [phone] Jacobo Becker MD Unavailable [phone] Bill Ortega MD Unavailable [phone] Bebe Loredo MD Unavailable Luis A Hernandez MD Unavailable [phone] Encounter Details Date Type Department Care Team (Latest Contact Info) Description 12/19/2021 Orders Only [facility] Scanning, Provider [...] on one occasion? Never 12/21/2021 10:27 AM Megna Chavez RN documented as of this encounter Plan of Treatment Not on file documented as of this encounter Procedures Procedure Name Priority Date/Time Associated Diagnosis Comments SCAN - RADIOLOGY/IMAGING 12/18/2021 documented in this encounter Results * SCAN - RADIOLOGY/IMAGING (12/18/2021) Anatomical Region Laterality Modality Other us Provider Scanning Edited Result - Final documented in this encounter Visit Diagnoses Not on filedocumented in this encounter Care Teams Shop Fitter Relationship Specialty Start Date End Date Sreedhar Ortega MD [address] [place] [address] PCP - General Internal Medicine 12/14/21 Jacobo Becker MD [address] [facility] [address] [place] [address] Referring Physician Pulmonary Disease 05/05/22 Bill Ortega MD [address] [facility] [address] [place] [address] Consulting Physician Cardiology 05/05/22 Bebe Loredo MD [address] [facility] [facility] [address] [place] [address] Consulting Physician Sleep Medicine 07/27/22 Luis A Hernandez MD [address] [facility] [place] [address] Consulting Physician Cardiovascular Disease 05/13/24 documented as of this encounter
--- OUTSIDE RECORDS SUMMARY | 2024-08-25 07:05 | XMS_ITS | Encounter Summary ---
Author Organization [facility] Address [address] [place] [address] Phone Care Team Providers Care Hosiery Bagger Name Role Phone Bruce Bush MD Primary Care Provider [phone] Sreedhar Ortega MD Primary Care Provider [phone] Jacobo Becker MD Unavailable [phone] Bill Ortega MD Unavailable [phone] Bebe Loredo MD Unavailable Luis A Hernandez MD Unavailable [phone] Encounter Details Date Type Department Care Team (Latest Contact Info) Description 07/01/2020 Orders Only [facility] Scanning, Provider [...] Procedure Name Priority Date/Time Associated Diagnosis Comments SLEEP LAB/STUDY - RESULT 07/01/2020 documented in this encounter Results * SLEEP LAB/STUDY - RESULT (07/01/2020) us Provider Scanning Final Result documented in this encounter Visit Diagnoses Not on filedocumented in this encounter Care Teams Hosiery Bagger Relationship Specialty Start Date End Date Bruce Bush MD [address] [facility] [place] [address] PCP - General Family Medicine 05/24/17 12/13/21 Sreedhar Ortega MD [address] [place] [address] PCP - General Internal Medicine 12/14/21 Jacobo Becker MD [address] [facility] [address] [place] [address] Referring Physician Pulmonary Disease 05/05/22 Bill Ortega MD [address] [facility] [address] [place] [address] Consulting Physician Cardiology 05/05/22 Bebe Loredo MD [address] [facility] NEUROLOGY SLEEP [facility] [address] [place] [address] Consulting Physician Sleep Medicine 07/27/22 Luis A Hernandez MD [address] [address] [address] Consulting Physician Cardiovascular Disease 05/13/24 documented as of this encounter
--- OUTSIDE RECORDS SUMMARY | 2024-08-25 07:05 | XMS_ITS | Encounter Summary ---
Author Organization [facility] Address [address] [place] [address] Phone Care Team Providers Care Nuclear Fuels Reclamation Engineer Name Role Phone Bruce Bush MD Primary Care Provider [phone] Sreedhar Ortega MD Primary Care Provider [phone] Jacobo Becker MD Unavailable [phone] Bill Ortega MD Unavailable [phone] Bebe Loredo MD Unavailable Luis A Hernandez MD Unavailable [phone] Encounter Details Date Type Department Care Team (Latest Contact Info) Description 12/24/2019 Orders Only [facility] Scanning, Provider [...] Procedure Name Priority Date/Time Associated Diagnosis Comments PULMONARY - RESULT SCAN 12/24/2019 documented in this encounter Results * PULMONARY - RESULT SCAN (12/24/2019) Anatomical Region Laterality Modality Other us Provider Scanning Final Result documented in this encounter Visit Diagnoses Not on filedocumented in this encounter Care Teams Nuclear Fuels Reclamation Engineer Relationship Specialty Start Date End Date Malelolah, Bruce E., MD [address] [facility] [place] [address] PCP - General Family Medicine 05/24/17 12/13/21 Sreedhar Ortega MD [address] [place], [place] [id number] PCP - General Internal Medicine 12/14/21 Jacobo Becker MD [address] [facility] [address] [place] [address] Referring Physician Pulmonary Disease 05/05/22 Bill Ortega MD [address] [facility] [address] [place] [address] Consulting Physician Cardiology 05/05/22 Bebe Loredo MD [address] [facility] NEUROLOGY SLEEP [facility] [address] [place] [address] Consulting Physician Sleep Medicine 07/27/22 Luis A Hernandez MD [address] [facility] [address] [address] Consulting Physician Cardiovascular Disease 05/13/24 documented as of this encounter
--- OUTSIDE RECORDS SUMMARY | 2024-08-25 07:05 | XMS_ITS | Encounter Summary ---
Author Organization [facility] Address [address] [place] [address] Phone Care Team Providers Care Compliance And Control Analyst Name Role Phone Bruce Bush MD Primary Care Provider [phone] Sreedhar Ortega MD Primary Care Provider [phone] Jacobo Becker MD Unavailable [phone] Bill Ortega MD Unavailable [phone] Bebe Loredo MD Unavailable Luis A Hernandez MD Unavailable [phone] Encounter Details Date Type Department Care Team (Latest Contact Info) Description 12/09/2019 Orders Only [facility] Scanning, Provider [...] Date/Time Associated Diagnosis Comments SCAN - LABS 12/09/2019 documented in this encounter Results * SCAN - LABS (12/09/2019) us Provider Scanning Final Result documented in this encounter Visit Diagnoses Not on filedocumented in this encounter Care Teams Compliance And Control Analyst Relationship Specialty Start Date End Date Bruce Bush MD [address] [place] [address] PCP - General Family Medicine 05/24/17 12/13/21 Sreedhar Ortega MD [address] [place] [address] PCP - General Internal Medicine 12/14/21 Jacobo Becker MD [address] [facility] [address] [place] [address] Referring Physician Pulmonary Disease 05/05/22 Bill Ortega MD [address] [facility] [address] [place] [address] Consulting Physician Cardiology 05/05/22 Bebe Loredo MD [address] [facility] NEUROLOGY SLEEP MED, [facility] [address] [place] [address] Consulting Physician Sleep Medicine 07/27/22 Luis A Hernandez MD [address] [facility] [address] [address] Consulting Physician Cardiovascular Disease 05/13/24 documented as of this encounter
--- OUTSIDE RECORDS SUMMARY | 2024-08-25 07:05 | XMS_ITS | Clinical Summary ---
Author Organization [facility] Address [address] [place] [address] Phone Care Team Providers Care Adjunct Psychology Instructor Name Role Phone Bruce Bush MD Primary Care Provider [phone] Allergies Active Allergy Reactions Criticality Noted Date Comments Egg-Derived Products Unknown 02/08/2015 Ibuprofen Swelling 02/08/2015 Penicillin G Rash 02/08/2015 Medications No known medications Family History Medical History Relation Name Comments Hypertension Brother Asthma Father Cancer Father esophageal Hepatitis Father Arrhythmia Mother Breast Cancer Mother Hypertension Mother Osteoarthritis Mother Diabetes Sister Relation Name Status Comments Brother Father Mother Sister Social History Tobacco Use Types Packs/Day Years Used Date Smoking Tobacco: Never Alcohol Use Standard Drinks/Week Comments Yes 0 (1 standard drink = 0.6 oz pur e alcohol) socially Comments Unknown Sex and Gender Information Value Date Recorded Sex Assigned at Not on file Legal Sex Female 9:27 AM CONVENTION MANAGER Gender Identity Not on file Sexual Orientation Not on file Last Filed Vital Signs Vital Sign Reading Time Taken Comments Blood Pressure 141/90 02/15/2015 7:16 AM CONVENTION MANAGER Pulse - - Temperature 36.5 C (97.7 F) 02/15/2015 7:16 AM CONVENTION MANAGER Respiratory Rate 16 02/15/2015 7:16 AM CONVENTION MANAGER Oxygen Saturation 95% 02/15/2015 7:16 AM CONVENTION MANAGER Inhaled Oxygen Concentration - - Weight 91.2 kg (201 lb) 02/08/2015 11:00 AM CONVENTION MANAGER Height 167.6 cm (5' 6) 02/08/2015 11:00 AM CONVENTION MANAGER Body Mass Index 32.44 02/08/2015 11:00 AM CONVENTION MANAGER Plan of Treatment Health Maintenance Due Date Last Done Comments DEXA Bone Density 1955 Hepatitis C Virus (HCV) Screening 1955 TdaP Immunization 1955 Mammogram 1994 Cologuard 02/04/2004 Immunochemical Fecal Occult Blood 02/04/2004 Pneumococcal Immunization (5 0+ years) (1 of 1 - PCV) 02/04/2004 Zoster Immunization (1 of 2) 02/04/2004 Influenza Immunization (#1) 2023 SARS-COV-2 Immunization (2023- season) 2023 Colonoscopy 02/15/2025 02/15/2015 Colorectal Cancer Screening 02/15/2025 Respiratory Syncytial Virus (RSV) Immunization (Adult) (1 - 1-dose 75+ series) 2029 Hepatitis B Immunization Aged Out No longer eligible based on patient's age to complete this topic Meningococcal Immunization (ACWY) Aged Out No longer eligible based on patient's age to complete this topic Rotavirus Immunization Aged Out No lo nger eligible based on patient's age to complete this topic Insurance [facility] Care Teams Adjunct Psychology Instructor Relationship Specialty Start Date End Date Bruce Bush [place] [address] [place] [address] PCP - General Family Medicine 02/14/15
== END 2024-08-25 07:02 | disposition home or self-care (01) ==
LOC: CHSIMG 07:03
PROVIDERS: PCP Internal Medicine; Visit Provider Internal Medicine
DX: Z12.31 Encounter for screening mammogram for malignant neoplasm of breast (principal); Z78.0 Asymptomatic menopausal state; M85.89 Other specified disorders of bone density and structure, multiple sites
CPT/HCPCS: 77063; 77067; 77080

== ENCOUNTER 2024-09-30 13:04 | Outpatient (CLI) | payer MEDICARE, SELFPAY ==
--- OUTSIDE RECORDS SUMMARY | 2024-09-30 13:11 | XMS_ITS | Clinical Summary ---
Author Organization [facility] Address [address] [place] [address] Care Team Providers Care Unit Tender Name Role Phone Unavailable Primary Care Provider Unavailabl e Source Comments [facility],non-owned Affiliates and Associated Physician Practices is amultiple site organization consisting of ambulatory clinics and hospital sitesin [place], [place], [place] and [place]. This disclosure is being madepursuant to the Care Everywhere program and may not contain all information available regarding this patient. Last updated 17.[facility] Allergies Active Allergy Reactions Criticality Noted Date [...] on file Legal Sex Female 2:42 PM SHANK THREADER Gender Identity Not on file Sexual Orientation Not on file Last Filed Vital Signs Vital Sign Reading Time Taken Comments Blood Pressure 126/80 01/19/2019 5:21 PM SHANK THREADER Pulse 84 01/19/2019 5:21 PM SHANK THREADER Temperature 37.4 C (99.3 F) 01/19/2019 5:21 PM SHANK THREADER Respiratory Rate 20 01/19/2019 5:21 PM SHANK THREADER Oxygen Saturation 93% 01/19/2019 5:21 PM SHANK THREADER Inhaled Oxygen Concentration - - Weight 104.3 kg (230 lb) 01/19/2019 5:21 PM SHANK THREADER Height 167.6 cm (5' 6) 01/19/2019 5:21 PM SHANK THREADER Body Mass Index 37.12 01/19/2019 5:21 PM SHANK THREADER Plan of Treatment Health Maintenance Due Date [...] season) 2023 DEPRESSION SCREENING 02/26/2024 INFLUENZA VACCINE (#1) 2024 Respiratory Syncytial Virus (RSV) Vaccine Pt: [...] age to complete this topic Insurance [facility]ICARE [facility] MEDICARE [facility]
--- OUTSIDE RECORDS SUMMARY | 2024-09-30 13:11 | XMS_ITS | Clinical Summary ---
Author Organization [facility] Address [address] [place] [address] Phone Care Team Providers Care Ship Runner Name Role Phone Bruce Bush MD Primary Care Provider [phone] Allergies Active Allergy Reactions Criticality Noted Date [...] on file Legal Sex Female 9:27 AM REAL ESTATE BRANCH MANAGER Gender Identity Not on file Sexual Orientation Not on file Last Filed Vital Signs Vital Sign Reading Time Taken Comments Blood Pressure 141/90 02/15/2015 7:16 AM REAL ESTATE BRANCH MANAGER Pulse - - Temperature 36.5 C (97.7 F) 02/15/2015 7:16 AM REAL ESTATE BRANCH MANAGER Respiratory Rate 16 02/15/2015 7:16 AM REAL ESTATE BRANCH MANAGER Oxygen Saturation 95% 02/15/2015 7:16 AM REAL ESTATE BRANCH MANAGER Inhaled Oxygen Concentration - - Weight 91.2 kg (201 lb) 02/08/2015 11:00 AM REAL ESTATE BRANCH MANAGER Height 167.6 cm (5' 6) 02/08/2015 11:00 AM REAL ESTATE BRANCH MANAGER Body Mass Index 32.44 02/08/2015 11:00 AM REAL ESTATE BRANCH MANAGER Plan of Treatment Health Maintenance Due Date Last Done Comments Hepatitis C Virus (HCV) Screening 1955 TdaP Immunization 1955 Cologuard 1999 Immunochemical Fecal Occult Blood 1999 Pneumococcal Immunization (5 0+ years) (1 of 1 - PCV) 02/04/2004 Zoster Immunization (1 of 2) 02/04/2004 SARS-COV-2 Immunization (1 - 2023- season) 2023 Influenza Immunization (#1) 2024 Colonoscopy 02/15/2025 02/15/2015 Colorectal Cancer Screening 02/15/2025 Respiratory Syncytial Virus (RSV) Immunization (Adult) (1 - 1-dose 75+ series) 2029 Hepatitis B Immunization Aged Out No longer eligible based on patient's age to complete this topic Human Papillomavirus (HPV) Immunization Aged Out No longer eligible b ased on patient's age to complete this topic Meningococcal Immunization (ACWY) Aged Out No longer eligible based on patient's age to complete this topic Rotavirus Immunization Aged Out No lo nger eligible based on patient's age to complete this topic Insurance [facility] Care Teams Ship Runner Relationship Specialty Start Date End Date Bruce Bush MD [address] [place] [address] PCP - General Family Medicine 02/14/15
--- OUTSIDE RECORDS SUMMARY | 2024-09-30 13:11 | XMS_ITS | Encounter Summary ---
Author Organization [facility] Address [address] [place] [address] Phone Care Team Providers Care Quill Stripper Name Role Phone Sreedhar Ortega MD Primary Care Provider [phone] Jacobo Becker MD Unavailable [phone] Bill Ortega MD Unavailable [phone] Bebe Loredo MD Unavailable Luis A Hernandez MD Unavailable [phone] Encounter Details Date Type Department Care [...] on filedocumented in this encounter Care Teams Quill Stripper Relationship Specialty Start Date End Date Sreedhar Ortega MD [address] [place] [address] PCP - General Internal Medicine 12/14/21 Jacobo Becker MD [address] [facility] [address] [place] [address] Referring Physician Pulmonary Disease 05/05/22 Bill Ortega MD [address] [facility] [address] [place] [address] Consulting Physician Cardiology 05/05/22 Bebe Loredo MD [address] [facility] NEUROLOGY SLEEP [facility] [address] [place] [address] Consulting Physician Sleep Medicine 07/27/22 Luis A Hernandez MD [address] [facility] [address] Consulting Physician Cardiovascular Disease 05/13/24 documented as of this encounter
--- OUTSIDE RECORDS SUMMARY | 2024-09-30 13:11 | XMS_ITS | Encounter Summary ---
Author Organization [facility] Address [address] [place] [address] Phone Care Team Providers Care Tools Programmer Name Role Phone Bruce Bush MD Primary Care Provider [phone] Sreedhar Ortega MD Primary Care Provider [phone] Jacobo Becker MD Unavailable [phone] Bill Ortega MD Unavailable [phone] Bebe Loredo MD Unavailable Luis A Hernandez MD Unavailable [phone] Encounter Details Date Type Department Care Team [...] on filedocumented in this encounter Care Teams Tools Programmer Relationship Specialty Start Date End Date Bruce Bush MD [address] [facility] [place] [address] PCP - General Family Medicine 05/24/17 12/13/21 Sreedhar Ortega MD [address] [place], [place] [id number] PCP - General Internal Medicine 12/14/21 Jacobo Becker MD [address] [facility] [address] [place] [address] Referring Physician Pulmonary Disease 05/05/22 Bill Ortega MD [address] [facility] [address] [place] [address] Consulting Physician Cardiology 05/05/22 Bebe Loredo MD [address] [facility] NEUROLOGY SLEEP [facility] [address] [place] [address] Consulting Physician Sleep Medicine 07/27/22 Luis A Hernandez MD [address] [facility] [address] [address] Consulting Physician Cardiovascular Disease 05/13/24 documented as of this encounter
--- OUTSIDE RECORDS SUMMARY | 2024-09-30 13:11 | XMS_ITS | Encounter Summary ---
Author Organization [facility] Address [address] [place] [address] Phone Care Team Providers Care Manager Baby Name Role Phone Bruce Bush MD Primary Care Provider [phone] Sreedhar Ortega MD Primary Care Provider [phone] Jacobo Becker MD Unavailable [phone] Bill Ortega MD Unavailable Bebe Loredo MD Unavailable Luis A Hernandez MD Unavailable [phone] Encounter Details Date Type Department Care Team [...] on filedocumented in this encounter Care Teams Manager Baby Relationship Specialty Start Date End Date Malelolah, Bruce E., MD [address] [facility] [place] [address] PCP - General Family Medicine 05/24/17 12/13/21 Sreedhar Ortega MD [address] [place], [place] [id number] PCP - General Internal Medicine 12/14/21 Jacobo Becker MD [address] [facility] [address] [place] [address] Referring Physician Pulmonary Disease 05/05/22 Bill Ortega MD [address] [facility] [address] [place] [address] Consulting Physician Cardiology 05/05/22 Bebe Loredo MD [address] [facility] NEUROLOGY SLEEP [facility], [facility] [address] [place] [address] Consulting Physician Sleep Medicine 07/27/22 Luis A Hernandez MD [address] [facility] [address] [address] Consulting Physician Cardiovascular Disease 05/13/24 documented as of this encounter
--- OUTSIDE RECORDS SUMMARY | 2024-09-30 13:11 | XMS_ITS | Clinical Summary ---
Author Organization [facility] [address] Address [address] [place] [address] Care Team Providers Care Cookie Breaker Name Role Phone Sreedhar Ortega MD Primary Care Provider [phone] Jacobo Becker MD Unavailable [phone] Bill Ortega MD Unavailable [phone] Bebe Loredo MD Unavailable Luis A Hernandez MD Unavailable [phone] Allergies Active Allergy Reactions Criticality Noted Date Comments Cat Dander Unknown 04/11/2023 Chicken Derived Shortness of breath High 02/08/2015 Patient reports allergy was indicated from a skin test with [employer] when she was young. States she eats [...] 2.5 tablets (25 mg total) by mouth early childhood special educator before breakfast Active furosemide (LASIX) 20 mg tabletIndicatio ns:Edema,hypert ension Take 3 tablets (60 mg total) by mouth early childhood special educator before breakfast 3 10/09/201 8 Active losartan (COZAAR) 25 mg tabletIndicatio ns:hypertension Take 1 tablet (25 mg total) by mouth early childhood special educator before breakfast Active albuterol HFA (PROVENTIL HFA,VENTOLIN HFA,PROAIR HFA) 90 mcg/actuation inhalerIndicati ons:Acute Asthma Attack Inhale 2 puffs every 4 hours Active cholecalciferol , vitamin D3, (VITAMIN D3 ORAL) Take 1 tablet by mouth early childhood special educator before breakfast Active calcium citrate 250 mg calcium tablet tabletIndicatio ns:Hypocalcemia Prevention Take 1 tablet (250 mg total) by mouth early childhood special educator before breakfast Active aspirin 325 mg tabletIndicatio ns:prevention of thrombosis Take 1 tablet (325 mg total) by mouth early childhood special educator before breakfast Active furosemide (LASIX) 40 mg tablet 3 Active metoprolol XL (TOPROL-XL) 25 mg extended release tabletIndicatio ns:hypertension Take 0.5 tablets (12.5 mg total) by mouth early childhood special educator before breakfast 45 tablet 3 3 Active [...] (12/16/2021): Added automatically from request for surgery [id number] 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 11/26 Overview (12/16/2021): Added automatically from request for surgery [id number] Deep vein thrombosis (DVT) 04/27/2018 Pulmonary hypertension Resolved Problems Problem Noted Date Diagnosed Date Resolved Date Lesion of right eyelid 12/16/202104/11 Overview (12/16/2021): Added automatically from request for surgery [id number] Lesion of left eyelid 12/16/20212023 Overview (12/16/2021): Added automatically from request for surgery [id number] Hypoxia 04/11/2023 Immunizations Immunization Administration Dates Next [...] Added aut omatically from request for surgery [id number] Lesion of left eyelid 12/16/2021 Added auto matically from request for surgery [id number] Hypoxia Family History Medical History Relation Name [...] 12/14/2022, 02/14/2022, Additional history exists Influenza Vaccine (#1) 2024 01/22/2023, 2021 DTaP/Tdap/Td Vaccine (2 - Td or Tdap) 12/03/2024 12/03/2014 Pneumococcal vaccine 65+ Completed 10/27/2020, 03/28 Insurance MEDICARE [facility] MEDICARE [facility] MEDICARE [facility] [place] [address] MEDICARE [facility] Care Teams Cookie Breaker Relationship Specialty Start Date End Date Sreedhar Ortega MD [address] [place] [address] PCP - General Internal Medicine 12/14/21 Jacobo Becker MD [address] [place] [address] Referring Physician Pulmonary Disease 05/05/22 Bill Ortega MD 5[address] [facility] [address] [place] [address] Consulting Physician Cardiology 05/05/22 Bebe Loredo MD [address] [place] [address] NEUROLOGY SLEEP MED, [facility] [address] [place] [address] Consulting Physician Sleep Medicine 07/27/22 Luis A Hernandez MD [address] [facility] [place] [address] Consulting Physician Cardiovascular Disease 05/13/24
--- OUTSIDE RECORDS SUMMARY | 2024-09-30 13:11 | XMS_ITS | Encounter Summary ---
Author Organization [facility] Address [address] [place] [address] Phone Care Team Providers Care Director Sports Name Role Phone Bruce Bush MD Primary Care Provider [phone] Sreedhar Ortega MD Primary Care Provider [phone] Jacobo Becker MD Unavailable [phone] Bill Ortega MD Unavailable [phone] Bebe Loredo MD Unavailable Luis A Hernandez MD Unavailable [phone] Encounter Details Date Type Department Care Team [...] on filedocumented in this encounter Care Teams Director Sports Relationship Specialty Start Date End Date Bruce Bush MD [address] [place] [address] PCP - General Family Medicine 05/24/17 12/13/21 Sreedhar Ortega MD [address] [place] [address] PCP - General Internal Medicine 12/14/21 Jacobo Becker MD 45[address] [facility] [address] [place] [address] Referring Physician Pulmonary Disease 05/05/22 Bill Ortega MD 5[address] [facility] [address] [place] [address] Consulting Physician Cardiology 05/05/22 Bebe Loredo MD [address] [facility] NEUROLOGY SLEEP MED, [facility] [address] [place] [address] Consulting Physician Sleep Medicine 07/27/22 Luis A Hernandez MD [address] [facility] [address] [address] Consulting Physician Cardiovascular Disease 05/13/24 documented as of this encounter
--- OUTSIDE RECORDS SUMMARY | 2024-09-30 13:11 | XMS_ITS | Encounter Summary ---
Author Organization [facility] Address [address] [place] [address] Phone Care Team Providers Care Marketing Financial Analyst Name Role Phone Bruce Bush MD Primary Care Provider [phone] Sreedhar Ortega MD Primary Care Provider [phone] Jacobo Becker MD Unavailable [phone] Bill Ortega MD Unavailable [phone] Bebe Loredo MD Unavailable Luis A Hernandez MD Unavailable [phone] Encounter Details Date Type Department Care Team [...] on filedocumented in this encounter Care Teams Marketing Financial Analyst Relationship Specialty Start Date End Date Bruce Bush MD 10 [facility] [place] [address] PCP - General Family Medicine 05/24/17 12/13/21 Sreedhar Ortega MD [address] [place], [place] [address] PCP - General Internal Medicine 12/14/21 Jacobo Becker MD 45[address] [facility] [address] [place] [address] Referring Physician Pulmonary Disease 05/05/22 Bill Ortega MD 5[address] [facility] [address] [place] [address] Consulting Physician Cardiology 05/05/22 Bebe Loredo MD [address] [facility] NEUROLOGY SLEEP [facility] [address] [place] [address] Consulting Physician Sleep Medicine 07/27/22 Luis A Hernandez MD 46[address] [facility] [address] [address] Consulting Physician Cardiovascular Disease 05/13/24 documented as of this encounter
--- OUTSIDE RECORDS SUMMARY | 2024-09-30 13:11 | XMS_ITS | Clinical Summary ---
Author Organization [facility] Address [address] [place] [address] Care Team Providers Care Gusset Edger Name Role Phone Sreedhar Ortega MD Primary Care Provider [phone] Active Problems Problem Noted Date Diagnosed Date [...] age to complete this topic Insurance MEDICARE [facility] Care Teams Gusset Edger Relationship Specialty Start Date End Date Sreedhar Ortega MD [address] [place] [address] PCP - General INTERNAL MEDICINE 10/19/22
--- OUTSIDE RECORDS SUMMARY | 2024-09-30 13:11 | XMS_ITS | Encounter Summary ---
Author Organization [facility] Address [address] [place] [address] Phone Care Team Providers Care Manager Mechanical Maintenance Name Role Phone Bruce Bush MD Primary Care Provider [phone] Sreedhar Ortega MD Primary Care Provider [phone] Jacobo Becker MD Unavailable [phone] Bill Ortega MD Unavailable [phone] Bebe Loredo MD Unavailable Luis A Hernandez MD Unavailable [phone] Encounter Details Date Type Department Care Team [...] filedocumented in this encounter Care Teams Manager Mechanical Maintenance Relationship Specialty Start Date End Date Bruce Bush MD 10 [facility] [place] [address] PCP - General Family Medicine 05/24/17 12/13/21 Sreedhar Ortega MD [address] [place] [address] PCP - General Internal Medicine 12/14/21 Jacobo Becker MD 4523 [facility] [address] [place] [address] Referring Physician Pulmonary Disease 05/05/22 Bill Ortega MD [address] [facility] [address] [place] [address] Consulting Physician Cardiology 05/05/22 Bebe Loredo MD [address] [facility] NEUROLOGY SLEEP [facility] [address] [place] [address] Consulting Physician Sleep Medicine 07/27/22 Luis A Hernandez MD [address] [facility] [address] [address] Consulting Physician Cardiovascular Disease 05/13/24 documented as of this encounter
--- OUTSIDE RECORDS SUMMARY | 2024-09-30 13:11 | XMS_ITS | Encounter Summary ---
Author Organization [facility] Address [address] [place] [address] Phone Care Team Providers Care Silver Designer Name Role Phone Sreedhar Ortega MD Primary Care Provider [phone] Jacobo Becker MD Unavailable Bill Ortega MD Unavailable [phone] Bebe Loredo MD Unavailable Luis A Hernandez MD Unavailable [phone] Encounter Details Date Type Department Care [...] on filedocumented in this encounter Care Teams Silver Designer Relationship Specialty Start Date End Date rSeedhar Ortega MD [address] [place] [address] PCP - General Internal Medicine 12/14/21 Jacobo Becker MD 45[address] [facility] [address] [place] [address] Referring Physician Pulmonary Disease 05/05/22 Bill Ortega MD 5[address] [facility] [address] [place] [address] Consulting Physician Cardiology 05/05/22 Bebe Loredo MD [address] [facility] NEUROLOGY SLEEP MED, [facility] [address] [place] [address] Consulting Physician Sleep Medicine 07/27/22 Luis A Hernandez MD [address] [place] [address] Consulting Physician Cardiovascular Disease 05/13/24 documented as of this encounter
[2024-09-30 14:02] LABS: Anion Gap 3 mmol/L (4-12); Blood Urea Nitrogen 9 mg/dL (7-17); Calcium 8.7 mg/dL (8.4-10.2); Carbon Dioxide 36 mmol/L (22-30); Chloride 97 mmol/L (98-107); Estimated Glomerular Filt Rate > 60; Glucose 110 mg/dL (65-110); Potassium 3.8 mmol/L (3.4-5.0); Sodium 136 mmol/L (137-145)
== END 2024-09-30 13:05 | disposition home or self-care (01) ==
LOC: ANHSURGERY 13:08
PROVIDERS: Anesthesiology; PCP Internal Medicine; Visit Provider Plastic Surgery
DX: Z51.81 Encounter for therapeutic drug level monitoring (principal); Z79.899 Other long term (current) drug therapy
CPT/HCPCS: 36415; 80048

== ENCOUNTER 2024-10-07 01:23 | Day surgery (SDC) | payer MEDICARE, SELFPAY ==
[2024-09-29 09:49] VITALS: BMI 35.6
--- NOTE | 2024-09-29 10:30 | PC.NURSE ---
Report to the Outpatient Waiting Room, entrance under the green pavilion located off [facility], at time __10:30AM___ on date __10/07/24___. Planned Procedure Time: __112:30PM____.? Time changes happen often and if your time is changed the preop area will call you the afternoon before. - You and your visitor will be asked to self-screen and do not enter if you have any COVID symptoms. Please call surgeon if you need to reschedule. - A mask is optional within the hospital at this time. Patients may have clear liquids (water, carbonated beverages, clear teas, apple juice) until 3 hours prior to surgery (9:30AM) with a maximum of 20 ounces. - No food from midnight until time of surgery and no smoking, or chewing tobacco (or any form of nicotine). No chewing gum, candy or mints. Take only the following medications with a SIP of water on the morning of surgery: ___METOPROLOL. MAY USE ALBUTEROL INHALER NEEDED. DO NOT STOP ANY OF YOUR OTHER PRESCRIPTION MEDICATIONS PRIOR TO SURGERY EXCEPT THE FOLLOWING Hold all vitamins and supplements for 3 days per anesthesiologist.-last dose 10/03/24 HOLD SEMAGLUTIDE(for weight loss) X10 DAYS PRE-OP PER ANESTHESIA- LAST DOSE 09/26/24. Medications to discontinue per physician __HOLD ASPIRIN PER DR COLBY-PATIENT CALLING OFFICE TO CONFIRM.___ Please no make-up, nail panamanian, hairspray, perfume, deodorant, or body powder the day of surgery.? No jewelry (including any body piercings) or valuables the day of surgery, leave them at home.? Please take a shower or bath the night before, or the morning of, surgery with an antibacterial soap.? Wear comfortable, loose fitting clothing.? - Jewelry must be removed prior to entering the operating room.? Rings and piercings that are not removed may be cut off. - The hospital will not accept responsibility for valuables.? - Please leave all valuables, including medications, at home the day of surgery. If you are going home after surgery, a licensed experienced truck driver must drive you home.? - NO public transportation without another adult if you receive anesthesia. - We recommend that an adult stay with you for 24 hours following discharge. - We also recommend that you do not drive, make important decision, drink alcoholic beverages, or take any drugs that were not prescribed by your health care provider for at least 24 hours after your discharge time. Follow any additional instructions given to you from your surgeon. BRING OXYGEN FOR TRANSPORTATION HOME. Telephone instructions given to and asked if any additional questions and then verbalized understanding. Patient advised to call surgeon office or pre surgery nurse liaison [phone] if any additional questions.
--- NOTE | 2024-09-29 10:39 | PC.NURSE ---
Report to the Outpatient Waiting Room, entrance under the green pavilion located off [facility], at time __10:30AM___ on date __10/07/24___. Planned Procedure Time: ___12:30PM___.? Time changes happen often and if your time is changed the preop area will call you the afternoon before. - You and your visitor will be asked to self-screen and do not enter if you have any COVID symptoms. Please call surgeon if you need to reschedule. - A mask is optional within the hospital at this time. Patients may have clear liquids (water, carbonated beverages, clear teas, apple juice) until 8 hours prior to surgery (4:30am) with a maximum of [address] COLBY.. - No food from midnight until time of surgery and no smoking, or chewing tobacco (or any form of nicotine). No chewing gum, candy or mints. . Take only the following medications with a SIP of water on the morning of surgery: __METOPROLOL. MAY USE ALBUTEROL INHALER NEEDED. DO NOT STOP ANY OF YOUR OTHER PRESCRIPTION MEDICATIONS PRIOR TO SURGERY EXCEPT THE FOLLOWING Hold all vitamins and supplements for 3 days per anesthesiologist.-LAST DOSE 10/03/24. HOLD SEMAGLUTIDE (WEIGHT LOSS) 10 DAYS PRE-OP PER ANESTHESIA- LAST DOSE 09/26/24. Medications to discontinue per physician ____HOLD ASPIRIN PER DR COLBY-PATIENT CALLING OFFICE TO CONFIRM. Please no make-up, nail kinyarwanda, hairspray, perfume, deodorant, or body powder the day of surgery.? No jewelry (including any body piercings) or valuables the day of surgery, leave them at home.? Please take a shower or bath the night before, or the morning of, surgery with an antibacterial soap.? Wear comfortable, loose fitting clothing.? - Jewelry must be removed prior to entering the operating room.? Rings and piercings that are not removed may be cut off. - The hospital will not accept responsibility for valuables.? - Please leave all valuables, including medications, at home the day of surgery. If you are going home after surgery, a licensed driver's license examiner must drive you home.? - NO public transportation without another adult if you receive anesthesia. - We recommend that an adult stay with you for 24 hours following discharge. - We also recommend that you do not drive, make important decision, drink alcoholic beverages, or take any drugs that were not prescribed by your health care provider for at least 24 hours after your discharge time. Follow any additional instructions given to you from your surgeon. BRING OXYGEN FOR TRANSPORTATION HOME. Telephone instructions given to ____PATIENT and asked if any additional questions and then verbalized understanding. Patient advised to call surgeon office or pre surgery nurse liaison [phone] if any additional questions.
--- OUTSIDE RECORDS SUMMARY | 2024-10-07 01:28 | XMS_ITS | Clinical Summary ---
Author Organization [facility] Address [address] [place] [address] Phone Care Team Providers Care Circular Distributor Name Role Phone Bruce Bush MD Primary Care Provider [phone] Allergies Active Allergy Reactions Criticality Noted Date [...] on file Legal Sex Female 9:27 AM SEMICONDUCTOR EQUIPMENT TECHNICIAN Gender Identity Not on file Sexual Orientation Not on file Last Filed Vital Signs Vital Sign Reading Time Taken Comments Blood Pressure 141/90 02/15/2015 7:16 AM SEMICONDUCTOR EQUIPMENT TECHNICIAN Pulse - - Temperature 36.5 C (97.7 F) 02/15/2015 7:16 AM SEMICONDUCTOR EQUIPMENT TECHNICIAN Respiratory Rate 16 02/15/2015 7:16 AM SEMICONDUCTOR EQUIPMENT TECHNICIAN Oxygen Saturation 95% 02/15/2015 7:16 AM SEMICONDUCTOR EQUIPMENT TECHNICIAN Inhaled Oxygen Concentration - - Weight 91.2 kg (201 lb) 02/08/2015 11:00 AM SEMICONDUCTOR EQUIPMENT TECHNICIAN Height 167.6 cm (5' 6) 02/08/2015 11:00 AM SEMICONDUCTOR EQUIPMENT TECHNICIAN Body Mass Index 32.44 02/08/2015 11:00 AM SEMICONDUCTOR EQUIPMENT TECHNICIAN Plan of Treatment Health Maintenance Due Date [...] patient's age to complete this topic Insurance [facility] Care Teams Circular Distributor Relationship Specialty Start Date End Date Bruce Bush MD [address] [place] [address] PCP - General Family Medicine 02/14/15
--- OUTSIDE RECORDS SUMMARY | 2024-10-07 01:28 | XMS_ITS | Encounter Summary ---
Author Organization [facility] Address [address] [place] [address] Phone Care Team Providers Care Exterminator Name Role Phone Bruce Bush MD Primary Care Provider [phone] Sreedhar Ortega MD Primary Care Provider [phone] Jacobo Becker MD Unavailable [phone] Bill Ortega MD Unavailable [phone] Bebe Loredo MD Unavailable Luis A Hernandez MD Unavailable [phone] Encounter Details Date Type Department Care Team [...] on filedocumented in this encounter Care Teams Exterminator Relationship Specialty Start Date End Date Bruce Bush MD 10 [facility] [place] [address] PCP - General Family Medicine 05/24/17 12/13/21 Sreedhar Ortega MD [address] [place], [place] [address] PCP - General Internal Medicine 12/14/21 Jacobo Becker MD 45[address] [facility] [address] [place] [address] Referring Physician Pulmonary Disease 05/05/22 Bill Ortega MD 5201 [facility] [address] [place] [address] Consulting Physician Cardiology 05/05/22 Bebe Loredo MD [address] [facility] NEUROLOGY SLEEP [facility], [facility] [address] [place] [address] Consulting Physician Sleep Medicine 07/27/22 Luis A Hernandez MD 4600 [facility] [address] [address] Consulting Physician Cardiovascular Disease 05/13/24 documented as of this encounter
--- OUTSIDE RECORDS SUMMARY | 2024-10-07 01:28 | XMS_ITS | Encounter Summary ---
Author Organization [facility] Address [address] [place] [address] Phone Care Team Providers Care Floriculture Teacher Name Role Phone Sreedhar Ortega MD Primary Care Provider [phone] Jacobo Becker MD Unavailable [phone] Bill Ortega MD Unavailable [phone] Bebe Loredo MD Unavailable Luis A Hernandez MD Unavailable [phone] Encounter Details Date Type Department Care [...] as of this encounter Functional Status * AUDIT-C Score Answer Date of Assessment Author 1 [...] on filedocumented in this encounter Care Teams Floriculture Teacher Relationship Specialty Start Date End Date Sreedhar Ortega MD [address] [place] [address] PCP - General Internal Medicine 12/14/21 Jacobo Becker MD 4523 [facility] [address] [place] [address] Referring Physician Pulmonary Disease 05/05/22 Bill Ortega MD 5201 [facility] [address] [place] [address] Consulting Physician Cardiology 05/05/22 Bebe Loredo MD [address] [facility] NE[facility]OLOGY SLEEP [facility] [address] [place] [address] Consulting Physician Sleep Medicine 07/27/22 Luis A Hernandez MD [address] [facility] [place] [address] Consulting Physician Cardiovascular Disease 05/13/24 documented as of this encounter
--- OUTSIDE RECORDS SUMMARY | 2024-10-07 01:28 | XMS_ITS | Clinical Summary ---
Author Organization [facility] Address [address] [place] [address] Care Team Providers Care Manager Money Name Role Phone Unavailable Primary Care Provider Unavailabl e Source Comments [facility],non-owned Affiliates and Associated Physician Practices is amultiple site organization consisting of ambulatory clinics and hospital sitesin [place], [place], [place] and [place]. This disclosure is being madepursuant to the Care Everywhere program and may not contain all information available regarding this patient. Last updated 17.[facility] Allergies Active Allergy Reactions Criticality Noted Date [...] on file Legal Sex Female 2:42 PM DIRECTOR OF HOTEL Gender Identity Not on file Sexual Orientation Not on file Last Filed Vital Signs Vital Sign Reading Time Taken Comments Blood Pressure 126/80 01/19/2019 5:21 PM DIRECTOR OF HOTEL Pulse 84 01/19/2019 5:21 PM DIRECTOR OF HOTEL Temperature 37.4 C (99.3 F) 01/19/2019 5:21 PM DIRECTOR OF HOTEL Respiratory Rate 20 01/19/2019 5:21 PM DIRECTOR OF HOTEL Oxygen Saturation 93% 01/19/2019 5:21 PM DIRECTOR OF HOTEL Inhaled Oxygen Concentration - - Weight 104.3 kg (230 lb) 01/19/2019 5:21 PM DIRECTOR OF HOTEL Height 167.6 cm (5' 6) 01/19/2019 5:21 PM DIRECTOR OF HOTEL Body Mass Index 37.12 01/19/2019 5:21 PM DIRECTOR OF HOTEL Plan of Treatment Health Maintenance Due Date [...] age to complete this topic Insurance MEDICARE [facility] MEDICARE [facility]
--- OUTSIDE RECORDS SUMMARY | 2024-10-07 01:28 | XMS_ITS | Encounter Summary ---
Author Organization [facility] Address [address] [place] [address] Phone Care Team Providers Care Software Sales Representative Name Role Phone Bruce Bush MD Primary Care Provider [phone] Sreedhar Ortega MD Primary Care Provider [phone] Jacobo Becker MD Unavailable [phone] Bill Ortega MD Unavailable [phone] Bebe Loredo MD Unavailable Luis A Hernandez MD Unavailable [phone] Encounter Details Date Type Department Care Team [...] on filedocumented in this encounter Care Teams Software Sales Representative Relationship Specialty Start Date End Date Malelolah, Bruce E., MD 10 [place] [address] PCP - General Family Medicine 05/24/17 12/13/21 Sreedhar Ortega MD [address] [place], [place] [address] PCP - General Internal Medicine 12/14/21 Jacobo Becker MD 4523 [facility] [address] [place] [address] Referring Physician Pulmonary Disease 05/05/22 Bill Ortega MD 5201 [facility] [address] [place] [address] Consulting Physician Cardiology 05/05/22 Bebe Loredo MD [address] [facility] NEUROLOGY SLEEP [facility], [facility] [address] [place] [address] Consulting Physician Sleep Medicine 07/27/22 Luis A Hernandez MD [address] [facility] [address] [address] Consulting Physician Cardiovascular Disease 05/13/24 documented as of this encounter
--- OUTSIDE RECORDS SUMMARY | 2024-10-07 01:28 | XMS_ITS | Clinical Summary ---
Author Organization [facility] [address] Address [address] [place] [address] Care Team Providers Care Instrument Maker And Repairer Name Role Phone Sreedhar Ortega MD Primary Care Provider [phone] Jacobo Becker MD Unavailable [phone] Bill Ortega MD Unavailable [phone] Bebe Loredo MD Unavailable Luis A Hernandez MD Unavailable [phone] Allergies Active Allergy Reactions Criticality Noted Date Comments Cat Dander Unknown 04/11/2023 Chicken Derived Shortness of breath High 02/08/2015 Patient reports allergy was indicated from a skin test with Machine Cage Maker when she was young. States she eats [...] 2.5 tablets (25 mg total) by mouth shoe lay out planner before breakfast Active furosemide (LASIX) 20 mg tabletIndicatio ns:Edema,hypert ension Take 3 tablets (60 mg total) by mouth shoe lay out planner before breakfast 3 10/09/201 8 Active losartan (COZAAR) 25 mg tabletIndicatio ns:hypertension Take 1 tablet (25 mg total) by mouth shoe lay out planner before breakfast Active albuterol HFA (PROVENTIL HFA,VENTOLIN HFA,PROAIR HFA) 90 mcg/actuation inhalerIndicati ons:Acute Asthma Attack Inhale 2 puffs every 4 hours Active cholecalciferol , vitamin D3, (VITAMIN D3 ORAL) Take 1 tablet by mouth shoe lay out planner before breakfast Active calcium citrate 250 mg calcium tablet tabletIndicatio ns:Hypocalcemia Prevention Take 1 tablet (250 mg total) by mouth shoe lay out planner before breakfast Active aspirin 325 mg tabletIndicatio ns:prevention of thrombosis Take 1 tablet (325 mg total) by mouth shoe lay out planner before breakfast Active furosemide (LASIX) 40 mg tablet 3 Active metoprolol XL (TOPROL-XL) 25 mg extended release tabletIndicatio ns:hypertension Take 0.5 tablets (12.5 mg total) by mouth shoe lay out planner before breakfast 45 tablet 3 3 Active [...] (12/16/2021): Added automatically from request for surgery [id number] 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 11/26 Overview (12/16/2021): Added automatically from request for surgery [id number] Deep vein thrombosis (DVT) 04/27/2018 Pulmonary hypertension Resolved Problems Problem Noted Date Diagnosed Date Resolved Date Lesion of right eyelid 12/16/202104/11 Overview (12/16/2021): Added automatically from request for surgery [id number] Lesion of left eyelid 12/16/20212023 Overview (12/16/2021): Added automatically from request for surgery [id number] Hypoxia 04/11/2023 Immunizations Immunization Administration Dates Next [...] Added aut omatically from request for surgery [id number] Lesion of left eyelid 12/16/2021 Added auto matically from request for surgery [id number] Hypoxia Family History Medical History Relation Name [...] vaccine 65+ Completed 10/27/2020, 03/28 Insurance MEDICARE [facility] MEDICARE [facility] MEDICARE [facility] [place] [address] MEDICARE [facility] Care Teams Instrument Maker And Repairer Relationship Specialty Start Date End Date Sreedhar Ortega MD [address] [place] [address] PCP - General Internal Medicine 12/14/21 Jacobo Becker MD [address] [place] [address] Referring Physician Pulmonary Disease 05/05/22 Bill Ortega MD 5201 [facility] [address] [place] [address] Consulting Physician Cardiology 05/05/22 Bebe Loredo MD [address] [place] [address] NEUROLOGY SLEEP MED, [facility] [address] [place] [address] Consulting Physician Sleep Medicine 07/27/22 Luis A Hernandez MD [address] [place] [address] Consulting Physician Cardiovascular Disease 05/13/24
--- OUTSIDE RECORDS SUMMARY | 2024-10-07 01:28 | XMS_ITS | Encounter Summary ---
Author Organization [facility] Address [address] [place] [address] Phone Care Team Providers Care History Department Chair Name Role Phone Bruce Bush MD Primary Care Provider [phone] Sreedhar Ortega MD Primary Care Provider [phone] Jacobo Becker MD Unavailable [phone] Bill Ortega MD Unavailable [phone] Bebe Loredo MD Unavailable Luis A Hernandez MD Unavailable [phone] Encounter Details Date Type Department Care Team [...] on filedocumented in this encounter Care Teams History Department Chair Relationship Specialty Start Date End Date Bruce Bush MD [address] [place] [address] PCP - General Family Medicine 05/24/17 12/13/21 Sreedhar Ortega MD [address] [place] [address] PCP - General Internal Medicine 12/14/21 Jacobo Becker MD 4523 [facility] [address] [place] [address] Referring Physician Pulmonary Disease 05/05/22 Bill Ortega MD 5201 [facility] [address] [place] [address] Consulting Physician Cardiology 05/05/22 Bebe Loredo MD [address] [facility] NEUROLOGY SLEEP MED, [facility] [address] [place] [address] Consulting Physician Sleep Medicine 07/27/22 Luis A Hernandez MD [address] [facility] [address] [address] Consulting Physician Cardiovascular Disease 05/13/24 documented as of this encounter
--- OUTSIDE RECORDS SUMMARY | 2024-10-07 01:28 | XMS_ITS | Encounter Summary ---
Author Organization [facility] Address [address] [place] [address] Phone Care Team Providers Care Rag Willow Operator Name Role Phone Sreedhar Ortega MD Primary Care Provider [phone] Jacobo Becker MD Unavailable [phone] Bill Ortega MD Unavailable [phone] Bebe Loredo MD Unavailable Luis A Hernandez MD Unavailable [phone] Encounter Details Date Type Department Care [...] on filedocumented in this encounter Care Teams Rag Willow Operator Relationship Specialty Start Date End Date Sreedhar Ortega MD [address] [place] [address] PCP - General Internal Medicine 12/14/21 Jacobo Becker MD [address] [facility] [address] [place] [address] Referring Physician Pulmonary Disease 05/05/22 Bill Ortega MD [address] [facility] [address] [place] [address] Consulting Physician Cardiology 05/05/22 Bebe Loredo MD [address] [facility] NEUROLOGY SLEEP MED, [facility] [address] [place] [address] Consulting Physician Sleep Medicine 07/27/22 Luis A Hernandez MD [address] [place] [address] Consulting Physician Cardiovascular Disease 05/13/24 documented as of this encounter
--- OUTSIDE RECORDS SUMMARY | 2024-10-07 01:28 | XMS_ITS | Encounter Summary ---
Author Organization [facility] Address [address] [place] [address] Phone Care Team Providers Care Gasoline Dragline Operator Name Role Phone Bruce Bush MD Primary Care Provider [phone] Sreedhar Ortega MD Primary Care Provider [phone] Jacobo Becker MD Unavailable [phone] Bill Ortega MD Unavailable [phone] Bebe Loredo MD Unavailable Luis A Hernandez MD Unavailable [phone] Encounter Details Date Type Department Care Team [...] on filedocumented in this encounter Care Teams Gasoline Dragline Operator Relationship Specialty Start Date End Date Bruce Bush MD [address] [facility] [place] [address] PCP - General Family Medicine 05/24/17 12/13/21 Sreedhar Ortega MD [address] [place] [address] PCP - General Internal Medicine 12/14/21 Jacobo Becker MD [address] [facility] [address] [place] [address] Referring Physician Pulmonary Disease 05/05/22 Bill Ortega MD [address] [facility] [address] [place] [address] Consulting Physician Cardiology 05/05/22 Bebe Loredo MD [address] [facility] NEUROLOGY SLEEP [facility] [address] [place] [address] Consulting Physician Sleep Medicine 07/27/22 Luis A Hernandez MD [address] [facility] [address] [place] [address] [address] Consulting Physician Cardiovascular Disease 05/13/24 documented as of this encounter
--- OUTSIDE RECORDS SUMMARY | 2024-10-07 01:28 | XMS_ITS | Encounter Summary ---
Author Organization [facility] Address [address] [place] [address] Phone Care Team Providers Care Business Insight And Analytics Manager Name Role Phone Bruce Bush MD Primary Care Provider [phone] Sreedhar Ortega MD Primary Care Provider [phone] Jacobo Becker MD Unavailable [phone] Bill Ortega MD Unavailable [phone] Bebe Loredo MD Unavailable Luis A Hernandez MD Unavailable [phone] Encounter Details Date Type Department Care Team [...] on filedocumented in this encounter Care Teams Business Insight And Analytics Manager Relationship Specialty Start Date End Date Bruce Bush MD [address] [facility] [place] [address] PCP - General Family Medicine 05/24/17 12/13/21 Sreedhar Ortega MD [address] [place], [place] [id number] PCP - General Internal Medicine 12/14/21 Jacobo Becker MD [address] [facility] [address] [place] [address] Referring Physician Pulmonary Disease 05/05/22 Bill Ortega MD [address] [facility] [address] [place] [address] Consulting Physician Cardiology 05/05/22 Bebe Loredo MD [address] [facility] NEUROLOGY SLEEP [facility] [address] [place] [address] Consulting Physician Sleep Medicine 07/27/22 Luis A Hernandez MD [address] [facility] [address] [address] Consulting Physician Cardiovascular Disease 05/13/24 documented as of this encounter
--- OUTSIDE RECORDS SUMMARY | 2024-10-07 01:28 | XMS_ITS | Clinical Summary ---
Author Organization [facility] Address [address] [place] [address] Care Team Providers Care It Senior Software Engineer Java Name Role Phone Sreedhar Ortega MD Primary Care Provider [phone] Active Problems Problem Noted Date Diagnosed Date [...] age to complete this topic Insurance MEDICARE [facility] Care Teams It Senior Software Engineer Java Relationship Specialty Start Date End Date Sreedhar Ortega MD [address] [place] [address] PCP - General INTERNAL MEDICINE 10/19/22
--- NOTE | 2024-10-07 06:58 | PM.HPGS ---
History of Present Illness History of Present Illness Chief complaint: Lt carpal & cubital tunnel Synd Narrative: Patient seen and examined in pre-operative holding area. No interval change in medical history or symptoms. Patient recalls previous discussion of benefits and alternatives to procedure. Continues to desire to proceed with left endoscopic possible open carpal tunnel release and left cubital tunnel release. Reviewed procedure, post-op expectations and risks including but not limited to bleeding, infection, injury to tendon/nerve/vessel, decreased hand function, stiffness, RSD, no change or worsening of symptoms. I discussed the possible use of assistants and their participation in the case. Patient stated understanding and signed the consent form wishing to proceed. Review of Systems Review of Systems: All systems reviewed & are unremarkable except as noted in HPI and below PMFSH Past Medical History Medical History (Updated 10/06/24 @ 14:43 by Felix Mathews, ) Chronic respiratory failure On home O2 JESSEE (obstructive sleep apnea) Asthma CHF (congestive heart failure) Systolic Cataracts, both eyes Pulmonary hypertension Kyphoscoliosis Acute respiratory failure with hypoxia and hypercapnia HTN (hypertension) with goal to be determined History of ovarian cyst Diverticulitis History of pneumonia Bronchitis DVT (deep venous thrombosis) Both legs after a trip to [place] Surgical History Surgical History (Updated 04/15/23 @ 11:01 by Ana Novak, ELLIOTT) Hx of excision of mass 1. Excision of 1.5 cm left upper back cyst 2. Excision of 1.2 cm right upper back cyst 03/22/23 [facility] History of surgery on arm lt. 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 Her is the power tape cutting machine operator. She desires to be a full code. She has 3 children. Lifelong nonsmoker. No alcohol. No illicit drugs. Lives with her Smoking status: Never smoker Second hand tobacco smoke exposure: No Alcohol intake: current Drinks per week: 1 Substance use: never Living arrangements: with family Additional living arrangements comments: [place] Occupation/Education: retired Gender identity (if verbalized by the patient): Female Spiritual care concerns: No (3-4 GLASSES/MONTH) Agree to blood products: Yes Meds Home Medications and Allergies Home Medications ?Medication ?Instructions ?Recorded ?Confirmed ?Type albuterol sulfate 90 mcg/actuation 2 puff inhalation QID PRN 03/03/19 09/29/24 History aerosol inhaler (ProAir HFA) Shortness Of Breath Or Wheezing aspirin 325 mg tablet 325 mg PO DAILY 03/03/19 09/29/24 History loratadine 10 mg tablet 10 mg PO DAILY 03/03/19 09/29/24 History losartan 25 mg tablet 25 mg PO DAILY 03/03/19 09/29/24 History cholecalciferol (vitamin D3) 50 50 mcg PO DAILY 12/31/19 09/29/24 History mcg (2,000 unit) capsule calcium carbonate (Calcium 600) 600 mg PO DAILY 06/08/22 09/29/24 History metoprolol succinate 25 mg 12.5 mg PO QAM 06/08/22 10/07/24 History tablet,extended release 24 hr potassium chloride 10 mEq 10 meq PO DAILY 03/14/23 09/29/24 History tablet,extended release(part/cryst) (Klor-Con M) furosemide 40 mg tablet 60 mg PO QAM 09/29/24 09/29/24 History semaglutide (weight loss) 3 mg subcut WEEKLY WEIGHT LOSS 09/29/24 09/29/24 History Allergies Allergy/AdvReac Type Severity Reaction Status Date / Time ibuprofen Allergy Unknown Swelling Verified 10/07/24 10:57 Penicillins Allergy Unknown RASH Verified 10/07/24 10:57 Common Ragweed Allergy Mild NASAL AND Uncoded 09/29/24 09:39 CHEST CONGESTION Cat Dander Allergy Unknown ASTHMA Uncoded 09/29/24 09:39 SYMPTOMS Chicken Feathers Allergy Unknown NASAL Uncoded 09/29/24 09:39 CONGESTION AND SWELLING ASTHMA SYMPTOMS WHEEZING Dog Dander Allergy Unknown ASTHMA Uncoded 09/29/24 09:39 SYMPTOMS Dust Allergy Unknown ASTHMATIC Uncoded 09/29/24 09:39 SYMPTOMS WHEEZING AND COUGHING Grass Allergy Unknown NASAL Uncoded 09/29/24 09:39 CONGESTION AND WHEEZING Molds and Smuts Allergy Unknown SNEEZING Uncoded 09/29/24 09:39 NASAL AND CHEST CONGESTION Exam Narrative: unchanged Assessment and Plan Assessment and plan (1) Entrapment of left ulnar nerve at elbow: Code(s): G56.22 - Lesion of ulnar nerve, left upper limb Status: Acute Assessment and Plan: cont as above (2) Bilateral carpal tunnel syndrome: Code(s): G56.03 - Carpal tunnel syndrome, bilateral upper limbs Status: Acute
--- NOTE | 2024-10-07 06:59 | W.PM.PROC2 ---
Procedure Note - Detailed Date of Procedure 10/07/24 Pre-op Diagnosis Lt carpal & cubital tunnel Synd Post-op Diagnosis Same Procedure Performed left ectr and CuTR Surgeon Adi Mayo MD Forming Department Supervisor sven decker pa-c Anesthesia MAC Description of Procedure INFORMED CONSENT: The patient was seen and examined and marked in the pre-op area.? The patient signed the consent form. PROCEDURE IN DETAIL:The patient taken back to OR on the stretcher in supine position. Time out performed with anesthesia, surgeon and staff agreeing on patient's name site and surgery to be performed SCDs were placed on the lower extremities and inflated. A tourniquet was placed on {/left} upper extremity and antibiotics given IV After anesthesia administered sedation I injected {10}cc 1%lido with epi and 0.5% marcaine plain at the operative sites The?{left upper extremity}?was prepped and draped in sterile fashion the??{left upper extremity} was? exsanguinated with Esmarch bandage and tourniquet inflated to 250mmHg I made a transverse incision in the {left} volar distal wrist crease through skin and dermis with 15 blade scalpel.? Littler scissors spread down to antebrachial fascia. A small incision was made in antebrachial fascia allowing access to Carpal tunnel. I proceeded with sequential dilation staying in line with the ring finger and hugging the hook of the hamate.? I then used the synovial elevator to free any adhesions from the underside of the transverse carpal ligament. Next I was able to insert the Microaire endoscopic carpal tunnel device with direct visualization of the transverse fibers on the monitor and proceeded with complete segmental retrograde release of the ligament in its entirety.? I irrigated with normal saline and closed with 4-0 monocryl for dermis and subcuticular closure. I next proceeded with making a longitudinal incision between two heads for flexor carpi ulnaris at end of {left} cubital tunnel with 15 blade scalpel.? Littler scissors were used to spread down to FCU fascia.? An incision was made in FCU fascia and ulnar nerve identified exiting cubital tunnel.? I proceeded with complete retrograde release of the cubital tunnel including 7cm proximal for the intermuscular septum.? The nerve appeared healthy with visible vaso nervorum.? There was no subluxation on full elbow range of motion. ? I irrigated with normal saline and closure with 4-0 monocryl for dermis and subcuticular. The incisions were covered with Dermabond then 4x4s, nadia, and a posterior elbow and volar wrist splint for patient safety, security and comfort and secured with adolfo bandages after the tourniquet was let down noting the hand was warm and well perfused.? Patient awaken from anesthesia and transferred to recovery in stable condition Complications - none EBL- 1cc Disposition - home in stable condition Sven Decker PA-C was essential for positioning, retraction, closure and dressing placement [facility] Billing Surgery - Charge Forward: Surgery Billing ([id number] same for sven adding )
--- NOTE | 2024-10-07 08:09 | P.PNAN_ITS ---
Anes - Initial Pre Proc Eval Procedure: Operation Date: 10/07/24 12:30 Proposed Procedures p Left Endoscopic Carpal Tunnel Release, Possible Open Left Cubital Tunnel Release - Adi Mayo MD Date/Time: 10/07/24 08:09 Surgeon: Adi Mayo MD Pre Op Diagnosis: Lt carpal & cubital tunnel Synd Patient Data Age: 69 Gender: F Height: 1.68 m Weight: 100 kg Allergies Allergy/AdvReac Type Severity Reaction Status Date / Time ibuprofen Allergy Unknown Swelling Verified 10/07/24 10:57 Penicillins Allergy Unknown RASH Verified 10/07/24 10:57 Common Ragweed Allergy Mild NASAL AND Uncoded 09/29/24 09:39 CHEST CONGESTION Cat Dander Allergy Unknown ASTHMA Uncoded 09/29/24 09:39 SYMPTOMS Chicken Feathers Allergy Unknown NASAL Uncoded 09/29/24 09:39 CONGESTION AND SWELLING ASTHMA SYMPTOMS WHEEZING Dog Dander Allergy Unknown ASTHMA Uncoded 09/29/24 09:39 SYMPTOMS Dust Allergy Unknown ASTHMATIC Uncoded 09/29/24 09:39 SYMPTOMS WHEEZING AND COUGHING Grass Allergy Unknown NASAL Uncoded 09/29/24 09:39 CONGESTION AND WHEEZING Molds and Smuts Allergy Unknown SNEEZING Uncoded 09/29/24 09:39 NASAL AND CHEST CONGESTION Home Medications ?Medication ?Instructions ?Recorded ?Confirmed ?Type albuterol sulfate 90 mcg/actuation 2 puff inhalation QID PRN 03/03/19 10/07/24 History aerosol inhaler (ProAir HFA) Shortness Of Breath Or Wheezing aspirin 325 mg tablet 325 mg PO DAILY 03/03/19 10/07/24 History loratadine 10 mg tablet 10 mg PO DAILY 03/03/19 09/29/24 History losartan 25 mg tablet 25 mg PO DAILY 03/03/19 09/29/24 History cholecalciferol (vitamin D3) 50 50 mcg PO DAILY 12/31/19 09/29/24 History mcg (2,000 unit) capsule calcium carbonate (Calcium 600) 600 mg PO DAILY 06/08/22 09/29/24 History metoprolol succinate 25 mg 12.5 mg PO QAM 06/08/22 10/07/24 History tablet,extended release 24 hr potassium chloride 10 mEq 10 meq PO DAILY 03/14/23 09/29/24 History tablet,extended release(part/cryst) (Klor-Con M) furosemide 40 mg tablet 60 mg PO QAM 09/29/24 09/29/24 History semaglutide (weight loss) 3 mg subcut WEEKLY WEIGHT LOSS 09/29/24 10/07/24 History tramadol 50 mg tablet 50 mg PO Q6H PRN pain #12 tabs 10/07/24 Rx Patient hx anesthesia problems: none Family hx anesthesia problems: none Results Review: All pre-operative results and documents have been reviewed as part of the pre- operative evaluation. [facility] Past Medical History Medical History (Updated 10/06/24 @ 14:43 by Felix Mathews, ) Chronic respiratory failure On home O2 JESSEE (obstructive sleep apnea) Asthma CHF (congestive heart failure) Systolic Cataracts, both eyes Pulmonary hypertension Kyphoscoliosis Acute respiratory failure with hypoxia and hypercapnia HTN (hypertension) with goal to be determined History of ovarian cyst Diverticulitis History of pneumonia Bronchitis DVT (deep venous thrombosis) Both legs after a trip to [place] Surgical History Surgical History (Updated 04/15/23 @ 11:01 by Ana Novak, ELLIOTT) Hx of excision of mass 1. Excision of 1.5 cm left upper back cyst 2. Excision of 1.2 cm right upper back cyst 03/22/23 [facility] History of surgery on arm lt. 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 Her is the power contracts attorney. She desires to be a full code. She has 3 children. Lifelong nonsmoker. No alcohol. No illicit drugs. Lives with her Smoking status: Never smoker Second hand tobacco smoke exposure: No Alcohol intake: current Drinks per week: 1 Substance use: never Living arrangements: with family Additional living arrangements comments: [place] Occupation/Education: retired Gender identity (if verbalized by the patient): Female Spiritual care concerns: No (3-4 GLASSES/MONTH) Agree to blood products: Yes Anes - Eval Final PreProcedure Day of Procedure 10/07/24 08:09 Patient weight: obese Heart: regular rate and rhythm Lungs: clear to auscultation Airway: Mallampati scale class III Neurological: alert and oriented Last oral intake: >/= 8 hours ASA classification: IV Emergent: no Anesthetic plan: proceed Anesthesia type and monitoring: general GIVS and standard monitoring Results Review: All pre-operative results and documents have been reviewed as part of the pre- operative evaluation. Informed Consent: The patient's anesthetic plan and its attendant risks and benefits were discussed with the patient/family/POA. Questions were solicited and answers provided to the satisfaction of the patient/family/POA.
[2024-10-07 10:43] VITALS: BP 140/70; PULSE 79; RESP 16; TEMP 36.5; O2SAT 98; BMI 36.0
[2024-10-07] MEDS: LACTATED RINGERS 1,000 ML 30 ML IV CONT (11:10)
[2024-10-07] MEDS: ACETAMINOPHEN 500 MG TABLET 1000 MG PO (11:15)
[2024-10-07] MEDS: ceFAZolin 2 GM in SODIUM CHLORIDE 0.9% IV 50 ML 100 ML IVPB (13:37)
[2024-10-07] MEDS: LIDO 1%/EPINEPHRINE 1:100,000 50 ML VIAL 20 ML INFILTRATE (13:58)
[2024-10-07] MEDS: BUPivacaine HCL 0.5% 10 ML AMP 20 ML INFILTRATE (13:59)
[2024-10-07 14:07] VITALS: BP 111/51; PULSE 82; RESP 16; O2SAT 100
[2024-10-07 14:35] VITALS: BP 118/57; PULSE 75; O2SAT 96
[2024-10-07 15:05] VITALS: BP 151/88; PULSE 67; O2SAT 100
== END 2024-10-07 15:19 | disposition home or self-care (01) ==
PROVIDERS: PCP Internal Medicine; Visit Provider Plastic Surgery
PROC: 01N54ZZ Release Median Nerve, Percutaneous Endoscopic Approach (ICD-10-PCS; CPT 29848; principal; 2024-10-07 12:30)
DX: G56.22 Lesion of ulnar nerve, left upper limb (principal); G56.02 Carpal tunnel syndrome, left upper limb; I11.0 Hypertensive heart disease with heart failure; I50.9 Heart failure, unspecified; I27.20 Pulmonary hypertension, unspecified; G47.33 Obstructive sleep apnea (adult) (pediatric); J45.909 Unspecified asthma, uncomplicated; J96.21 Acute and chronic respiratory failure with hypoxia; J96.22 Acute and chronic respiratory failure with hypercapnia; M41.9 Scoliosis, unspecified; E66.9 Obesity, unspecified; Z68.36 Body mass index [BMI] 36.0-36.9, adult; Z79.51 Long term (current) use of inhaled steroids; Z79.82 Long term (current) use of aspirin; Z79.85 Long-term (current) use of injectable non-insulin antidiabetic drugs; Z79.891 Long term (current) use of opiate analgesic; Z99.81 Dependence on supplemental oxygen; Z98.890 Other specified postprocedural states; Z98.51 Tubal ligation status; Z87.19 Personal history of other diseases of the digestive system; Z86.718 Personal history of other venous thrombosis and embolism; Z80.3 Family history of malignant neoplasm of breast; Z82.49 Family history of ischemic heart disease and other diseases of the circulatory system
CPT/HCPCS: 64718; 29848; J0690; A9270; J2004; J2704; J3010; J7120

== ENCOUNTER 2024-11-26 10:51 | Outpatient (CLI) | payer MEDICARE, SELFPAY ==
--- OUTSIDE RECORDS SUMMARY | 2024-11-25 09:51 | XMS_ITS | Encounter Summary ---
Author Organization [facility] Address [address] [place] [address] Phone Care Team Providers Care Mandolin Repairer Name Role Phone Sreedhar Ortega MD Primary Care Provider [phone] Jacobo Becker MD Unavailable [phone] Bill Ortega MD Unavailable [phone] Bebe Loredo MD Unavailable Luis A Hernandez MD Unavailable [phone] Reason for Referral * Procedure (Routine) - Closed Specialty Diagnoses / Procedures Referred By Seda hernandez Referred To Contact Diagnoses Chronic obstructive pulmonary disease, unspecified COPD type (HCC) Procedures Pulmonary Function Test -[facility] PFT [facility]- CAM-8D; Spirometry, Oxygen Assessment Titration Serina Frausto NP [address] [place] [address] Phone: tel: fax: Referral ID Status Reason Start Date Expiration Date Visits Re quested Visits Authorized [id number] Closed 05/13/2024 06/12/2025 1 1 Reason for Visit * Procedure (Routine) - Closed Specialty Diagnoses / Procedures Referred By Contdroys t Referred To Contact Diagnoses Chronic obstructive pulmonary disease, unspecified COPD type (HCC) Procedures Pulmonary Function Test -[facility]FT [facility]- CAM-8D; Spirometry, Oxygen Assessment Titration Serina Frausto, JERRY [address] [place] [address] Phone: tel: fax: Referral ID Status Reason Start Date Expiration Date Visits Re quested Visits Authorized [id number] Closed 05/13/2024 06/12/2025 1 1 Encounter Details Date Type Department Care Team (Latest Contact Info) Description 11/25/2024 9:51 AM CDT - 11/25/2024 11:59 PM CDT Hospital Encounter [facility] Medicine Pulmonary [address] [place] [id number] Mixed obstructive and restrictive ventilatory defect Discharge Disposition: Discharge to home or self care Social History Tobacco Use Types Packs/Day Years [...] on file documented as of this encounter Medications at Time of Discharge albuterol HFA (PROVENTIL HFA,VENTOLIN HFA,PROAIR HFA) 90 mcg/actuation inhalerIndicatio ns:Acute Asthma Attack Inhale 2 puffs every 4 hours aspirin 325 mg tabletIndication s:prevention of thrombosis Take 1 tablet (325 mg total) by mouth face worker before breakfast azithromycin (ZITHROMAX) 250 mg tablet 11/23/2024 calcium citrate 250 mg calcium tablet tabletIndication s:Hypocalcemia Prevention Take 1 tablet (250 mg total) by mouth face worker before breakfast cholecalciferol, vitamin D3, (VITAMIN D3 ORAL) Take 1 tablet by mouth face worker before breakfast furosemide (LASIX) 20 mg tabletIndication s:Edema,hyperten yvonne Take 3 tablets (60 mg total) by mouth face worker before breakfast 3 12/03/2017 furosemide (LASIX) 40 mg tablet 04/16/2022 HYDROcodone-acet aminophen (NORCO) 5-325 mg per tablet 11/23/2024 Klor-Con M10 10 mEq CR tablet Take 1 tablet/capsule (10 mEq total) by mouth daily 01/22/2023 loratadine (CLARITIN) 10 mg tabletIndication s:Allergic Rhinitis Take 2.5 tablets (25 mg total) by mouth face worker before breakfast losartan (COZAAR) 25 mg tabletIndication s:hypertension Take 1 tablet (25 mg total) by mouth face worker before breakfast metoprolol XL (TOPROL-XL) 25 mg extended release tabletIndication s:hypertension Take 0.5 tablets (12.5 mg total) by mouth face worker before breakfast 45 tablet 3 04/17/2022 SEMAGLUTIDE SUBQ 09/12/2024 simethicone (MYLICON) 125 mg chewable tablet Take 1 tablet (125 mg total) by mouth every 6 (six) hours as needed for flatulence 30 tablet 3 11/25/2024 traMADoL (ULTRAM) 50 mg tablet 50 MG ORALLY EVERY 6 HOURS NEEDED FOR PAIN 10/07/2024 documented as of this encounter Discharge Disposition Disposition Code Departure Means Destination Discharge to home or self care documented in this encounter Plan of Treatment Not on file documented as of this encounter Procedures Procedure Name Priority Date/Time Associated Diagnosis Comments PULMONARY FUNCTION TEST (PFT) Routine 11/25/2024 10:19 AM CDT Mixed obstructive and restrictive ventilatory defect documented in this encounter Results * Pulmonary Function Test - (11/25/2024 10:19 AM CDT) FVC PRE 1.48 L [facility] FVC %PRE PRED 51 % [facility] FEV1 PRE 1.15 L [facility] FEV1 %PRE PRED 51 % [facility] FEV1/FVC PRE 77.7 % [facility] Anatomical Region Laterality Modality PFT 11/25/2024 9:56 AM CDT Narrative 11/25/2024 7:26 PM CDT Table formatting from the original result was not included. [facility] Division of Pulmonary & Critical Care Medicine [address] [place] [address]; [place] [address]; [place] [id number]; [phone] Pulmonary Function Laboratory Pulmonary Stress Test Simple/Oxygen Assessment Patient: Lucita Vallejo Date: 11/25/2024 : 1955 Ht: 65.5 IN Wt: 216 LBS Time (min) Distance (ft)/ Chiang O2 L/M SpO2 HR Diony* BP FEV1 % Pred Rest: RA 99 82 0 96/66 1.07 47 % Walk/Bike: 1 RA 90 96 0 2 RA/1 88/97 98 0 3 1 94 99 0 4 1 96 100 0 5 1 95 101 0 6 min 0 sec 1 92 100 0 Recovery: 1 1 100 93 0 124/68 1.15 51% 3 1 100 91 0 *Diony rate of perceived exertion (1-10 dyspnea scale) Federico, CHEST 2003; 123:[id number] Walk Test Summary: Six Minute Walk Distance: 985 ft Six-minute Walk Work [distance (m) x body wt (kg)]: 01836 kg.m (normal >60,000kg.m) Oxygen required to maintain SpO2 greater than 90% during six minutes of walkin L/M Comments: PATIENT WALKED WITH HER CANE. PATIENT REQUESTED TO START O2 ON 1 L/M. Interpretation: Breathing room air, SpO2 is normal at rest and during exercise sufficient to increase pulse, SpO2 falls to hypoxemic levels. On this basis, SpO2 is adequate at rest breathing room air and while walking breathing supplemental O2 at 1 L/min. This level of exercise is associated with no significant change of FEV1. By signing this report, the attending pulmonary physician certifies that he/she has personally reviewed and interpreted the graphic and numerical data associated with this pulmonary function study and has reviewed and /or edited a preliminary draft report and agrees with the written final report. PFT performed at:->[facility] Adult PFT Lab- CAM-8D Procedure:->Spirometry Procedure:->Oxygen Assessment Titration Pulmonary Function Test Interpretation SPIROMETRY: There is a decrease in expiratory airflow at middle lung volumes. The FEV1 and FVC are reduced in a pattern suggestive of a restrictive abnormality. The inspiratory loop is appropriate for the expiratory flow abnormality. PULSE OXIMETRY: See Oxygen Assessment/Cardiopulmonary Exercise Study-Simple Impression: There is a moderate restrictive ventilatory defect. However, measurement of lung volumes is suggested to confirm this if clinically indicated. Compared with most recent study, there has been no significant interval change. The attending pulmonary physician certifies a physician presence in the [facility] Suite during the administration of aerosolized bronchodilator. The attending pulmonary physician certifies that he/she has reviewed and interpreted the graphic and numerical data of this pulmonary function study and agrees with the written final report. The lower limit of normal for PaO2 and %HbO2 is age dependent. However, the [facility] Pulmonary Function Laboratory defines hypoxemia as a PaO2 <56 mm Hg or a %HbO2 <89%. Starting on February of 2024 the [facility] Pulmonary Function Laboratory utilizes race neutral GLI Global normative equations. Serina Hernandez Lisbet RESEARCH AND DEVELOPMENT CHEMIST PFT ORDERABLES Final Res ult documented in this encounter Visit Diagnoses Diagnosis Mixed obstructive and restrictive ventilatory defect documented in this encounter Care Teams Mandolin Repairer Relationship Specialty Start Date End Date Sreedhar Ortega MD [address] [place] [address] PCP - General Internal Medicine 12/14/21 Jacobo Becker MD [address] [facility] [address] [place] [address] Referring Physician Pulmonary Disease 05/05/22 Bill Ortega MD [address] [facility] [address] [place] [address] Consulting Physician Cardiology 05/05/22 Bebe Loredo MD [address] [facility] NEUROLOGY SLEEP [facility] [address] [place] [address] Consulting Physician Sleep Medicine 07/27/22 Luis A Hernandez MD [address] [place] [id number] Consulting Physician Cardiovascular Disease 05/13/24 documented as of this encounter
--- OUTSIDE RECORDS SUMMARY | 2024-11-25 11:00 | XMS_ITS | Encounter Summary ---
Author Organization [facility] Address [address] [place] [address] Phone Care Team Providers Care Service Worker Helper Name Role Phone Sreedhar Ortega MD Primary Care Provider [phone] Jacobo Becker MD Unavailable [phone] Bill Ortega MD Unavailable [phone] Bebe Loredo MD Unavailable Luis A Hernandez MD Unavailable [phone] Reason for Referral * Procedure (Routine) - Authorized Specialty Diagnoses / Procedures Referred By Contac t Referred To Contact Diagnoses Mixed obstructive and restrictive ventilatory defect Procedures Pulmonary Function Test -[facility] Adult PFT Lab- CAM-8D; Oxygen Assessment Titration, Spirometry Serina Frausto NP [address] [place] [address] Phone: tel: fax: Referral ID Status Reason Start Date Expiration Date V isits Requested Visits Authorized [id number] Authorized 11/25/2024 12/25/2025 1 1 Encounter Details Date Type Department Care Team (Latest Contact Info) Description 11/25/2024 11:00 AM CDT Office Visit [facility] Medicine Pulmonary [facility] [facility] 8th [place] [address] [place] [address] Serina Frausto NP [address] [place] [address] 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); Chronic obstructive pulmonary disease, unspecified COPD type (HCC); Obesity, morbid; Immunization counseling; Seasonal allergies; Asthma in adult, mild persistent, uncomplicated Social History Tobacco Use Types Packs/Day Years [...] on file documented as of this encounter Last Filed Vital Signs Vital Sign Reading Time Taken Comments Blood Pressure 94/63 11/25/2024 10:37 AM CDT Pulse 86 11/25/2024 10:37 AM CDT Temperature 36.3 C (97.4 F) 11/25/2024 10:37 AM CDT Respiratory Rate 18 11/25/2024 10:37 AM CDT Oxygen Saturation 97% 11/25/2024 10:37 AM CDT Inhaled Oxygen Concentration - - Weight 98 kg (216 lb) 11/25/2024 10:37 AM CDT Height 166.4 cm (5' 5.5) 11/25/2024 10:37 AM CD T Body Mass Index 35.4 11/25/2024 10:37 AM CDT documented in this encounter Patient Instructions * Patient Instructions* Serina Frausto NP - 11/25/2024 11:00 AM CDT Recommend COVID -19, Flu, Tdap, Shingles, RSV documented in this encounter Ordered Prescriptions Prescription Sig Dispense Quantity Refills Last Filled Start Date End Date simethicone (MYLICON) 125 mg chewable tablet Take 1 tablet (125 mg total) by mouth every 6 (six) hours as needed for flatulence 30 tablet 3 11/25/2024 documented in this encounter Progress Notes * Serina Frausto NP - 11/25/2024 11:00 AM CDT [facility] LUNG CENTER, PULMONARY MEDICINE, [address] [place] [address], 8TH FLOOR, [facility], [address] [place], [place] [id number] PATIENT NAME: Lucita Vallejo : 1955 ALESHIA: 11/25/2024 PROBLEM LIST: Restrictive ventilatory defect, 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 Loredo. Chronic hypoxemic respiratory failure Kyphoscoliosis History of DVT in 2018, status post six months of Eliquis. Now on aspirin 325 mg daily INTERVAL HISTORY: Lucita Vallejo is a 69 y.o. female patient of Dr. Becker with past medical history of bilateralDVT on daily aspirin 325 mg, CHF, S/p stent of the right iliac vein stent, COPD, JESSEE on Astral PSSVwith 1.25 liters bleed-in oxygen at night, dyslipidemia, and obesity returns for follow-up today. She was last seen in the clinic on 05/13/2024. At that time, the patient reported improvement in breathing and exercise tolerance. She was complaint with her medications and only used prn albuterol for her mild intermittent asthma. She tried several inhalers in the past including Symbicort, Incruse, and Trelegy. She stopped taking them due to feeling more constriction in her breathing. Required 1 liter supplemental oxygen on her 6mw, used a portable oxygen concentrator and monitored SpO2. 05/13/[address] was clear, stable main pulmonary artery 3.2 cm in caliber. Today Lucita presents in clinic with her . She is feeling well. Reports seasonal allergies are affecting her and is taking claritin daily for sinus congestion and runny nose. Compliant with Astral and oxygen at night and follows Dr Loredo. She has been walking regularly since February. On O2 1 LPM for exertion since 2021 and Astral with 1 LPM for sleep. She has been taking semaglutide injections for weight loss and has lost 5 pounds in 8 weeks. Denies fever, chills, headache, dizziness, sorethroat, shortness of breath at rest, cough, chest pain, nausea, GERD, vomiting, diarrhea, constipation, and edema. ALLERGIES: Chicken derived, Ibuprofen, Penicillin G, Cat dander, Dog dander, Egg derived, Feathers, Grass Pollen, House Dust, Mold, Ragweed pollen MEDICATIONS: albuterol HFA inhaler Inhale 2 puffs q 4 hrs prn aspirin 325 mg Take 1 tablet po daily calcium citrate 250 mg Take 1 tablet po daily cholecalciferol, vitamin D3 Take 1 tablet po daily furosemide (LASIX) 20 mg Take 3 tablets po daily Klor-Con M10 10 mEq Take 1 tablet po daily loratadine (CLARITIN) 10 mg Take 2.5 tablets po daily losartan (COZAAR) 25 mg Take 1 tablet po daily metoprolol XL 25 mg Take 0.5 tablets po daily Hydrocodone-acetamin 5-325 mg Take 1 tablet po q 6 hrs prn SEMAGLUTIDE SUBQ Inject sq weekly traMADoL (ULTRAM) 50 mg Take 1 tablet po q 6 hrs prn IMMUNIZATIONS: Recommend COVID -19, Flu, Tdap, Shingles, RSV Up to date: Pneumococcal Review of Systems: All systems are reviewed and negative except as above in Interval History. Objective VITALS: 94/63; P 86; RR 18; 97.4F; 216 pounds; 5'5.5; BMI 35.4 Wt Readings from Last 3 Encounters: 11/25/24 98 kg (216 lb) 11/11/24 99.8 kg (220 lb) 05/13/24 99.8 kg (220 lb) Physical Exam: General: Cooperative female sitting in no acute distress. HEENT: Normocephalic, atraumatic. Neck: No adenopathy. Trachea midline. Chest: Symmetric expansion. Lungs: Nonlabored breathing. Clear to auscultation bilaterally with no wheezes Heart: Regular rate and rhythm. S1, S2. Abdomen: Benign. Extremities: No edema, cyanosis, or clubbing. Neurologic: Grossly nonfocal. Alert and oriented x3. Skin: Warm and dry. No rash on exposed skin. Musculoskeletal: No obvious joint deformity. Moves all extremities. Psychiatric: Euthymic. PULMONARY FUNCTIONS TESTING DATA: DATA REVIEW: Spirometry: date FVC (L), % FEV1 (L), % FEV1/FVC (%) 11/25/2024 1.48, 51% 1.15, 51% 78% 11/13/2023 1.32, 43% 1.02, 43% 77% 10/03/2022 1.38, 44% 1.08, 45% 78% 04/17/2022 1.26, 40% 0.99, 41% 79% Oxygen assessment: 6 MINUTE WALK: Patient ambulated 985 feet in 6 minutes. Resting oxygen saturation was 99% on RA. Oxygen saturationnadir was 88%. Patient required 1LPM of supplemental O2 with ambulation. Initial HR was 82. Concluding HR was 100. Concluding Diony score was 0. IMPRESSION & PLAN Lucita Vallejo is a pleasant 69 y.o. female with pmh bilateral DVT, CHF, S/p stent of the right iliac vein stent, JESSEE on Astral and oxygen at night, dyslipidemia, and obesity reports sinus congestionand runny nose. She is taking daily Claritin. She is doing well otherwise and appears clinically stable on exam. Spirometry is slightly improved and she requires 1 liter oxygen on her 6 mw. We updated her contact information, physician list, allergies, medications, immunizations. We reviewed testing and medications. She was not interested in starting an inhaler. 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 Reports improvement in breathing and exercise tolerance. History of mild intermittent asthma:continue albuterol on as-needed basis. Chronic mixed respiratory failure, on nocturnal support at the direction of Dr. Loredo. Required 1 liter supplemental oxygen on her 6mw, has a portable oxygen concentrator and monitors SpO2. Immunizations: Recommend COVID -19, Flu, Tdap, Shingles, RSV. Up to date: Pneumococcal Seasonal allergies: Continue to use OTC Flonase and zyrtec RTC; HEALTH AND SAFETY CONSULTANT, 6 months, kinjal, 6mw. Physician Discussion: Patient's questions and concerns were discussed and answered. Patient will return to clinic in 6 months for follow-up unless more immediate concerns present. I have seen and examined the patient. My total encounter time on 11/25/2024 was 35 minutes which was spent in the activities documented in the note. This includes time spent prior to the visit and after the visit in direct care of the patient. This time does not include time spent in any separatelyreportable services. Serina Frausto, DNP, BLOOD BANK SUPERVISOR, AGACNP-BC, CCRN Nurse Practitioner [facility] Department of Medicine Pulmonary and Critical Care [facility] Cosigned by Jacobo Becker MD at 11/25/2024 6:03 PM CDT documented in this encounter Plan of Treatment Scheduled Orders Name Type Priority Associated Diagnoses Orde r Schedule Pulmonary Function Test -[facility] Adult PFT [facility]- CAM-8D; Oxygen Assessment Titration, Spirometry PFT Routine Mixed obstructive and restrictive ventilatory defect Expected: 05/26/2025, Expires: 11/25/2025 documented as of this encounter Visit Diagnoses Diagnosis Mixed obstructive and restrictive ventilatory defect- Primary Chronic obstructive pulmonary disease, unspecified COPD type (HCC) Obesity, morbid Morbid obesity Immunization counseling Seasonal allergies Allergic rhinitis, cause unspecified Asthma in adult, mild persistent, uncomplicated documented in this encounter Historical Medications * This list may reflect changes made after this encounter. azithromycin (ZITHROMAX) 250 mg tablet 11/23/2024 traMADoL (ULTRAM) 50 mg tablet 50 MG ORALLY EVERY 6 HOURS NEEDED FOR PAIN 10/07/2024 HYDROcodone-aceta minophen (NORCO) 5-325 mg per tablet 11/23/2024 SEMAGLUTIDE SUBQ 09/12/2024 added in this encounter Care Teams Service Worker Helper Relationship Specialty Start Date End Date Sreedhar Ortega MD [address] [place] [address] PCP - General Internal Medicine 12/14/21 Jacobo Becker MD [address] [place] [address] Referring Physician Pulmonary Disease 05/05/22 Bill Ortega MD [address] [facility] [address] [place] [address] Consulting Physician Cardiology 05/05/22 Bebe Loredo MD [address] [facility] NEUROLOGY SLEEP MED, [facility] [address] [place], [place] [id number] Consulting Physician Sleep Medicine 07/27/22 Luis A Hernandez MD [address] [facility] [address] [address] Consulting Physician Cardiovascular Disease 05/13/24 documented as of this encounter
--- NOTE | ~2024-11-26 | XR_ITS ---
EXAMINATION: XR chest 2V, 11/26/2024 11:15 CDT HISTORY: COPD COMPARISON: No comparisons available. Technique: 2 views obtained. Findings: COPD changes. Small basilar infiltrates with trace effusions. No pneumothorax. Heart is normal size. Mediastinal and hilar contours are within normal limits. Bony thorax no acute abnormality. Impression: Early bilateral pneumonia Reviewed, dictated and finalized at location P. Impression: Early bilateral pneumonia
[2024-11-26 11:19] LABS: Hematocrit 44.0 % (35.0-42.0); Hemoglobin 13.6 g/dL (11.7-13.8); Immature Granulocyte Percent A 0.2 % (0.0-0.0); Lymphocytes Absolute Auto 1.27 K/mm3 (1.10-4.50); Mean Corpuscular HGB Conc 30.9 g/dL (32-36); Mean Corpuscular Hemoglobin 27.9 pg (27.0-31.0); Mean Corpuscular Volume 90.2 fL (78.0-102.0); Nucleated Red Blood Cells Absolute Auto 0.00 K/mm3 (0.00-0.00); Nucleated Red Blood Cells Perc 0.0 % (0-0.0); Platelet Count Result 188 K/mm3 (150-420); Red Blood Count 4.88 M/mm3 (4.20-5.40); White Blood Count 9.2 K/mm3 (4.8-10.8)
--- OUTSIDE RECORDS SUMMARY | 2024-11-26 11:25 | XMS_ITS | Encounter Summary ---
Author Organization [facility] Address [address] [place] [address] Phone Care Team Providers Care Dredge Master Name Role Phone Bruce Bush MD Primary Care Provider [phone] Sreedhar Ortega MD Primary Care Provider [phone] Jacobo Becker MD Unavailable [phone] Bill Ortega MD Unavailable [phone] Bebe Loredo MD Unavailable Luis A Hernandez MD Unavailable [phone] Encounter Details Date Type Department Care Team [...] on filedocumented in this encounter Care Teams Dredge Master Relationship Specialty Start Date End Date Bruce Bush MD [address] [place] [address] PCP - General Family Medicine 05/24/17 12/13/21 Sreedhar Ortega MD [address] [place] [address] PCP - General Internal Medicine 12/14/21 Jacobo Becker MD [address] [facility] [address] [place] [address] Referring Physician Pulmonary Disease 05/05/22 Bill Ortega MD [address] [facility] [address] [place] [address] Consulting Physician Cardiology 05/05/22 Bebe Loredo MD [address] [facility] NEUROLOGY SLEEP [facility] [address] [place] [address] Consulting Physician Sleep Medicine 07/27/22 Luis A Hernandez MD [address] [facility] [address] [address] Consulting Physician Cardiovascular Disease 05/13/24 documented as of this encounter
--- OUTSIDE RECORDS SUMMARY | 2024-11-26 11:25 | XMS_ITS | Data Portability ---
Author Organization [facility] [place] Address [address] [place] [address] Assessment No assessment recorded. Plan of Treatment [...] Name and Address Organization Details Recorded Time Pain of breast 54945060 Active 2010 Mastodynia ;Practice ID: 0001 Not Available [facility] 0 21:54:27 Vitamin D deficienc y 35956017 Active 2010 Unspecifie d vitamin d deficiency ;Practice ID: 0001 Not Available [facility] 0 21:54:24 Disorder of bone and articular cartilage 395199424 Active 2010 Osteopenia ;Practice ID: 0001 Not Available [facility] 0 21:54:24 Leukocyto sis 907617521 Active 2012 LEUKOCYTOS IS NOS;Practi ce ID: 0001 Not Available [facility] 0 21:54:24 Benign essential hypertens ion 1457806 Active 2012 Benign essential hypertensi on;Practic e ID: 0001 Not Available [facility] 0 21:54:24 Specializ ed medical examinati on Active 2012 Routine gynecologi caitlyn examinatio n;Practice ID: 0001 Not Available [facility] 0 21:54:[address] Concept Active 2015 Encntr for bi manager exam (general) (routine) w abnormal findings;P ractice ID: 0001 Not Available [facility] 0 21:54:[address] Concept Active 2017 Encntr for general adult medical exam w/o abnormal findings;P ractice ID: 0001 Not Available [facility] 0 21:54:[address] Concept Active 2017 Encntr for bi manager exam (general) (routine) w/o abn findings;P ractice ID: 0001 Not Available [facility] 0 21:54:24 Screening for malignant neoplasm of rectum Active 2017 Encounter for screening for malignant neoplasm of rectum;Pra ctice ID: 0001 Not Available [facility] 0 21:54:[address] Concept Active 2017 Anxiety disorder, unspecifie d;Practice ID: 0001 Not Available [facility] 0 21:54:25 Body mass index 30+ - obesity 274876565 Active 2017 Body mass index (BMI) 36.0-36.9, adult;Nilay rded Elsewhere: No Locatio n: [facility] rce: EHR Chroni c: N Practice ID: 0001 Billa ble Time: 11:30:00 AM Not Available [facility] 0 21:54:26 Evaluatio n finding Active 2017 Oth abn and inconclusi ve findings on dx imaging of breast;Rec orded Elsewhere: No Locatio n: [facility] Barbara rce: EHR Chroni c: N Practice ID: 0001 Billa ble Time: 11:50:43 AM Not Available [facility] 0 21:54:25 Screening for malignant neoplasm of cervix Active 2019 Encounter for screening for malignant neoplasm of cervix;Pra ctice ID: 0001 Not Available [facility] 0 21:54:24 Bone density finding 996757336 Active 2019 osteopenia ;Recorded Elsewhere: No Locatio n: [facility] rce: EHR Chroni c: N Practice ID: 0001 Billa ble Time: 02:30:00 PM Not Available [facility] 0 21:54:27 Disorder of breast 04078257 Active 2019 Disorder of breast, unspecifie d;Practice ID: 0001 Not Available [facility] 0 21:54:24 Breast lump 54866181 Active 2019 Unspecifie d lump in unspecifie d breast;Rec orded Elsewhere: No Locatio n: [facility] rce: EHR Chroni c: N Practice ID: 0001 Billa ble Time: 12:41:53 PM Not Available [facility] 0 21:54:25 Problem Notes None recorded. Procedures Surgical History Date Name Laterality Status Provider Name and Address Organization Details Recorded Time [address] [facility] 08/19/2019 11:56:46 ligation of bilateral fallopian tubes completed [facility] 08/19/2019 11:55:53 Ovarian Cystectomy completed [facility] 08/19/2019 11:56:15 Imaging Results None recorded. Procedure Notes None recorded. Medical Equipment None Reported. Allergies Allergen ID Allergen Name Allergen Category Reaction Reaction Severity Criticality Documentation Date Start Date Code Code System Note Provider Name and Address Organization Details Recorded Time 1121 Product containin g penicilli n (product) medicatio n Not available Not available Not available 08/21/2019 21810 8001 SNMONI Th[facility] 0 14:36:09 Medications Name Sig Start Date Stop Date Status Note LastModified by Organization Details LastModified Time furosemid e 40 mg tablet 08/20 completed Not Available Not Available Not Available furosemid e 10 mg/mL injection solution inject 4 millilit er by intraven ous route over once active Prescrib ed Elsewher e: Yes Loca tion: Abhilash horn [facility] odify By: mateusz oHrn ncounter DateTime : 05/15/19 02:45:00 PM Not Available Not Available Not Available Evista 60 mg tablet take 1 tablet by oral route every day 04/03 completed Prescrib ed Elsewher e: Yes Loca tion: Abhilash horn [facility] odify By: juancho rodriguez DateTime : 12/06/19 11 06:59:33 PM Not Available Not Available Not Available Zoloft 50 mg tablet take 1 tablet by oral route every day 05/14 completed Prescrib ed Elsewher e: No Locat ion: Abhilash horn [facility] odify By: mateusz Horn ncounter DateTime : 04/30/19 18 11:30:00 AM Not Available Not Available Not Available losartan 25 mg tablet take 1 tablet by oral route every day active Prescrib ed Elsewher e: Yes Loca tion: Abhilash horn [facility] odify By: parag rodriguez DateTime : 04/07/19 02:30:00 PM Not Available Not Available Not Available furosemid e 20 mg tablet 08/20 completed Not Available Not Available Not Available gabapenti n 100 mg capsule take 3 capsule by oral route 3 times every day 05/18 completed Prescrib ed Elsewher e: Yes Loca tion: Abhilash horn [facility] odify By: juancho rodriguez DateTime : 04/03/19 13 10:30:00 AM Not Available Not Available Not Available metoprolo l succinate ER 25 mg tablet,ex tended release 24 hr active Not Available Not Available Not Available Vitamin D2 1,250 mcg (50,000 unit) capsule take 1 capsule ([id number] ITS) by oral route every week 04/07 completed Prescrib ed Elsewher e: No Locat ion: Abhilash horn [facility] odify By: parag rodriguez DateTime : 06/29/19 18 01:02:22 PM Not Available Not Available Not Available Cece Aspirin 325 mg tablet take 1 tablet by oral route every day active Prescrib ed Elsewher e: Yes Loca tion: Abhilash horn [facility] odify By: parag rodriguez DateTime : 04/07/19 02:30:00 PM Not Available Not Available Not Available metoprolo l tartrate 5 mg/5 mL intraveno us solution inject 5 millilit er by intraven ous route every 2 minutes for 3 doses active Prescrib ed Elsewher e: Yes Loca tion: Abhilash horn [facility] odify By: parag Quick ter DateTime : 04/07/19 02:30:00 PM Not Available Not Available Not Available Benadryl 25 mg capsule take 2 capsule by oral route 4 - 6 hours as needed 01/29 completed Prescrib ed Elsewher e: Yes Loca tion: Abhilash horn [facility] odify By: ary curran DateTime : [...] Elsewher e: Yes Loca tion: Abhilash horn [facility] odify By: bea rodriguezuntveronica DateTime : 12/08/19 01:00:00 PM Not Available Not Available Not Available ProAir HFA 90 mcg/actua tion aerosol inhaler inhale 2 puff by inhalati on route every 4 - 6 hours as needed active Prescrib ed Elsewher e: Yes Loca tion: Abhilash horn [facility] odify By: parag rodriguez DateTime : 04/07/19 02:30:00 PM Not Available Not Available Not Available Symbicort 160 mcg-4.5 mcg/actua tion HFA aerosol inhaler inhale 2 puff by inhalati on route 2 times every day in the morning and evening 05/14 completed Prescrib ed Elsewher e: Yes Loca tion: Abhilash horn [facility] odify By: mateusz rodriguezuntveronica DateTime : 04/07/19 02:30:00 PM Not Available Not Available Not Available Actonel 150 mg tablet take 1 tablet (150MG) by oral route every month 04/29 completed Prescrib ed Elsewher e: No Locat ion: [facility] justina [facility] odify By: bea curran DateTime : 05/06/19 14 10:34:10 AM Not Available Not Available Not Available loratadin e (bulk) 100 % powder active Prescrib ed Elsewher e: Yes Loca tion: [facility] [address] odify By: parag rodriguez DateTime : 04/07/19 02:30:00 PM Not Available Not Available Not Available potassium chloride ER 20 mEq tablet,ex tended release 08/20 completed Not Available Not Available Not Available Spiriva Respimat 1.25 mcg/actua tion solution for inhalatio n inhale 2 puff by inhalati on route every day 05/14 completed Prescrib ed Elsewher e: Yes Loca tion: [facility] [address] odify By: mateusz curran DateTime : 04/07/19 02:30:00 PM Not Available Not Available Not Available Trelegy Ellipta 100 mcg-62.5 mcg-25 mcg powder for inhalatio n inhale 1 puff by inhalati on route every day at the same time each day active Prescrib ed Elsewher e: Yes Loca tion: [facility] [address] odify By: mateusz curran DateTime : 05/15/19 02:45:00 PM Not Available Not Available Not Available Vitals Date Recorded Body height Body mass index (BMI) Body weight Systolic And Diastolic Provider Name and Address Organization Details Last Updated DateTime 08/21/2019 2011.68 cm 0.2 kg/m2 08722.66 g 108/69 mm[Hg] Yin [facility] 08/21/2019 14:35:58 Social History None recorded. Functional Status [...] Diagnosis SNOMED-CT Code Diagnosis ICD10 Code Diagnosis IMO Codes Diagnosis Note 9678 Courtney Dos Santos [facility] [address] [address] 08/21/2019 14:29:09 08/21/2019 15:09:44 Mass of left breast 8182411889 3395567 N63.20 Patient is a 64yo white female [...] Name 05/14/2020 1 [place] Lucita Vallejo [id number] 08/21/2019 2 [employer] (MEDICARE SUPPLEMENT) Lucita Vallejo [id number] Notes Date Note Type Note Provider Name and Address Organization Details Recorded Time 08/21/2019 text/html ROS as noted in the HPI Patient is a 64yo white female with [...] Courtney Dos Santos, MELISSA- [address], [place], [address], [facility] 08/21/2019 15:01:23 OBGyn Episode Ob Episode Information Episode Created Date Number of Fetuses Patient Bloodtype Patient rh Status Prepregnancy Weight lbs Domestic Partner Domestic Partner Phone Father Name Solar Energy System Installer Helper Status 08/21/19 20 1 CLOSED Fetus Data [...] Domestic Partner Domestic Partner Phone Father Name Solar Energy System Installer Helper Status 08/21/19 20 1 CLOSED Fetus Data [...] Domestic Partner Domestic Partner Phone Father Name Solar Energy System Installer Helper Status 08/21/19 20 1 CLOSED Fetus Data [...]
--- OUTSIDE RECORDS SUMMARY | 2024-11-26 11:25 | XMS_ITS | Encounter Summary ---
Author Organization [facility] Address [address] [place] [address] Phone Care Team Providers Care [employer] Spanish Teacher Name Role Phone Bruce Bush MD Primary Care Provider [phone] Sreedhar Ortega MD Primary Care Provider [phone] Jacobo Becker MD Unavailable [phone] Bill Ortega MD Unavailable [phone] Bebe Loredo MD Unavailable Luis A Hernandez MD Unavailable [phone] Encounter Details Date Type Department Care Team [...] on filedocumented in this encounter Care Teams [employer] Spanish Teacher Relationship Specialty Start Date End Date Bruce Bush MD [address] [facility] [place] [address] PCP - General Family Medicine 05/24/17 12/13/21 Sreedhar Ortega MD [address] [place], [place] [id number] PCP - General Internal Medicine 12/14/21 Jacobo Becker MD [address] [facility] [address] [place] [address] Referring Physician Pulmonary Disease 05/05/22 Bill Ortega MD [address] [facility] [address] [place] [address] Consulting Physician Cardiology 05/05/22 Bebe Loredo MD [address] [facility] NEUROLOGY SLEEP [facility] [address] [place] [address] Consulting Physician Sleep Medicine 07/27/22 Luis A Hernandez MD [address] [facility] [address] [address] Consulting Physician Cardiovascular Disease 05/13/24 documented as of this encounter
--- OUTSIDE RECORDS SUMMARY | 2024-11-26 11:25 | XMS_ITS | Encounter Summary ---
Author Organization [facility] Address [address] [place] [address] Phone Care Team Providers Care It Sales Representative Name Role Phone Sreedhar Ortega MD Primary Care Provider [phone] Jacobo Becker MD Unavailable [phone] Bill Ortega MD Unavailable [phone] Bebe Loredo MD Unavailable Luis A Hernandez MD Unavailable [phone] Encounter Details Date Type Department Care [...] on filedocumented in this encounter Care Teams It Sales Representative Relationship Specialty Start Date End Date Sreedhar Ortega MD [address] [place] [address] PCP - General Internal Medicine 12/14/21 Jacobo Becker MD [address] [facility] [address] [place] [address] Referring Physician Pulmonary Disease 05/05/22 Bill Ortega MD [address] [facility] [address] [place] [address] Consulting Physician Cardiology 05/05/22 Bebe Loredo MD [address] [facility] NEUROLOGY SLEEP [facility] [address] [place] [address] Consulting Physician Sleep Medicine 07/27/22 Luis A Hernandez MD [address] [place] [address] Consulting Physician Cardiovascular Disease 05/13/24 documented as of this encounter
--- OUTSIDE RECORDS SUMMARY | 2024-11-26 11:25 | XMS_ITS | Clinical Summary ---
Author Organization [facility] Address [address] [place] [address] Care Team Providers Care Evp General Counsel Name Role Phone Sreedhar Ortega MD Primary Care Provider [phone] Active Problems Problem Noted Date Diagnosed Date Interstitial lung disease ([facility]/HCC HHS/HCC) 11/25 Social History Tobacco Use Types [...] Scan (General) 2019 COVID-19 Vaccine ( season) 2024 02/14/2022, 09/07/2021, 12/24/2020, Additional history exists Influenza Adult (#1) 2024 12/21/2021 DTaP, Tdap and Td Vaccines (2 - [...] age to complete this topic Insurance MEDICARE [facility] Care Teams Evp General Counsel Relationship Specialty Start Date End Date Sreedhar Ortega MD [address] [place] [address] PCP - General INTERNAL MEDICINE 10/19/22
--- OUTSIDE RECORDS SUMMARY | 2024-11-26 11:25 | XMS_ITS | Encounter Summary ---
Author Organization [facility] Address [address] [place] [address] Phone Care Team Providers Care Ferry Pilot Name Role Phone Sreedhar Ortega MD Primary Care Provider [phone] Jacobo Becker MD Unavailable [phone] Bill Ortega MD Unavailable [phone] Bebe Loredo MD Unavailable Luis A Hernandez MD Unavailable [phone] Encounter Details Date Type Department Care [...] on filedocumented in this encounter Care Teams Ferry Pilot Relationship Specialty Start Date End Date Sreedhar Ortega MD [address] [place] [address] PCP - General Internal Medicine 12/14/21 Jacobo Becker MD [address] [facility] [address] [place] [address] Referring Physician Pulmonary Disease 05/05/22 Bill Ortega MD [address] [facility] [address] [place] [address] Consulting Physician Cardiology 05/05/22 Bebe Loredo MD [address] [facility] NEUROLOGY SLEEP MED, [facility] [address] [place] [address] Consulting Physician Sleep Medicine 07/27/22 Luis A Hernandez MD [address] [place] [address] Consulting Physician Cardiovascular Disease 05/13/24 documented as of this encounter
--- OUTSIDE RECORDS SUMMARY | 2024-11-26 11:25 | XMS_ITS | Encounter Summary ---
Author Organization [facility] Address [address] [place] [address] Phone Care Team Providers Care Machine Welder Name Role Phone Bruce Bush MD Primary Care Provider [phone] Sreedhar Ortega MD Primary Care Provider [phone] Jacobo Becker MD Unavailable [phone] Bill Ortega MD Unavailable [phone] Bebe Loredo MD Unavailable Luis A Hernandez MD Unavailable [phone] Encounter Details Date Type Department Care Team [...] on filedocumented in this encounter Care Teams Machine Welder Relationship Specialty Start Date End Date Bruce Bush MD [address] [place] [address] PCP - General Family Medicine 05/24/17 12/13/21 Sreedhar Ortega MD [address] [place] [address] PCP - General Internal Medicine 12/14/21 Jacobo Becker MD [address] [facility] [address] [place] [address] Referring Physician Pulmonary Disease 05/05/22 Bill Ortega MD [address] [facility] [address] [place] [address] Consulting Physician Cardiology 05/05/22 Bebe Loredo MD [address] [facility] NEUROLOGY SLEEP MED, [facility] [address] [place] [address] Consulting Physician Sleep Medicine 07/27/22 Luis A Hernandez MD [address] [facility] [address] [place] [address] [address] Consulting Physician Cardiovascular Disease 05/13/24 documented as of this encounter
--- OUTSIDE RECORDS SUMMARY | 2024-11-26 11:25 | XMS_ITS | Clinical Summary ---
Author Organization [facility] [place] [address] Address [address] [place] [address] Care Team Providers Care Manager Completions Name Role Phone Sreedhar Ortega MD Primary Care Provider [phone] Jacobo Becker MD Unavailable [phone] Bill Ortega MD Unavailable [phone] Bebe Loredo MD Unavailable Luis A Hernandez MD Unavailable [phone] Allergies Active Allergy Reactions Criticality Noted Date Comments Cat Dander Unknown 04/11/2023 Chicken Derived Shortness of breath High 02/08/2015 Patient reports allergy was indicated from a skin test with Chief Physical Therapist when she was young. States she eats eggs now with no issues. May trigger an issue with her asthma Dog Dander Unknown 04/11/2023 Egg Derived Unknown 02/08/2015 Feathers Unknown 04/11/2023 Grass Pollen Unknown 04/11/2023 House Dust Unknown 04/11/2023 Ibuprofen Swelling Medium 06/17/2017 Mold Unknown 04/11/2023 Penicillin G Rash Medium 06/17/2017 Ragweed Pollen Unknown 04/11/2023 Medications loratadine (CLARITIN) 10 mg tabletIndicati ons:Allergic Rhinitis Take 2.5 tablets (25 mg total) by mouth asp developer before breakfast Active furosemide (LASIX) 20 mg tabletIndicati ons:Edema,hype rtension Take 3 tablets (60 mg total) by mouth asp developer before breakfast 3 8 Active losartan (COZAAR) 25 mg tabletIndicati ons:hypertensi on Take 1 tablet (25 mg total) by mouth asp developer before breakfast Active albuterol HFA (PROVENTIL HFA,VENTOLIN HFA,PROAIR HFA) 90 mcg/actuation inhalerIndicat ions:Acute Asthma Attack Inhale 2 puffs every 4 hours Active cholecalcifero l, vitamin D3, (VITAMIN D3 ORAL) Take 1 tablet by mouth asp developer before breakfast Active calcium citrate 250 mg calcium tablet tabletIndicati ons:Hypocalcem ia Prevention Take 1 tablet (250 mg total) by mouth asp developer before breakfast Active aspirin 325 mg tabletIndicati ons:prevention of thrombosis Take 1 tablet (325 mg total) by mouth asp developer before breakfast Active furosemide (LASIX) 40 mg tablet 3 Active metoprolol XL (TOPROL-XL) 25 mg extended release tabletIndicati ons:hypertensi on Take 0.5 tablets (12.5 mg total) by mouth asp developer before breakfast 45 tablet 3 3 Active Klor-Con M10 10 mEq CR tablet Take 1 tablet/capsule (10 mEq total) by mouth daily 3 Active SEMAGLUTIDE SUBQ 5 Active HYDROcodone-ac etaminophen (NORCO) 5-325 mg per tablet 5 Active traMADoL (ULTRAM) 50 mg tablet 50 MG ORALLY EVERY 6 HOURS NEEDED FOR PAIN 5 Active azithromycin (ZITHROMAX) 250 mg tablet 5 Active simethicone (MYLICON) 125 mg chewable tablet Take 1 tablet (125 mg total) by mouth every 6 (six) hours as needed for flatulence 30 tablet 3 5 Active Rybelsus 7 mg tablet Take 1 tablet (7 mg total) by mouth daily 4 11/12/19 25 Discontinu ed(Patient Reported) Active Problems Problem Noted Date Diagnosed Date 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 11/25/2024 Shortness of breath 05/13/2024 Chronic obstructive pulmonar y disease, unspecified COPD type 04/01/2023 Interstitial lung disease 10/03/2022 Chronic respiratory failure with hypoxia and hyp ercapnia 05/10/2022 Mild obstructive sleep apnea 05/10/2022 On home oxygen therapy 05/10/2022 Dermatochalasis of both upper eyelids 12/16/2021 Overview (12/16/2021): Added automatically from request for surgery [id number] 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 11/26 Overview (12/16/2021): Added automatically from request for surgery [id number] Deep vein thrombosis (DVT) 04/27/2018 Pulmonary hypertension Resolved Problems Problem Noted Date Diagnosed Date Resolved Date Lesion of right eyelid 12/16/202104/11 Overview (12/16/2021): Added automatically from request for surgery [id number] Lesion of left eyelid 12/16/20212023 Overview (12/16/2021): Added automatically from request for surgery [id number] Hypoxia 04/11/2023 Encounters Date Type Department Care Team Description 11/25/2024 11:00 AM CDT Office Visit [facility] Medicine Pulmonary [address] [facility] [address] [place] [address] [place] [address] Serina Frausto NP 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); Chronic obstructive pulmonary disease, unspecified COPD type (HCC); Obesity, morbid; Immunization counseling; Seasonal allergies; Asthma in adult, mild persistent, uncomplicated 11/25/2024 9:51 AM CDT - 11/25/2024 11:59 PM CDT Hospital Encounter [facility] Medicine Pulmonary [address] [facility] [address] [place] [address] Mixed obstructive and restrictive ventilatory defect Discharge Disposition: Discharge to home or self care 11/11/2024 9:[address] [facility] Medicine Neuro Sleep [address] [facility] 6th [address] [place] [address] Bebe Loredo MD Chronic respiratory failure with hypoxia and hypercapnia (HCC) (Primary Dx); Mild obstructive sleep apnea; On home oxygen therapy 11/10/[address] [facility] Medicine Neuro Sleep [address] 6[address] [place] [address] Vickie Mosqueda RN from Last 3 Months Immunizations Immunization Administration Dates Next Due Influenza, [...] Added aut omatically from request for surgery [id number] Lesion of left eyelid 12/16/2021 Added auto matically from request for surgery [id number] Hypoxia Family History Medical History Relation Name [...] Mass Index 35.4 11/25/2024 10:37 AM CDT Plan of Treatment Health [...] 12/03/2014 Pneumococcal vaccine 65+ Completed 10/27/2020, 03/28 Procedures Procedure Name Priority Date/Time Associated Diagnosis Comments PULMONARY FUNCTION TEST (PFT) Routine 11/25/2024 10:19 AM CDT Mixed obstructive and restrictive ventilatory defect from Last 3 Months Results * Pulmonary Function Test - (11/25/2024 10:19 AM CDT) FVC PRE 1.[address] [facility] FVC %PRE PRED 51 % [facility] FEV1 PRE 1.15 L [facility] FEV1 %PRE PRED 51 % [facility] FEV1/FVC PRE 77.7 % [facility] Anatomical Region Laterality Modality PFT 11/25/2024 9:56 AM CDT Narrative 11/25/2024 7:26 PM CDT Table formatting from the original result was not included. [facility] Division of Pulmonary & Critical Care Medicine [address] [place] [address]; [place] [address]; [place] [address]; [phone] Pulmonary Function Laboratory Pulmonary Stress Test Simple/Oxygen [...] Work [distance (m) x body wt (kg)]: 63039 kg.m (normal >60,000kg.m) Oxygen required to maintain [...] with the written final report. PFT performed at:->[facility] Adult PFT Lab- CAM-8D Procedure:->Spirometry Procedure:->Oxygen Assessment [...] and %HbO2 is age dependent. However, the [facility] Pulmonary Function Laboratory defines hypoxemia as a PaO2 <56 mm Hg or a %HbO2 <89%. Starting on February of 2024 the [facility] Pulmonary Function Laboratory utilizes race neutral GLI Global normative equations. us Serina David Frausto REAL ESTATE OPERATIONS MANAGER PFT ORDERABLES Final Res ult from Last 3 Months Insurance MEDICARE [facility] Address: [address] [address] [place] [address] [facility] MEDICARE [facility] Member Subscriber Plan / Payer (Ef fective 2021-Present) Name:Lucita Vallejo Relation to Subscriber:Self Name:Lucita Vallejo Payer ID:[id number] Group ID:Not on file Type:[employer] Address: [facility] [address] [address] [place] [address] MEDICARE [facility] Member Subscriber Plan / Payer (Ef fective 2021-Present) Name:Lucita Vallejo Relation to Subscriber:Self Name:Lucita Vallejo Payer ID:[id number] Group ID:Not on file Type:COMMERCIAL Address: [facility] [address] [place] [id number] MEDICARE [facility] Care Teams Manager Completions Relationship Specialty Start Date End Date Sreedhar Ortega MD [address] [place] [address] PCP - General Internal Medicine 12/14/21 Jacobo Becker MD [address] [facility] [address] [place] [address] Referring Physician Pulmonary Disease 05/05/22 Bill Ortega MD [address] [facility] [address] [place] [address] Consulting Physician Cardiology 05/05/22 Bebe Loredo MD [address] [facility] NEUROLOGY SLEEP MED, [address] [address] Consulting Physician Sleep Medicine 07/27/22 Luis A Hernandez MD [address] [facility] [address] [address] Consulting Physician Cardiovascular Disease 05/13/24
--- OUTSIDE RECORDS SUMMARY | 2024-11-26 11:25 | XMS_ITS | Encounter Summary ---
Author Organization [facility] Address [address] [place] [address] Phone Care Team Providers Care Montessori Lead Teacher Name Role Phone Bruce Bush MD Primary Care Provider [phone] Sreedhar Ortega MD Primary Care Provider [phone] Jacobo Becker MD Unavailable [phone] Bill Ortega MD Unavailable [phone] Bebe Loredo MD Unavailable Luis A Hernandez MD Unavailable [phone] Encounter Details Date Type Department Care Team [...] on filedocumented in this encounter Care Teams Montessori Lead Teacher Relationship Specialty Start Date End Date Bruce Bush MD [address] [facility] [place] [address] PCP - General Family Medicine 05/24/17 12/13/21 Sreedhar Ortega MD [address] [place], [place] [id number] PCP - General Internal Medicine 12/14/21 Jacobo Becker MD [address] [facility] [address] [place] [address] Referring Physician Pulmonary Disease 05/05/22 Bill Ortega MD [address] [facility] [address] [place] [address] Consulting Physician Cardiology 05/05/22 Bebe Loredo MD [address] [facility] NEUROLOGY SLEEP [facility] [address] [place] [address] Consulting Physician Sleep Medicine 07/27/22 Luis A Hernandez MD [address] [facility] [address] [address] Consulting Physician Cardiovascular Disease 05/13/24 documented as of this encounter
--- OUTSIDE RECORDS SUMMARY | 2024-11-26 11:25 | XMS_ITS | Clinical Summary ---
Author Organization [facility] Address [address] [place] [address] Care Team Providers Care Appliquer Name Role Phone Unavailable Primary Care Provider Unavailabl e Source Comments [facility],non-owned Affiliates and Associated Physician Practices is amultiple site organization consisting of ambulatory clinics and hospital sitesin [place], [place], [place] and [place]. This disclosure is being madepursuant to the Care Everywhere program and may not contain all information available regarding this patient. Last updated 17.[facility] Allergies Active Allergy Reactions Criticality Noted Date [...] on file Legal Sex Female 2:42 PM BUCKLE ATTACHING MACHINE OPERATOR Gender Identity Not on file Sexual Orientation Not on file Last Filed Vital Signs Vital Sign Reading Time Taken Comments Blood Pressure 126/80 01/19/2019 5:21 PM BUCKLE ATTACHING MACHINE OPERATOR Pulse 84 01/19/2019 5:21 PM BUCKLE ATTACHING MACHINE OPERATOR Temperature 37.4 C (99.3 F) 01/19/2019 5:21 PM BUCKLE ATTACHING MACHINE OPERATOR Respiratory Rate 20 01/19/2019 5:21 PM BUCKLE ATTACHING MACHINE OPERATOR Oxygen Saturation 93% 01/19/2019 5:21 PM BUCKLE ATTACHING MACHINE OPERATOR Inhaled Oxygen Concentration - - Weight 104.3 kg (230 lb) 01/19/2019 5:21 PM BUCKLE ATTACHING MACHINE OPERATOR Height 167.6 cm (5' 6) 01/19/2019 5:21 PM BUCKLE ATTACHING MACHINE OPERATOR Body Mass Index 37.12 01/19/2019 5:21 PM BUCKLE ATTACHING MACHINE OPERATOR Plan of Treatment Health Maintenance Due [...] of 2) 02/04/2004 SCREENING FOR DIABETES 01/19/2019 DEPRESSION SCREENING 02/26/2024 COVID-19 VACCINE (1 - 2023-2 5 season) 2024 INFLUENZA VACCINE (#1) 2024 Respiratory Syncytial Virus [...] age to complete this topic Insurance MEDICARE [facility] MEDICARE [facility]
--- OUTSIDE RECORDS SUMMARY | 2024-11-26 11:25 | XMS_ITS | Encounter Summary ---
Author Organization [facility] Address [address] [place] [address] Phone Care Team Providers Care Steeplechase Jockey Name Role Phone Bruce Bush MD Primary Care Provider [phone] Sreedhar Ortega MD Primary Care Provider [phone] Jacobo Becker MD Unavailable [phone] Bill Ortega MD Unavailable [phone] Bebe Loredo MD Unavailable Luis A Hernandez MD Unavailable [phone] Encounter Details Date Type Department Care Team [...] on filedocumented in this encounter Care Teams Steeplechase Jockey Relationship Specialty Start Date End Date Malelolah, Bruce E., MD [address] [facility] [place] [address] PCP - General Family Medicine 05/24/17 12/13/21 Sreedhar Ortega MD [address] [place], [place] [id number] PCP - General Internal Medicine 12/14/21 Jacobo Becker MD [address] [facility] [address] [place] [address] Referring Physician Pulmonary Disease 05/05/22 Bill Ortega MD [address] [facility] [address] [place] [address] Consulting Physician Cardiology 05/05/22 Bebe Loredo MD [address] [facility] NEUROLOGY SLEEP [facility] [address] [place] [address] Consulting Physician Sleep Medicine 07/27/22 Luis A Hernandez MD [address] [facility] [address] [address] Consulting Physician Cardiovascular Disease 05/13/24 documented as of this encounter
--- OUTSIDE RECORDS SUMMARY | 2024-11-26 11:25 | XMS_ITS | Clinical Summary ---
Author Organization [facility] Address [address] [place] [address] Phone Care Team Providers Care Windshield Repair Technician Name Role Phone Bruce Bush MD Primary Care Provider [phone] Allergies Active Allergy Reactions Criticality Noted Date [...] on file Legal Sex Female 9:27 AM LUBRICATOR GRANULATOR Gender Identity Not on file Sexual Orientation Not on file Last Filed Vital Signs Vital Sign Reading Time Taken Comments Blood Pressure 141/90 02/15/2015 7:16 AM LUBRICATOR GRANULATOR Pulse - - Temperature 36.5 C (97.7 F) 02/15/2015 7:16 AM LUBRICATOR GRANULATOR Respiratory Rate 16 02/15/2015 7:16 AM LUBRICATOR GRANULATOR Oxygen Saturation 95% 02/15/2015 7:16 AM LUBRICATOR GRANULATOR Inhaled Oxygen Concentration - - Weight 91.2 kg (201 lb) 02/08/2015 11:00 AM LUBRICATOR GRANULATOR Height 167.6 cm (5' 6) 02/08/2015 11:00 AM LUBRICATOR GRANULATOR Body Mass Index 32.44 02/08/2015 11:00 AM LUBRICATOR GRANULATOR Plan of Treatment Health Maintenance Due Date Last Done Comments Hepatitis C Virus (HCV) Screening 1955 TdaP Immunization 1955 Cologuard 1999 Immunochemical Fecal Occult Blood 1999 Pneumococcal Immunization (5 0+ years) (1 of 1 - PCV) 02/04/2004 Zoster Immunization (1 of 2) 02/04/2004 Influenza Immunization (#1) 2024 SARS-COV-2 Immunization ( - season) 2024 Colonoscopy 02/15/2025 02/15/2015 Colorectal Cancer Screening [...] patient's age to complete this topic Insurance [facility] Care Teams Windshield Repair Technician Relationship Specialty Start Date End Date Bruce Bush MD [address] [place] [address] PCP - General Family Medicine 02/14/15
[2024-11-26 11:30] LABS: Anion Gap 7 mmol/L (4-12); Blood Urea Nitrogen 9 mg/dL (7-17); Calcium 9.1 mg/dL (8.4-10.2); Carbon Dioxide 36 mmol/L (22-30); Chloride 96 mmol/L (98-107); Estimated Glomerular Filt Rate > 60; Glucose 104 mg/dL (65-110); Osmolality Calculated 286 mOsm/kg (285-295); Potassium 3.9 mmol/L (3.4-5.0); Sodium 139 mmol/L (137-145)
[2024-11-26 12:01] LABS: Influenza A QL RT-PCR Negative (Negative); Influenza B QL RT-PCR Negative (Negative); RSV RNA, RT-PCR Negative (Negative); SARS-CoV-2 RNA PCR Negative (Negative)
[2024-11-26 12:21] LABS: Strep Group A RT-PCR NOT DETECTED (Negative)
[2024-11-26 14:49] LABS: Procalcitonin < 0.0 ng/mL
== END 2024-11-26 10:52 | disposition home or self-care (01) ==
LOC: CHSLAB 10:53
PROVIDERS: PCP Internal Medicine; Visit Provider Internal Medicine
DX: J44.1 Chronic obstructive pulmonary disease with (acute) exacerbation (principal); J18.9 Pneumonia, unspecified organism
CPT/HCPCS: 36415; 71046; 80048; 84145; 85025; 87637; 87651